=== PATIENT | female | born 1945 | race American Indian/Alaskan Native ===

== ENCOUNTER 2017-10-06 16:02 | Emergency (ER) | payer MEDICARE, SELFPAY ==
--- NOTE | 2017-10-06 16:25 | PC.NURSE ---
pt states she is on a prayer line (on cell phone) asked if i'd wait.
[2017-10-06 16:50] VITALS: BP 145/70; PULSE 74; RESP 18; TEMP 36.9; O2SAT 96
[2017-10-06 18:18] VITALS: BP 137/64; PULSE 74; RESP 18; O2SAT 99
--- NOTE | 2017-10-06 18:58 | PC.NURSE ---
Patient reports she has had increased bilateral lower leg swelling for the last three days. Restarted her normal dose of lasix in the alst 3 days which has helped. Some weeping to lower leg edema.
--- NOTE | 2017-10-06 19:46 | ED.EXTPRO ---
HPI - Extremity Problem General Chief complaint: Extremity Problem,Nontraumatic Stated complaint: states legs are leaking and swelling Time Seen by Provider: 10/06/17 19:24 Source: patient Mode of arrival: ambulatory Limitations: no limitations History of Present Illness HPI Narrative: Patient is a 72-year-old female presenting with all increased leg redness and pain. She is a known diabetic she also has bilateral lymphedema and swelling. She started taking her water pill 3 days ago which she says has helped a lot however redness seems to be getting worse. She denies fever chills or pain. She is not checking her taking her insulin as often as she should. She has no chest pain heart palpitations shortness of breath or other symptoms. MD Complaint: extremity swelling Related Data Home Medications Medication Instructions Recorded Confirmed furosemide [Lasix] 20 mg PO QDAY #0 04/30/12 09/14/17 insulin glargine [Lantus U-100 60 unit SQ HS #0 04/30/12 09/14/17 Insulin] insulin regular human [Humulin R 40 u SQ BID #0 04/30/12 09/14/17 Regular U-100 Insuln] lisinopril 2.5 DAILY #0 04/30/12 09/14/17 alprazolam 0.5 mg tablet 0.5 mg PO BID 09/14/17 09/14/17 carvedilol PO 09/14/17 09/14/17 hydrocodone 5 mg-acetaminophen 325 1 tab PO Q6H PRN 09/14/17 09/14/17 mg tablet sertraline PO 09/14/17 09/14/17 warfarin PO 09/14/17 09/14/17 Previous Rx's Medication Instructions Recorded doxycycline hyclate 100 mg tablet 200 mg PO DAILY #7 tab 09/14/17 clindamycin HCl 300 mg PO QID #28 cap 10/06/17 mupirocin 1 applictn TOP BID #15 gram 10/06/17 Allergies Allergy/AdvReac Type Severity Reaction Status Date / Time Iodinated Contrast- Oral and Allergy Mild Unverified 06/16/17 11:56 IV Dye [Iodinated Contrast Media - IV Dye] Sulfa (Sulfonamide Allergy Mild Unverified 06/16/17 11:56 Antibiotics) Review of Systems Review of Systems All systems reviewed & are unremarkable except as noted in HPI and below Constitutional Reports as per HPI, Denies fever(s) and Denies frequent falls Cardiovascular Denies chest pain, Denies irregular heart rhythm, Denies lightheadedness, Denies palpitations, Denies dyspnea, Denies dyspnea on exertion and Denies orthopnea Respiratory Denies cough, Denies dyspnea, Denies dyspnea on exertion and Denies wheezing Gastrointestinal Gastrointestinal: Denies abdominal pain, Denies change in bowel habits, Denies diarrhea, Denies nausea and Denies vomiting Musculoskeletal Reports as per HPI, Denies back pain, Denies muscle weakness, Denies numbness and Denies tingling Integumentary/Breasts Reports as per HPI Neurologic Denies frequent falls, Denies numbness and Denies tingling Endocrine Denies palpitations Allergic/Immunologic Denies wheezing [facility] Medical History Diabetes (Acute) Lymphedema (Acute) Non-ST elevated myocardial infarction (Acute) Social History Smoking Status: Current every day smoker alcohol intake: never Exam Initial Vital Signs Initial Vital Signs: Vital Signs Temperature 98.4 F 10/06/17 16:50 Pulse Rate 74 10/06/17 16:50 Respiratory Rate 18 10/06/17 16:50 Blood Pressure 145/70 H 10/06/17 16:50 Pulse Oximetry 96 10/06/17 16:50 GENERAL: Obese female sitting in wheelchair no acute distress eating HEENT: Head atraumatic,EOMI, pupils reactive CARDIOVASCULAR: Regular rate and rhythm without murmurs, rubs or gallops. RESPIRATORY: Breath sounds equal bilaterally, no wheezes rales or rhonchi. ABDOMEN: Soft, nontender. Normoactive bowel sounds all 4 quadrants. No guarding or rebound. EXTREMITIES: Normal range of motion, no clubbing or edema. Neurovascularly intact NEUROLOGICAL: Alert and oriented x4.Normal gait and speech. Cranial nerves II through XII grossly intact. SKIN: Bilateral lower extremities chronically lymphedema with erythema, does not extend be above the knee in either leg. left side does have < 0.25 cm open wound with clear drainage. Course Orders Ordered: ED Orders 10/06/17 20:00 Basic Metabolic Panel Stat Complete Blood Count AUTO DIFF Stat Partial Thromboplastin Time Stat Prothrombin Time INR Stat Discontinued Medications Clindamycin Phosphate (Cleocin) 600 mg in 50 mls @ 50 mls/hr IV NOW ONE Stop: 10/06/17 20:35 Last Infusion: 10/06/17 21:11 Dose: 0 mls/hr Admin: 10/06/17 19:55 Dose: 50 mls/hr Vital Signs - 8 hr 10/06/17 16:50 10/06/17 18:18 10/06/17 20:57 Temperature 98.4 F Pulse Rate 74 74 74 Respiratory Rate 18 18 14 Blood Pressure 145/70 H Blood Pressure [Left Arm] 137/64 H 130/64 H Pulse Oximetry 96 99 95 MDM - Extremity (Nontraumatic) Lab Data Result diagrams: 10/06/17 20:00 10/06/17 20:00 Lab Results 10/06/17 10/06/17 10/06/17 Range/Units 20:00 20:00 20:00 WBC 12.2 H (4.5-11.0) X10^3/uL RBC 5.23 H (4.0-5.2) X10^6/uL Hgb 12.9 (12.0-16.0) g/dL Hct 39.6 (36-46) % MCV 75.8 L (80-100) fL MCH 24.6 L (26-34) PG MCHC 32.5 (30-36) % RDW 17.1 H (11.6-14.8) % Plt Count 387 (150-400) X10^3/uL Neut % (Auto) 53.2 (50-75) % Lymph % (Auto) 34.6 (25-40) % [place] % (Auto) 8.4 (3-14) % Eos % (Auto) 2.1 (2-4) % Baso % (Auto) 1.7 (0-2) % Neut # (Auto) 6500 H (2692-7634) /uL PT 13.9 H (10.1-12.7) SECONDS INR 1.3 (0.9-1.3) APTT 27 (26.4-36.2) SECONDS Sodium 141 (137-145) mmol/L Potassium 4.4 (3.4-5.1) mmol/L Chloride 105 (98-107) mmol/L Carbon Dioxide 27 (22-32) mmol/L BUN 11 (7-17) mg/dL Creatinine 0.60 (0.52-1.04) mg/dL Estimated GFR > 60.0 (>60) mL/min BUN/Creatinine Ratio 18.3 (6-22) Glucose 145 H (80-110) mg/dL Calcium 9.0 (8.4-10.2) mg/dL MDM Narrative Medical decision making narrative: Patient does not appear septic she is afebrile not tachycardic. Glucose is slightly elevated 145. Mild leukocytosis at 12. At this time treated outpatient with antibiotics and closely monitor. Patient agrees with this plan. Discharge Plan Departure Patient Disposition: Home, Self-Care Clinical Impression: Cellulitis, Lymphedema Discharge Date/Time: 10/06/17 21:21 Interventions: ED Discharge Assessment Last Done: 10/06/17 21:21 Instructions: DI for Cellulitis -- Adult Activity Restrictions/Additional Instructions: *You have been diagnosed with cellulitis *What to do: *Continue to take medications as directed Clindamycin 4 times a day for 1 week start tomorrow -Mupirocin apply to affected area 3 times a day At your request you're medications have been faxed to [facility] in [place] *Follow up with your primary care provider in 2-3 days *Return to ER if you should have increasing redness, fever, increasing drainage or any new, worsening or concerning symptoms Prescriptions: New clindamycin HCl 300 mg capsule 300 mg PO QID Qty: 28 RF: 0 mupirocin 2 % ointment 1 applictn TOP BID Qty: 15 RF: 0 No Action warfarin PO RF: 0 hydrocodone-acetaminophen 5-325 mg tablet 1 tab PO Q6H PRNRF: 0 carvedilol PO RF: 0 alprazolam [Xanax] 0.5 mg tablet 0.5 mg PO BID RF: 0 sertraline PO RF: 0 doxycycline hyclate 100 mg tablet 200 mg PO DAILY Qty: 7 RF: 0 insulin glargine [Lantus U-100 Insulin] 100 UNIT/1 ML solution 60 unit SQ HS Qty: 0 RF: 0 insulin regular human [Humulin R Regular U-100 Insuln] 100 UNIT/1 ML solution 40 u SQ BID Qty: 0 RF: 0 furosemide [Lasix] 20 MG tablet 20 mg PO QDAY Qty: 0 RF: 0 lisinopril 2.5 MG tablet 2.5 DAILY Qty: 0 RF: 0 Referrals: George Sood MD [Primary Care Provider] -
[2017-10-06] MEDS: CLINDAMYCIN 600 MG/50 ML PIGGYBACK 50 MG IV (19:55)
[2017-10-06 20:21] LABS: Add Manual Diff / Slide Review NO; Basophils Percent Auto 1.7 % (0-2); Eosinophils Percent Auto 2.1 % (2-4); Hematocrit 39.6 % (36-46); Hemoglobin 12.9 g/dL (12.0-16.0); Lymphocytes Percent Auto 34.6 % (25-40); Mean Corpuscular HGB Conc 32.5 % (30-36); Mean Corpuscular Hemoglobin 24.6 PG (26-34); Mean Corpuscular Volume 75.8 fL (80-100); Monocytes Percent Auto 8.4 % (3-14); Neutrophils Absolute Auto 6500 /uL (3000-5900); Neutrophils Percent Auto 53.2 % (50-75); Platelet Count 387 X10^3/uL (150-400); Red Blood Cell Count 5.23 X10^6/uL (4.0-5.2); Red Cell Distribution Width 17.1 % (11.6-14.8); White Blood Cell Count 12.2 X10^3/uL (4.5-11.0)
[2017-10-06 20:26] LABS: INR 1.3 (0.9-1.3); Prothrombin Time 13.9 SECONDS (10.1-12.7)
[2017-10-06 20:28] LABS: PTT Partial Thromboplastin Tim 27 SECONDS (26.4-36.2)
[2017-10-06 20:30] LABS: BUN Creatinine Ratio 18.3 (6-22); Blood Urea Nitrogen 11 mg/dL (7-17); Carbon Dioxide 27 mmol/L (22-32); Chloride 105 mmol/L (98-107); Estimated Glomerular Filt Rate > 60.0 mL/min (>60); Glucose 145 mg/dL (80-110); Sodium 141 mmol/L (137-145)
[2017-10-06 20:34] LABS: HEMOLYSIS 105 (0-50)
[2017-10-06 20:35] LABS: Potassium 4.4 mmol/L (3.4-5.1)
[2017-10-06 20:57] VITALS: BP 130/64; PULSE 74; RESP 14; O2SAT 95
== END 2017-10-06 21:21 | disposition home or self-care (01) ==
PROVIDERS: Emergency Provider Emergency Medicine; PCP Family Medicine
DX: L03.90 Cellulitis, unspecified (principal); I89.0 Lymphedema, not elsewhere classified
CPT/HCPCS: 36591; 80048; 85025; 85610; 85730; 96365; 99283; 99284

== ENCOUNTER 2018-09-15 21:10 | Emergency (ER) | payer MEDICARE, MEDICAID, SELFPAY ==
[2018-09-15 21:14] VITALS: BP 158/67; PULSE 70; RESP 22; TEMP 36.2; O2SAT 94
[2018-09-15 22:00] VITALS: BP 156/54; PULSE 70; RESP 28; O2SAT 90
--- NOTE | 2018-09-15 22:11 | DI.RAD.S_ITS ---
PROCEDURE: XR CHEST 1V INDICATIONS: fall with chest pain TECHNIQUE: One view of the chest was acquired. COMPARISON: [facility], CHEST 2 VIEW, 11/14/2014, 16:01. [facility], , CHEST 2 VIEW, 08/12/2015, 19:56. FINDINGS: Surgical changes and devices: None. Lungs and pleura: There is diffuse interstitial prominence and ground glass opacities without focal consolidation. Streaky bibasilar opacities are again noted. There is mild loss of vascular distinctness. Hazy opacities of the bilateral costophrenic angles may represent small pleural effusions. No pneumothorax. Mediastinum: Cardiomediastinal contours remain stable Bones and chest wall: No suspicious bony lesions. Overlying soft tissues appear unremarkable. IMPRESSION: Diffuse interstitial prominence and ground glass opacities with mild loss of vascular distinctness may represent pulmonary edema. Concurrent chronic background interstitial disease may be present. Inflammatory/infectious process not excluded if clinically appropriate. No focal consolidation. Dictated by: Dinesh Corbett M.D. on 09/16/2018 at 7:58 Approved by: Dinesh Corbett M.D. on 09/16/2018 at 8:04
[2018-09-15 22:30] VITALS: BP 152/59; PULSE 71; O2SAT 89
[2018-09-15 22:36] LABS: Add Manual Diff / Slide Review NO; Basophils Absolute Auto 100 /uL (0-100); Basophils Percent Auto 0.7 % (0-2); Eosinophils Absolute Auto 200 /uL (0-450); Eosinophils Percent Auto 2.2 % (2-4); Lymphocytes Absolute Auto 3300 /uL (1100-4500); Lymphocytes Percent Auto 29.3 % (25-40); Mean Corpuscular HGB Conc 32.6 % (30-36); Mean Corpuscular Hemoglobin 26.2 PG (26-34); Mean Corpuscular Volume 80.5 fL (80-100); Monocytes Absolute Auto 900 /uL (0-900); Neutrophils Absolute Auto 6800 /uL (1500-7000); Neutrophils Percent Auto 59.8 % (50-75); Platelet Count 327 X10^3/uL (150-400); Red Blood Cell Count 4.96 X10^6/uL (4.0-5.2); Red Cell Distribution Width 16.2 % (11.6-14.8); White Blood Cell Count 11.4 X10^3/uL (4.5-11.0)
[2018-09-15 22:46] LABS: BUN Creatinine Ratio 18.3 (6-22); Blood Urea Nitrogen 11 mg/dL (7-17); Calcium 9.1 mg/dL (8.4-10.2); Carbon Dioxide 29 mmol/L (22-32); Chloride 110 mmol/L (98-107); Estimated Glomerular Filt Rate > 60.0 mL/min (>60); Glucose 122 mg/dL (80-110); HEMOLYSIS < 15 (0-50); Potassium 3.3 mmol/L (3.4-5.1); Sodium 145 mmol/L (137-145)
[2018-09-15 22:58] LABS: Troponin I < 0.012 ng/mL (0.01-0.034)
[2018-09-15 23:00] VITALS: BP 166/64; PULSE 69; O2SAT 93
--- NOTE | 2018-09-15 23:51 | DI.CT.S_ITS ---
PROCEDURE: CT HEAD/BRAIN WO CON INDICATIONS: headache, dizzy, weak, hx brain bleed TECHNIQUE: Noncontrast 4.5 mm thick angled axial sections acquired from the foramen magnum to the vertex, with coronal and sagittal reformats. For radiation dose reduction, the following was used: automated exposure control, adjustment of mA and/or kV according to patient size. COMPARISON: [facility], MR, MR BRAIN WITH/WITHOUT CONTRAST, 09/15/2017, 19:01. [facility], CT, CT HEAD WITHOUT CONTRAST, 08/25/2017, 21:18. FINDINGS: Image quality: Excellent. CSF spaces: Basal cisterns are patent. No extra-axial fluid collections. The ventricles are stable in size and shape. Brain: No intracranial bleeds or masses. There is cerebral volume loss for age, with resultant ventricular and sulcal prominence. There are periventricular and deep white matter chronic small vessel ischemic changes. Stable CT appearance of focal area of calcification involving the medial right middle pineal fossa adjacent to the upper portion of the clivus measuring approximately 10 x 6 mm on axial image 11, series 2. There is intracranial internal carotid artery atherosclerosis. Skull and face: Calvarium and visualized facial bones appear intact, without suspicious lesions. Sinuses: Visualized sinuses and mastoids are clear. IMPRESSION: 1. CT head without acute intracranial abnormalities. 2. Stable age-related senescent changes and sequela of chronic small vessel ischemic disease. 3. Stable appearance of medial right middle cranial fossa meningioma. Dictated by: Dinesh Corbtet M.D. on 09/16/2018 at 8:25 Approved by: Dinesh Corbett M.D. on 09/16/2018 at 8:32
[2018-09-16] MEDS: POTASSIUM CHLORIDE 20 MEQ/15 ML UDC 40 MEQ PO (00:23)
[2018-09-16 00:33] VITALS: BP 157/70; PULSE 73; RESP 95
[2018-09-16 02:00] VITALS: BP 150/53; PULSE 72; RESP 24; O2SAT 91
[2018-09-16 03:00] VITALS: BP 160/60; PULSE 74; RESP 24; O2SAT 94
[2018-09-16 03:33] LABS: Calcium Oxalate Crystals Urine Occasional; RBC Urine 0-1/HPF (0-5/HPF); Squamous Epithelial Cell Urine 1-5 /HPF (0-5/HPF); Uric Acid Crystals Urine Few
[2018-09-16 03:34] LABS: Bacteria Urine Few (2-10); Hyaline Casts Urine 0-1/LPF
[2018-09-16 03:39] LABS: Culture Indicated Urine Specimen Cultured; WBC Urine 10-30/HPF (0-5/HPF)
--- NOTE | 2018-09-16 04:53 | ED_ITS ---
HPI - Weakness General Chief complaint: Weakness Stated complaint: fall month ago, ribs hurt Time Seen by Provider: 09/15/18 21:17 Source: patient and family Mode of arrival: ambulatory Limitations: no limitations History of Present Illness HPI Narrative: 73-year-old female nonsmoker with history of diabetes presents with significant other and largely nonspecific complaints including generalized weakness and all-over body pain. She states she suffered a fall about 3 weeks ago and has some rib pain as well as coccyx pain as a result. She denies any shortness of breath or hemoptysis. She has not dizzy and denies blurred vision or trouble with speech. She has no focal neurologic findings. She denies any nausea, vomiting or diarrhea. She denies dysuria, frequency or urgency. She denies any ongoing or repeat falls MD Complaint: generalized weakness Onset (ago): week(s) Duration: intermittent Location: generalized Migration: none Severity: mild Relieving factors: none Exacerbating factors: none Associated symptoms: other Related Data Home Medications Medication Instructions Recorded Confirmed furosemide [Lasix] 20 mg PO QDAY #0 04/30/12 09/14/17 insulin glargine [Lantus U-100 60 unit SQ HS #0 04/30/12 09/14/17 Insulin] insulin regular human [Humulin R 40 u SQ BID #0 04/30/12 09/14/17 Regular U-100 Insuln] lisinopril 2.5 DAILY #0 04/30/12 09/14/17 alprazolam 0.5 mg tablet 0.5 mg PO BID 09/14/17 09/14/17 carvedilol PO 09/14/17 09/14/17 hydrocodone 5 mg-acetaminophen 325 1 tab PO Q6H PRN 09/14/17 09/14/17 mg tablet sertraline PO 09/14/17 09/14/17 warfarin PO 09/14/17 09/14/17 Previous Rx's Medication Instructions Recorded doxycycline hyclate 100 mg tablet 200 mg PO DAILY #7 tab 09/14/17 clindamycin HCl 300 mg PO QID #28 cap 10/06/17 mupirocin 1 applictn TOP BID #15 gram 10/06/17 ciprofloxacin HCl 500 mg PO BID 5 Days #10 tab 09/16/18 Allergies Allergy/AdvReac Type Severity Reaction Status Date / Time Iodinated Contrast- Oral and Allergy Mild Unverified 06/16/17 11:56 IV Dye [Iodinated Contrast Media - IV Dye] Sulfa (Sulfonamide Allergy Mild Unverified 06/16/17 11:56 Antibiotics) amoxicillin [From Augmentin] Allergy Verified 09/16/18 00:24 clavulanic acid Allergy Verified 09/16/18 00:24 [From Augmentin] Review of Systems Constitutional Denies chills, Denies fever(s), Denies lethargy and Reports weakness Comments: Generalized body pain Eyes Denies change in vision, Denies eye discharge, Denies irritation and Denies loss of vision ENT Ears, Nose, Mouth, and Throat: Denies change in voice, Denies neck pain and Denies sore throat Cardiovascular Denies chest pain, Denies irregular heart rhythm, Denies lightheadedness, Denies palpitations, Denies dyspnea, Denies dyspnea on exertion and Denies orthopnea Comments: Bilateral rib pain Respiratory Denies cough, Denies dyspnea, Denies dyspnea on exertion and Denies wheezing Gastrointestinal Gastrointestinal: Denies abdominal pain, Denies change in bowel habits, Denies diarrhea, Denies nausea and Denies vomiting Comments: Coccyx pain Genitourinary Denies hematuria, Denies flank pain, Denies urinary incontinence and Denies urinary urgency Musculoskeletal Denies neck pain Integumentary/Breasts Denies pruritus, Denies erythema, Denies rash and Denies wounds Neurologic Denies confusion, Denies loss of vision and Reports weakness Psychiatric Denies anxiety, Denies confusion, Denies depression, Denies homicidal ideation and Denies suicidal ideation Endocrine Denies palpitations Hematologic/Lymphatic Denies easy bruising Allergic/Immunologic Denies wheezing [facility] Medical History Brain tumor (Acute) Diabetes (Acute) Lymphedema (Acute) Non-ST elevated myocardial infarction (Acute) Social History Smoking Status: Current every day smoker alcohol intake: never Social History Smoking Status: Current every day smoker alcohol intake: never Exam Narrative Exam Narrative: GENERAL: 73-year-old female appears stated age, chronically i ll, obviously uncomfortable. Morbidly obese HEAD: Atraumatic. Normocephalic. No temporal or scalp tenderness. EYES: Pupils equal round and reactive. Extraocular motions intact. No scleral icterus. No injection or drainage. ENT: Nose without bleeding, purulent drainage or septal hematoma. Throat without erythema, tonsillar hypertrophy or exudate. Uvula midline. Airway patent. NECK: Trachea midline. No JVD or lymphadenopathy. Supple, nontender, no meningeal signs. CARDIOVASCULAR: Regular rate and rhythm without murmurs, gallops, or rubs. RESPIRATORY: Pain with palpation of bilateral ribs, no crepitance Clear to auscultation. Breath sounds equal bilaterally. No wheezes, rales, or rhonchi. GASTROINTESTINAL: Abdomen soft, non-tender, nondistended. No hepato- splenomegaly, or palpable masses. No guarding. EXTREMITIES: No clubbing, cyanosis, or edema. No joint tenderness, effusion, or edema noted. BACK: Nontender without deformity or crepitance. No flank tenderness. NEURO: AOx3. SKIN: No rash or erythema. Initial Vital Signs Initial Vital Signs: Vital Signs Temperature 97.1 F L 09/15/18 21:14 Pulse Rate 70 09/15/18 21:14 Respiratory Rate 22 09/15/18 21:14 Blood Pressure 158/67 H 09/15/18 21:14 Pulse Oximetry 94 09/15/18 21:14 Course Orders Ordered: ED Orders 09/15/18 22:11 XR chest 1V Stat EKG-12 Lead Stat 09/15/18 22:25 Basic Metabolic Panel Stat Complete Blood Count AUTO DIFF Stat Troponin I Stat 09/15/18 23:51 CT head/brain wo con Stat 09/16/18 03:14 Urine Culture Stat Urine Microscopic Stat Discontinued Medications Potassium Chloride (Potassium Chloride) 40 meq PO NOW ONE Stop: 09/15/18 23:52 Last Admin: 09/16/18 00:23 Dose: 40 meq Vital Signs - 8 hr 09/15/18 22:00 09/15/18 22:30 09/15/18 23:00 Pulse Rate 70 71 69 Respiratory Rate 28 H Blood Pressure Blood Pressure [Left Arm] 156/54 H 152/59 H 166/64 H Pulse Oximetry 90 L 89 L 93 09/16/18 00:33 09/16/18 02:00 09/16/18 03:00 Pulse Rate 73 72 74 Respiratory Rate 95 H 24 24 Blood Pressure 160/60 H Blood Pressure [Left Arm] 157/70 H 150/53 H Pulse Oximetry 91 94 MDM - Weakness Medical Records Attestation: I reviewed the patient's medical records. Lab Data Result diagrams: 09/15/18 22:25 09/15/18 22:25 Lab Results 09/15/18 09/15/18 09/16/18 Range/Units 22:25 22:25 03:14 WBC 11.4 H (4.5-11.0) X10^3/uL RBC 4.96 (4.0-5.2) X10^6/uL Hgb 13.0 (12.0-16.0) g/dL Hct 40.0 (36-46) % MCV 80.5 (80-100) fL MCH 26.2 (26-34) PG MCHC 32.6 (30-36) % RDW 16.2 H (11.6-14.8) % Plt Count 327 (150-400) X10^3/uL Neut % (Auto) 59.8 (50-75) % Lymph % (Auto) 29.3 (25-40) % [place] % (Auto) 8.0 (3-14) % Eos % (Auto) 2.2 (2-4) % Baso % (Auto) 0.7 (0-2) % Neut # (Auto) 6800 (5170-6964) /uL Lymph # (Auto) 3300 (7386-3571) /uL [place] # (Auto) 900 (0-900) /uL Eos # (Auto) 200 (0-450) /uL Baso # (Auto) 100 (0-100) /uL Sodium 145 (137-145) mmol/L Potassium 3.3 L (3.4-5.1) mmol/L Chloride 110 H (98-107) mmol/L Carbon Dioxide 29 (22-32) mmol/L BUN 11 (7-17) mg/dL Creatinine 0.60 (0.52-1.04) mg/dL Estimated GFR > 60.0 (>60) mL/min BUN/Creatinine Ratio 18.3 (6-22) Glucose 122 H (80-110) mg/dL Calcium 9.1 (8.4-10.2) mg/dL Troponin I < 0.012 (0.01-0.034) ng/mL Urine RBC 0-1/hpf (0-5/HPF) Urine WBC 10-30/hpf H (0-5/HPF) Ur Squamous Epith Cells 1-5 /hpf (0-5/HPF) Calcium Oxalate Crystal Occasional H Uric Acid Crystals Few Urine Bacteria Few (2-10) H (None) Hyaline Casts 0-1/lpf (None) Urine Yeast 1-5/hpf H (None) Ur Culture Indicated? Specimen cultured Urine Dip Bedside Urine Glucose Negative Bedside Urine Bilirubin - Negative Bedside Urine Ketone - Negative Urine Specific [place] 1.020 Bedside Urine Occult Blood - Negative Bedside Urine pH 6.5 Bedside Urine Protein + 30 Bedside Urine Urobilinogen +/- 1mg Bedside Urine Nitrite + Positive Bedside Urine Leukocytes ++ 125 Esterase Imaging Data Chest x-ray: My impression: No Fx. No PNA CT scan - head: Radiologist's impression: No significant abnormalities MDM Narrative Medical decision making narrative: 73-year-old female with prolonged, generalized and nonspecific weakness complains of bilateral rib pain and chest x-ray demonstrating no obvious fractures. She has coccyx pain but no signific ant reproducibility of his pain. Labs are largely unremarkable, mild hypokalemia. Urine notes UTI. Patient ambulates to bathroom. Patient has had all of her questions answered to her apparent satisfaction. Patient given return precautions. She understands and is in agreement with the plan. She was actually discharged prior to receiving prescription for urinary tract infection, call placed to the patient Discharge Plan Departure Patient Disposition: Home Clinical Impression: Weakness, Acute coccygeal pain, Acute hypokalemia, Acute UTI Discharge Date/Time: 09/16/18 03:00 Interventions: ED Discharge Assessment Last Done: 09/16/18 03:00 Instructions: DI for Coccyx Fracture Activity Restrictions/Additional Instructions: *You have been diagnosed with [chronic generalized weakness with coccyx pain] *What to do: *Take medications as directed: Your antibiotic has been electronically transmitted to your pharmacy in [place] *Follow up with your primary care provider in 2-3 days, call for an appointment. Let them know you were seen in the Emergency Department and that we ask that you be seen in follow up *Return to ER if you should have any new, worsening or concerning symptoms Prescriptions: New ciprofloxacin HCl 500 mg tablet 500 mg PO BID 5 Days Qty: 10 RF: 0 No Action warfarin PO RF: 0 hydrocodone-acetaminophen 5-325 mg tablet 1 tab PO Q6H PRNRF: 0 carvedilol PO RF: 0 alprazolam [Xanax] 0.5 mg tablet 0.5 mg PO BID RF: 0 sertraline PO RF: 0 doxycycline hyclate 100 mg tablet 200 mg PO DAILY Qty: 7 RF: 0 insulin glargine [Lantus U-100 Insulin] 100 UNIT/1 ML solution 60 unit SQ HS Qty: 0 RF: 0 insulin regular human [Humulin R Regular U-100 Insuln] 100 UNIT/1 ML solution 40 u SQ BID Qty: 0 RF: 0 furosemide [Lasix] 20 MG tablet 20 mg PO QDAY Qty: 0 RF: 0 lisinopril 2.5 MG tablet 2.5 DAILY Qty: 0 RF: 0 clindamycin HCl 300 mg capsule 300 mg PO QID Qty: 28 RF: 0 mupirocin 2 % ointment 1 applictn TOP BID Qty: 15 RF: 0 Referrals: George Sood MD [Primary Care Provider] -
== END 2018-09-16 03:00 | disposition home or self-care (01) ==
PROVIDERS: Emergency Provider Emergency Medicine; PCP Family Medicine
DX: R53.1 Weakness (principal); M53.3 Sacrococcygeal disorders, not elsewhere classified; E87.6 Hypokalemia; N39.0 Urinary tract infection, site not specified; I25.2 Old myocardial infarction; R03.0 Elevated blood-pressure reading, without diagnosis of hypertension; R06.02 Shortness of breath; W19.XXXA Unspecified fall, initial encounter; Z86.03 Personal history of neoplasm of uncertain behavior; Z79.01 Long term (current) use of anticoagulants
CPT/HCPCS: 36591; 70450; 71045; 80048; 81003; 81015; 84484; 85025; 87086; 93005; 99283; 99285

== ENCOUNTER 2018-10-09 05:16 | Emergency (ER) | payer MEDICARE, MEDICAID, SELFPAY ==
[2018-10-09 05:18] VITALS: BP 139/66; PULSE 74; RESP 20; TEMP 36.6; O2SAT 95; BMI 34.3
--- NOTE | 2018-10-09 05:24 | DI.RAD.S_ITS ---
PROCEDURE: XR CHEST 2V INDICATIONS: cough, congestion TECHNIQUE: 2 views of the chest were acquired. COMPARISON: [facility], , CHEST 2 VIEW, 11/14/2014, 16:01. [facility], , CHEST 2 VIEW, 08/12/2015, 19:56. [facility], , XR CHEST 1V, 09/15/2018, 22:22. FINDINGS: Surgical changes and devices: None. Lungs and pleura: No focal infiltrates are seen. Interstitial prominence is seen. No pleural effusions or pneumothorax. Mediastinum: The cardiac contours are within normal limits. The aorta demonstrates calcification and tortuosity. Bones and chest wall: No suspicious bony abnormalities. Accentuated thoracic kyphosis is seen. Age-appropriate bony degenerative changes are seen. Soft tissues appear unremarkable. IMPRESSION: Interstitial prominence is seen throughout. The interstitial prominence is nonspecific, yet may be related to pulmonary edema. Dictated by: Nicolás Conner M.D. on 10/09/2018 at 7:13 Approved by: Nicolás Conner M.D. on 10/09/2018 at 7:14
[2018-10-09 05:33] VITALS: BP 118/61; PULSE 74; RESP 20; O2SAT 94
--- NOTE | 2018-10-09 05:35 | ED.URI ---
HPI - URI/Sore Throat General Chief Complaint: Upper Respiratory Symptoms Stated Complaint: nose, head sinuses and chest problem Time Seen by Provider: 10/09/18 05:20 Source: patient and family Mode of arrival: ambulatory Limitations: no limitations History of Present Illness HPI Narrative: 73F smoker presents with runny nose, nasal congestion and cough with occasional sputum production for the past few days. She denies any fever chills. She has had no nausea, vomiting or diarrhea. She has some expiratory wheeze. She has some left sided chest pain which is sharp and stabbing and worse with palpation, inspiration, and cough. She denies recent travel. She has not been using breathing treatments. She states she frequently has atypical pneumonia and bronchitis which responds to a [facility] Related Data Home Medications Medication Instructions Recorded Confirmed furosemide [Lasix] 20 mg PO QDAY #0 04/30/12 09/14/17 insulin glargine [Lantus U-100 60 unit SQ HS #0 04/30/12 09/14/17 Insulin] insulin regular human [Humulin R 40 u SQ BID #0 04/30/12 09/14/17 Regular U-100 Insuln] lisinopril 2.5 DAILY #0 04/30/12 09/14/17 alprazolam 0.5 mg tablet 0.5 mg PO BID 09/14/17 09/14/17 carvedilol PO 09/14/17 09/14/17 hydrocodone 5 mg-acetaminophen 325 1 tab PO Q6H PRN 09/14/17 09/14/17 mg tablet sertraline PO 09/14/17 09/14/17 warfarin PO 09/14/17 09/14/17 Previous Rx's Medication Instructions Recorded doxycycline hyclate 100 mg tablet 200 mg PO DAILY #7 tab 09/14/17 clindamycin HCl 300 mg PO QID #28 cap 10/06/17 mupirocin 1 applictn TOP BID #15 gram 10/06/17 azithromycin See Rx Instructions .ROUTE 10/09/18 .COMPLEX #6 tab benzonatate [Tessalon Perles] 100 mg PO BID-TID PRN #10 cap 10/09/18 prednisone 20 mg PO DAILY #5 tab 10/09/18 Allergies Allergy/AdvReac Type Severity Reaction Status Date / Time Iodinated Contrast- Oral and Allergy Mild Unverified 06/16/17 11:56 IV Dye [Iodinated Contrast Media - IV Dye] Sulfa (Sulfonamide Allergy Mild Unverified 06/16/17 11:56 Antibiotics) amoxicillin [From Augmentin] Allergy Verified 09/16/18 00:24 clavulanic acid Allergy Verified 09/16/18 00:24 [From Augmentin] Review of Systems Constitutional Denies chills, Reports fatigue, Denies fever(s), Denies lethargy and Denies weakness Eyes Denies change in vision, Denies eye discharge, Denies irritation and Denies loss of vision ENT Ears, Nose, Mouth, and Throat: Denies change in voice, Reports nasal discharge, Denies neck pain and Denies sore throat Cardiovascular Denies chest pain, Denies irregular heart rhythm, Denies lightheadedness, Denies palpitations, Denies dyspnea, Denies dyspnea on exertion and Denies orthopnea Respiratory Reports cough, Denies dyspnea, Denies dyspnea on exertion and Reports wheezing Gastrointestinal Gastrointestinal: Denies abdominal pain, Denies change in bowel habits, Denies diarrhea, Denies nausea and Denies vomiting Genitourinary Denies hematuria, Denies flank pain, Denies urinary incontinence and Denies urinary urgency Musculoskeletal Denies neck pain Integumentary/Breasts Denies pruritus, Denies erythema, Denies rash and Denies wounds Neurologic Denies confusion, Denies loss of vision and Denies weakness Psychiatric Denies anxiety, Denies confusion, Denies depression, Denies homicidal ideation and Denies suicidal ideation Endocrine Reports fatigue and Denies palpitations Hematologic/Lymphatic Denies easy bruising Allergic/Immunologic Reports wheezing [facility] Medical History Brain tumor (Acute) Diabetes (Acute) Lymphedema (Acute) Non-ST elevated myocardial infarction (Acute) Social History Smoking Status: Current every day smoker alcohol intake: never Social History Smoking Status: Current every day smoker alcohol intake: never Exam Narrative Exam Narrative: GENERAL: 73-year-old female appears stated age, morbidly obese, chronically ill, no obvious or significant distress HEAD: Atraumatic. Normocephalic. No temporal or scalp tenderness. EYES: Pupils equal round and reactive. Extraocular motions intact. ENT: Poor dentition throughout, moist mucous membranes Nose without bleeding, purulent drainage or septal hematoma. Throat without erythema, tonsillar hypertrophy or exudate. Uvula midline. Airway patent. NECK: Trachea midline. No JVD or lymphadenopathy. Supple, nontender, no meningeal signs. CARDIOVASCULAR: Regular rate and rhythm without murmurs, gallops, or rubs. RESPIRATORY: Decreased breath sounds bilaterally with prolonged expiratory phase and mild expiratory wheeze. No crackles or rhonchi noted GASTROINTESTINAL: Abdomen soft, non-tender, nondistended. No hepato-splenomegaly, or palpable masses. No guarding. EXTREMITIES: No clubbing, cyanosis, or edema. No joint tenderness, effusion, or edema noted. BACK: Nontender without deformity or crepitance. No flank tenderness. NEURO: AOx3. SKIN: No rash or erythema. Initial Vital Signs Initial Vital Signs: Vital Signs Temperature 97.9 F 10/09/18 05:18 Pulse Rate 74 10/09/18 05:18 Respiratory Rate 20 10/09/18 05:18 Blood Pressure 139/66 10/09/18 05:18 Pulse Oximetry 95 10/09/18 05:18 Course Orders Ordered: Discontinued Medications Albuterol/Ipratropium (Duoneb) 3 ml INH NOW ONE Stop: 10/09/18 06:02 Last Admin: 10/09/18 06:03 Dose: 3 ml Vital Signs - 8 hr 10/09/18 05:18 10/09/18 05:33 Temperature 97.9 F Pulse Rate 74 74 Respiratory Rate 20 20 Blood Pressure 139/66 Blood Pressure [Right Arm] 118/61 Pulse Oximetry 95 94 MDM - URI/Sore Throat Imaging Data Chest x-ray: Attestation: I personally reviewed and interpreted this imaging study as follows: My impression: NAP. Radiologist's impression: Chart [facility] Diagn[facility] DATE TYPE STATUS AUTHOR Malcolm 10/09/18 05:24 Nicolás Conner 09/15/18 23:51 Dinesh Corbett 09/15/18 22:11 Dinesh Corbett Phyllis 73, F0 1945 DEP ER, ED.LOC - Main ED 162.56cm 90.718kg BMI: 34.3kg/m? Upper Respiratory Symptoms Search Chart No Data to Display ONSET 10/09/18 06:24 Chetna Arellano 73 F [address] [address] XRay Report Signed Patient: Bill Arellano#: [id number] : 5Acct:[id number] Age/Sex: 73 / FDate of Service: 10/09/18 Loc: ED Accession Number: [id number] Procedure: XR chest 2V Ordering Provider: Valdez Pena D.O. PROCEDURE: XR CHEST 2V INDICATIONS: cough, congestion TECHNIQUE: 2 views of the chest were acquired. COMPARISON: [facility], CR, CHEST 2 VIEW, 11/14/2014, 16:01. [facility], CR, CHEST 2 VIEW, 08/12/2015, 19:56. [facility], CR, XR CHEST 1V, 09/15/2018, 22:22. FINDINGS: Surgical changes and devices: None. Lungs and pleura: No focal infiltrates are seen. Interstitial prominence is seen. No pleural effusions or pneumothorax. Mediastinum: The cardiac contours are within normal limits. The aorta demonstrates calcification and tortuosity. Bones and chest wall: No suspicious bony abnormalities. Accentuated thoracic kyphosis is seen. Age-appropriate bony degenerative changes are seen. Soft tissues appear unremarkable. IMPRESSION: Interstitial prominence is seen throughout. The interstitial prominence is nonspecific, yet may be related to pulmonary edema. Dictated by: Nicolás Conner M.D. on 10/09/2018 at 7:13 Approved by: Nicolás Conner M.D. on 10/09/2018 at 7:14 Discharge Plan Departure Patient Disposition: Home Clinical Impression: Atypical pneumonia COPD (chronic obstructive pulmonary disease) Qualifiers: COPD type: COPD with acute exacerbation Qualified Code(s): J44.1 - Chronic obstructive pulmonary disease with (acute) exacerbation Discharge Date/Time: 10/09/18 06:50 Interventions: ED Discharge Assessment Last Done: 10/09/18 06:50 Instructions: DI for Atypical Pneumonia Activity Restrictions/Additional Instructions: *You have been diagnosed with [atypical pneumonia and COPD exacerbation] *What to do: *Take medications as directed: your prescriptions have been sent to [facility] in [place] at your request *Follow up with your primary care provider in 2-3 days, call for an appointment. Let them know you were seen in the Emergency Department and that we ask that you be seen in follow up *Return to ER if you should have any new, worsening or concerning symptoms, such as [fever over 101 F, shaking chills, vomiting, or other worsening or bothersome symptoms] Prescriptions: New prednisone 20 mg tablet 20 mg PO DAILY Qty: 5 RF: 0 azithromycin 250 mg tablet See Rx Instructions .ROUTE .COMPLEX Qty: 6 RF: 0 benzonatate [Tessalon Perles] 100 mg capsule 100 mg PO BID-TID PRN (Reason: cough) Qty: 10 RF: 0 No Action warfarin PO RF: 0 hydrocodone-acetaminophen 5-325 mg tablet 1 tab PO Q6H PRNRF: 0 carvedilol PO RF: 0 alprazolam [Xanax] 0.5 mg tablet 0.5 mg PO BID RF: 0 sertraline PO RF: 0 doxycycline hyclate 100 mg tablet 200 mg PO DAILY Qty: 7 RF: 0 insulin glargine [Lantus U-100 Insulin] 100 UNIT/1 ML solution 60 unit SQ HS Qty: 0 RF: 0 insulin regular human [Humulin R Regular U-100 Insuln] 100 UNIT/1 ML solution 40 u SQ BID Qty: 0 RF: 0 furosemide [Lasix] 20 MG tablet 20 mg PO QDAY Qty: 0 RF: 0 lisinopril 2.5 MG tablet 2.5 DAILY Qty: 0 RF: 0 clindamycin HCl 300 mg capsule 300 mg PO QID Qty: 28 RF: 0 mupirocin 2 % ointment 1 applictn TOP BID Qty: 15 RF: 0 Referrals: George Sood MD [Primary Care Provider] -
--- NOTE | 2018-10-09 05:49 | ED_ITS ---
HPI - URI/Sore Throat General Chief Complaint: Upper Respiratory Symptoms Stated Complaint: nose, head sinuses and chest problem Time Seen by Provider: 10/09/18 05:20 Source: patient and family Mode of arrival: ambulatory Limitations: no limitations History of Present Illness HPI Narrative: 73F smoker presents with runny nose, nasal congestion and cough with occasional sputum production for the past few days. She denies any fever chills. She has had no nausea, vomiting or diarrhea. She has some expiratory wheeze. She has some left sided chest pain which is sharp and stabbing and worse with palpation, inspiration, and cough. She denies recent travel. She has not been using breathing treatments. She states she frequently has atypical pneumonia and bronchitis which responds to a [facility] Related Data Home Medications Medication Instructions Recorded Confirmed furosemide [Lasix] 20 mg PO QDAY #0 04/30/12 09/14/17 insulin glargine [Lantus U-100 60 unit SQ HS #0 04/30/12 09/14/17 Insulin] insulin regular human [Humulin R 40 u SQ BID #0 04/30/12 09/14/17 Regular U-100 Insuln] lisinopril 2.5 DAILY #0 04/30/12 09/14/17 alprazolam 0.5 mg tablet 0.5 mg PO BID 09/14/17 09/14/17 carvedilol PO 09/14/17 09/14/17 hydrocodone 5 mg-acetaminophen 325 1 tab PO Q6H PRN 09/14/17 09/14/17 mg tablet sertraline PO 09/14/17 09/14/17 warfarin PO 09/14/17 09/14/17 Previous Rx's Medication Instructions Recorded doxycycline hyclate 100 mg tablet 200 mg PO DAILY #7 tab 09/14/17 clindamycin HCl 300 mg PO QID #28 cap 10/06/17 mupirocin 1 applictn TOP BID #15 gram 10/06/17 azithromycin See Rx Instructions .ROUTE 10/09/18 .COMPLEX #6 tab benzonatate [Tessalon Perles] 100 mg PO BID-TID PRN #10 cap 10/09/18 prednisone 20 mg PO DAILY #5 tab 10/09/18 Allergies Allergy/AdvReac Type Severity Reaction Status Date / Time Iodinated Contrast- Oral and Allergy Mild Unverified 06/16/17 11:56 IV Dye [Iodinated Contrast Media - IV Dye] Sulfa (Sulfonamide Allergy Mild Unverified 06/16/17 11:56 Antibiotics) amoxicillin [From Augmentin] Allergy Verified 09/16/18 00:24 clavulanic acid Allergy Verified 09/16/18 00:24 [From Augmentin] Review of Systems Constitutional Denies chills, Reports fatigue, Denies fever(s), Denies lethargy and Denies weakness Eyes Denies change in vision, Denies eye discharge, Denies irritation and Denies loss of vision ENT Ears, Nose, Mouth, and Throat: Denies change in voice, Reports nasal discharge, Denies neck pain and Denies sore throat Cardiovascular Denies chest pain, Denies irregular heart rhythm, Denies lightheadedness, Denies palpitations, Denies dyspnea, Denies dyspnea on exertion and Denies orthopnea Respiratory Reports cough, Denies dyspnea, Denies dyspnea on exertion and Reports wheezing Gastrointestinal Gastrointestinal: Denies abdominal pain, Denies change in bowel habits, Denies diarrhea, Denies nausea and Denies vomiting Genitourinary Denies hematuria, Denies flank pain, Denies urinary incontinence and Denies urinary urgency Musculoskeletal Denies neck pain Integumentary/Breasts Denies pruritus, Denies erythema, Denies rash and Denies wounds Neurologic Denies confusion, Denies loss of vision and Denies weakness Psychiatric Denies anxiety, Denies confusion, Denies depression, Denies homicidal ideation and Denies suicidal ideation Endocrine Reports fatigue and Denies palpitations Hematologic/Lymphatic Denies easy bruising Allergic/Immunologic Reports wheezing [facility] Medical History Brain tumor (Acute) Diabetes (Acute) Lymphedema (Acute) Non-ST elevated myocardial infarction (Acute) Social History Smoking Status: Current every day smoker alcohol intake: never Social History Smoking Status: Current every day smoker alcohol intake: never Exam Narrative Exam Narrative: GENERAL: 73-year-old female appears stated age, morbidly obese, chronically ill, no obvious or significant distress HEAD: Atraumatic. Normocephalic. No temporal or scalp tenderness. EYES: Pupils equal round and reactive. Extraocular motions intact. ENT: Poor dentition throughout, moist mucous membranes Nose without bleeding, purulent drainage or septal hematoma. Throat without erythema, tonsillar hypertrophy or exudate. Uvula midline. Airway patent. NECK: Trachea midline. No JVD or lymphadenopathy. Supple, nontender, no meningeal signs. CARDIOVASCULAR: Regular rate and rhythm without murmurs, gallops, or rubs. RESPIRATORY: Decreased breath sounds bilaterally with prolonged expiratory phase and mild expiratory wheeze. No crackles or rhonchi noted GASTROINTESTINAL: Abdomen soft, non-tender, nondistended. No hepato- splenomegaly, or palpable masses. No guarding. EXTREMITIES: No clubbing, cyanosis, or edema. No joint tenderness, effusion, or edema noted. BACK: Nontender without deformity or crepitance. No flank tenderness. NEURO: AOx3. SKIN: No rash or erythema. Initial Vital Signs Initial Vital Signs: Vital Signs Temperature 97.9 F 10/09/18 05:18 Pulse Rate 74 10/09/18 05:18 Respiratory Rate 20 10/09/18 05:18 Blood Pressure 139/66 10/09/18 05:18 Pulse Oximetry 95 10/09/18 05:18 Course Orders Ordered: Discontinued Medications Albuterol/Ipratropium (Duoneb) 3 ml INH NOW ONE Stop: 10/09/18 06:02 Last Admin: 10/09/18 06:03 Dose: 3 ml Vital Signs - 8 hr 10/09/18 05:18 10/09/18 05:33 Temperature 97.9 F Pulse Rate 74 74 Respiratory Rate 20 20 Blood Pressure 139/66 Blood Pressure [Right Arm] 118/61 Pulse Oximetry 95 94 MDM - URI/Sore Throat Imaging Data Chest x-ray: Attestation: I personally reviewed and interpreted this imaging study as follows: My impression: NAP. Radiologist's impression: Chart Viewer Diagnostics DATE TYPE STATUS AUTHOR Malcolm 10/09/18 05:24 Nicolás Conner 09/15/18 23:51 Dinehs Corbett 09/15/18 22:11 Dinesh Corbett Phyllis 73, F0 1945 DEP ER, ED.LOC - Main ED 162.56cm 90.718kg BMI: 34.3kg/m? Upper Respiratory Symptoms Search Chart No Data to Display ONSET 10/09/18 06:24 Chetna Arellano 73 F [address] [address] XRay Report Signed Patient: Bill Arellano#: [id number] : 5Acct:[id number] Age/Sex: 73 / FDate of Service: 10/09/18 Loc: ED Accession Number: [id number] Procedure: XR chest 2V Ordering Provider: Valdez Pena D.O. PROCEDURE: XR CHEST 2V INDICATIONS: cough, congestion TECHNIQUE: 2 views of the chest were acquired. COMPARISON: [facility], CR, CHEST 2 VIEW, 11/14/2014, 16:01. [facility], CR, CHEST 2 VIEW, 08/12/2015, 19:56. [facility], CR, XR CHEST 1V, 09/15/2018, 22:22. FINDINGS: Surgical changes and devices: None. Lungs and pleura: No focal infiltrates are seen. Interstitial prominence is seen. No pleural effusions or pneumothorax. Mediastinum: The cardiac contours are within normal limits. The aorta demonstrates calcification and tortuosity. Bones and chest wall: No suspicious bony abnormalities. Accentuated thoracic kyphosis is seen. Age-appropriate bony degenerative changes are seen. Soft tissues appear unremarkable. IMPRESSION: Interstitial prominence is seen throughout. The interstitial prominence is nonspecific, yet may be related to pulmonary edema. Dictated by: Nicolás Conner M.D. on 10/09/2018 at 7:13 Approved by: Nicolás Conner M.D. on 10/09/2018 at 7:14 Discharge Plan Departure Patient Disposition: Home Clinical Impression: Atypical pneumonia COPD (chronic obstructive pulmonary disease) Qualifiers: COPD type: COPD with acute exacerbation Qualified Code(s): J44.1 - Chronic obstructive pulmonary disease with (acute) exacerbation Discharge Date/Time: 10/09/18 06:50 Interventions: ED Discharge Assessment Last Done: 10/09/18 06:50 Instructions: DI for Atypical Pneumonia Activity Restrictions/Additional Instructions: *You have been diagnosed with [atypical pneumonia and COPD exacerbation] *What to do: *Take medications as directed: your prescriptions have been sent to [facility] in [place] at your request *Follow up with your primary care provider in 2-3 days, call for an appointment. Let them know you were seen in the Emergency Department and that we ask that you be seen in follow up *Return to ER if you should have any new, worsening or concerning symptoms, such as [fever over 101 F, shaking chills, vomiting, or other worsening or bothersome symptoms] Prescriptions: New prednisone 20 mg tablet 20 mg PO DAILY Qty: 5 RF: 0 azithromycin 250 mg tablet See Rx Instructions .ROUTE .COMPLEX Qty: 6 RF: 0 benzonatate [Tessalon Perles] 100 mg capsule 100 mg PO BID-TID PRN (Reason: cough) Qty: 10 RF: 0 No Action warfarin PO RF: 0 hydrocodone-acetaminophen 5-325 mg tablet 1 tab PO Q6H PRNRF: 0 carvedilol PO RF: 0 alprazolam [Xanax] 0.5 mg tablet 0.5 mg PO BID RF: 0 sertraline PO RF: 0 doxycycline hyclate 100 mg tablet 200 mg PO DAILY Qty: 7 RF: 0 insulin glargine [Lantus U-100 Insulin] 100 UNIT/1 ML solution 60 unit SQ HS Qty: 0 RF: 0 insulin regular human [Humulin R Regular U-100 Insuln] 100 UNIT/1 ML solution 40 u SQ BID Qty: 0 RF: 0 furosemide [Lasix] 20 MG tablet 20 mg PO QDAY Qty: 0 RF: 0 lisinopril 2.5 MG tablet 2.5 DAILY Qty: 0 RF: 0 clindamycin HCl 300 mg capsule 300 mg PO QID Qty: 28 RF: 0 mupirocin 2 % ointment 1 applictn TOP BID Qty: 15 RF: 0 Referrals: Goerge Sood MD [Primary Care Provider] -
[2018-10-09 06:01] VITALS: PULSE 69; O2SAT 96
[2018-10-09] MEDS: ALBUTEROL/IPRATROPIUM 3 ML AMPUL INH (06:03)
[2018-10-09] MEDS: ALBUTEROL HFA 60 PUFF/8 GM INH INH (06:20)
[2018-10-09 06:24] VITALS: BP 122/50; PULSE 71; RESP 20; O2SAT 92
== END 2018-10-09 06:50 | disposition home or self-care (01) ==
PROVIDERS: Emergency Provider Emergency Medicine; PCP Family Medicine
DX: J18.9 Pneumonia, unspecified organism (principal); J44.1 Chronic obstructive pulmonary disease with (acute) exacerbation
CPT/HCPCS: 71046; 94640; 99282; 99283

== ENCOUNTER → 2018-11-01 15:03 | Outpatient (CLI) | payer MEDICARE, MEDICAID, SELFPAY ==
--- NOTE | 2018-11-01 15:07 | DI.RAD.S_ITS ---
PROCEDURE: XR CHEST 2V INDICATIONS: cough TECHNIQUE: 2 views of the chest were acquired. COMPARISON: [facility], CR, XR CHEST 2V, 10/09/2018, 5:27. FINDINGS: Surgical changes and devices: None. Lungs and pleura: Lungs are clear. No pleural effusions or pneumothorax. Mediastinum: Mediastinal contours are normal. Heart size is enlarged. There is aortic atherosclerosis. Bones and chest wall: No suspicious bony abnormalities. Soft tissues appear unremarkable. IMPRESSION: Cardiomegaly without overt heart failure. Dictated by: Ronnie Rizvi M.D. on 11/01/2018 at 14:28 Approved by: Ronnie Rizvi M.D. on 11/01/2018 at 14:31
== END ==
PROVIDERS: PCP Family Medicine; Visit Provider Physician Assistant
DX: I51.7 Cardiomegaly (principal)
CPT/HCPCS: 71046

== ENCOUNTER 2020-09-18 23:19 | Inpatient (IN) | payer MEDICARE, MEDICAID, SELFPAY ==
[2020-09-19] VITALS (25 sets, daily range): BP systolic 128–178; BP diastolic 62–77; PULSE 80–100; RESP 16–17; TEMP 36.9; O2SAT 90–95; BMI 35.9
--- NOTE | 2020-09-19 01:00 | PC.NURSE ---
Pt came to [facility] after being seen at [facility] ED. Reports was diagnosed with a DVT in the left leg and cellulitis of bilateral lower extremities. Lower extremities are swollen and red in areas.
[2020-09-19] MEDS: cefTRIAXone 2,000 MG in SODIUM CHLORIDE 0.9% 100 ML 200 ML IV (02:12)
[2020-09-19 02:29] LABS: Add Manual Diff / Slide Review NO; Basophils Absolute Auto 100 /uL (0-100); Basophils Percent Auto 1.2 % (0-2); Eosinophils Absolute Auto 200 /uL (0-450); Eosinophils Percent Auto 2.3 % (2-4); Hemoglobin 12.9 g/dL (12.0-16.0); Lymphocytes Absolute Auto 2900 /uL (1100-4500); Lymphocytes Percent Auto 26.6 % (25-40); Mean Corpuscular HGB Conc 32.3 % (30-36); Mean Corpuscular Hemoglobin 27.2 PG (26-34); Mean Corpuscular Volume 84.2 fL (80-100); Monocytes Absolute Auto 800 /uL (0-900); Monocytes Percent Auto 7.3 % (3-14); Neutrophils Absolute Auto 6900 /uL (1500-7000); Neutrophils Percent Auto 62.6 % (50-75); Platelet Count 292 X10^3/uL (150-400); Red Blood Cell Count 4.75 X10^6/uL (4.0-5.2); Red Cell Distribution Width 15.5 % (11.6-14.8)
[2020-09-19 02:33] LABS: BUN Creatinine Ratio 19.2 (6-22); Blood Urea Nitrogen 10 mg/dL (7-17); Calcium 9.1 mg/dL (8.4-10.2); Carbon Dioxide 29 mmol/L (22-32); Chloride 107 mmol/L (98-107); Estimated Glomerular Filt Rate > 60.0 mL/min (>60); Glucose 223 mg/dL (80-110); HEMOLYSIS 26 (0-50); Sodium 140 mmol/L (137-145)
--- NOTE | 2020-09-19 02:38 | ED_ITS ---
HPI - Extremity Problem General Chief complaint: Extremity Problem,Nontraumatic Stated complaint: possible blood clot left leg Time Seen by Provider: 09/18/20 23:37 Source: patient and family Mode of arrival: Wheelchair Limitations: no limitations History of Present Illness HPI Narrative: 75-year-old female with complex medical history including idiopathic cardiomyopathy, diabetes, hypertension, anxiety depression, diastolic heart failure, PTSD, COPD presents with family in the chief complaint of pain, swelling and redness of her left lower extremity over at least the past few days. She states that she had been seen by her primary care provider and was started on Keflex and had taken maybe a dose or 2 but also had an ultrasound that demonstrated a clot in her left leg. She had been on Coumadin up until a few months ago for prior clots. 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 There was discussion between her digital media director and medical team and it was decided to stop her Coumadin secondary to the risk of aneurysmal bleed. She denies any dizziness, weakness or lightheadedness. She denies chest pain or shortness of breath. She admits to left lower extremity swelling, redness and pain Related Data Home Medications Medication Instructions Recorded Confirmed insulin glargine 100 unit/mL 60 unit SQ HS #0 04/30/12 09/19/20 subcutaneous solution (Lantus U-100 Insulin) insulin regular human 100 unit/mL 40 u SQ BID #0 04/30/12 09/19/20 injection solution (Humulin R Regular U-100 Insulin) alprazolam 0.5 mg tablet (Xanax) 0.5 mg PO BID 09/14/17 09/19/20 atorvastatin 80 mg tablet 80 mg PO DAILY 09/19/20 09/19/20 cephalexin 500 mg capsule 500 mg PO TID 09/19/20 09/19/20 escitalopram oxalate 20 mg tablet 20 mg PO DAILY 09/19/20 09/19/20 furosemide 40 mg tablet 40 mg PO DAILY 09/19/20 09/19/20 hydrocodone 10 mg-acetaminophen 1 tab PO TID PRN 09/19/20 09/19/20 325 mg tablet lisinopril 10 mg tablet 10 mg PO DAILY 09/19/20 09/19/20 Previous Rx's Medication Instructions Recorded enoxaparin 100 mg/mL subcutaneous 90 mg SUBCUT Q12H 30 Days #60 ml 09/19/20 syringe warfarin 5 mg tablet 5 mg PO DAILY 30 Days #30 tab 09/19/20 Allergies Allergy/AdvReac Type Severity Reaction Status Date / Time Iodinated Contrast Media Allergy Mild Verified 09/19/20 00:22 [Iodinated Contrast Media - IV Dye] Sulfa (Sulfonamide Allergy Mild Verified 09/19/20 00:22 Antibiotics) amoxicillin [From Augmentin] Allergy Verified 09/19/20 00:22 clavulanic acid Allergy Verified 09/19/20 00:22 [From Augmentin] Review of Systems Review of Systems Narrative: GENERAL: Denies chills, fatigue, malaise, fever, sweats. HEENT: Denies sinus pain, ear pain, sore throat, difficulty swallowing, dizziness. RESPIRATORY: Denies dyspnea, cough, wheezing, hemoptysis, sputum. CARDIOVASCULAR: Denies chest pain, palpitations, orthopnea, edema, GASTROINTESTINAL: Denies nausea, vomiting, abdominal pain, diarrhea, constipation, melena. : Denies dysuria, frequency, incontinence, hematuria, urinary retention. MUSCULOSKELETAL: denies weakness, joint pain, or bony pain SKIN: See HPI NEUROLOGIC: Denies weakness, headache, numbness, change in speech, confusion, seizures, incoordination. PSYCHIATRIC: No concerning psychosocial issues. 12 point review of systems is negative except for those stated above Patient History Medical History (Updated 09/19/20 @ 08:22 by Joel Ivy DO) Brain tumor COPD (chronic obstructive pulmonary disease) Diabetes Diastolic heart failure Lymphedema Non-ST elevated myocardial infarction Surgical History (Updated 09/19/20 @ 08:23 by Joel Ivy DO) No pertinent past surgical history Social History Smoking Status: Current every day smoker alcohol intake: never Smoking Status: Current every day smoker alcohol intake frequency: holidays/special occasions only Substance Use Type: does not use Exam Narrative Exam Narrative: GENERAL: [75] year old patient appears stated age. Well- developed patient, in mild distress. HEAD: Atraumatic. Normocephalic. EYES: Pupils equal round and reactive. Extraocular motions intact. No scleral icterus. No injection or drainage. ENT: Nose without bleeding, purulent drainage. Throat without erythema, tonsillar hypertrophy or exudate. Airway patent. NECK: Trachea midline. Non tender CARDIOVASCULAR: Regular rate and rhythm without murmurs, gallops, or rubs. RESPIRATORY: Clear to auscultation. Breath sounds equal bilaterally. No wheezes, rales, or rhonchi. GASTROINTESTINAL: Abdomen soft, non-tender, nondistended. EXTREMITIES: Left lower extremity with noted edema, evidence of chronic venous stasis but also the appearance of a fairly well demarcated and circumferential erythema, warmth and tenderness. Additionally, she has pain and tenderness on palpation of her medial thigh with swelling. BACK: Nontender without deformity or crepitance. No flank tenderness. NEURO: AOx3. SKIN: No rash or erythema of visible areas Initial Vital Signs Initial Vital Signs: Vital Signs Pulse Rate 80 09/19/20 00:09 Pulse Oximetry 94 09/19/20 00:09 Course Course Course Narrative: We spent an extensive amount of time attempting to track down records. The patient had been at [facility] for upwards of 9 hours and for various reasons had become frustrated and elected to sign out Against Medical Advice and presented to our department. They are in the process of getting her admitted to the hospital for the treatment of cellulitis of her lower extremity as well as the initiation of anticoagulation for this newly di scovered left common femoral vein DVT. Is unclear at this point time where the patient had a head CT that noted an aneurysm. She did have a CT scan here few years ago that makes no mention of this. 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 Recommends heparin and transition to coumadin. He took her info to relay to his team for help with outpatient follow up Orders Ordered: ED Orders 09/21/20 05:45 Partial Thromboplastin Time DAILY 09/21/20 06:14 Prothrombin Time INR DAILY 09/22/20 05:45 Partial Thromboplastin Time DAILY 09/23/20 05:45 Partial Thromboplastin Time DAILY 09/24/20 05:45 Partial Thromboplastin Time DAILY 09/25/20 05:45 Partial Thromboplastin Time DAILY Acetaminophen (Acetaminophen 325 Mg Tablet) 650 mg PO Q6HR PRN PRN Reason: Fever/Mild Pain (1-3) Al Hydrox/Mg Hydrox/Simethicone (Mag Hydrox/Alum/Simeth 30 Ml Udc) 30 ml PO Q6HR PRN PRN Reason: Dyspepsia Enoxaparin Sodium (Enoxaparin 100 Mg/Ml Syringe) 95 mg SUBCUT BID [facility] Last Admin: 09/19/20 08:30 Dose: Not Given Documented by: JYOTHI Naloxone HCl (Naloxone 0.4 Mg/Ml Vial) 0.2 mg IV Q2MIN PRN PRN Reason: Opiate Reversal Ondansetron HCl (Ondansetron 4 Mg/2 Ml Inj) 4 mg IV Q8HR PRN PRN Reason: Nausea And Vomiting Oxycodone HCl (Oxycodone Ir 5 Mg Tablet) 5 mg PO Q6HR PRN PRN Reason: Pain, Moderate (4-6) Sennosides (Sennosides 8.6 Mg Tablet) 17.2 mg PO BEDTIME [facility] Discontinued Medications Apixaban (Apixaban 5 Mg Tablet) 5 mg PO NOW ONE Stop: 09/19/20 07:44 Last Admin: 09/19/20 10:34 Dose: Not Given Documented by: JYOTHI Diphenhydramine HCl (Diphenhydramine 50 Mg/Ml Vial) 25 mg IV NOW ONE Stop: 09/19/20 04:05 Last Admin: 09/19/20 04:15 Dose: 25 mg Documented by: ANNABEL Enoxaparin Sodium (Enoxaparin 40 Mg/0.4 Ml Syringe) 95 mg 1 mg/kg (95 mg) SUBC UT NOW ONE Stop: 09/19/20 09:18 Last Admin: 09/19/20 09:31 Dose: 95 mg Documented by: JYOTHI Heparin Sodium (Porcine) (Heparin 5,000 Unit/Ml Vial) 7,500 unit IV NOW ONE Stop: 09/19/20 05:34 Last Admin: 09/19/20 05:51 Dose: 7,500 unit Documented by: ANNABEL Ceftriaxone Sodium 2,000 mg/ (Sodium Chloride) 100 mls @ 200 mls/hr IV NOW ONE Stop: 09/19/20 01:57 Last Infusion: 09/19/20 02:59 Dose: 0 mls/hr Documented by: Admin: 09/19/20 02:12 Dose: 200 mls/hr Documented by: ANNABEL Heparin Sodium/Dextrose (Heparin Drip) 25,000 unit in 500 mls @ 34.128 mls/hr IV CONT MAAME; Protocol Last Titration: 09/19/20 08:31 Dose: 0 units/kg/hr, 0 mls/hr Documented by: Admin: 09/19/20 05:52 Dose: 18 units/kg/hr, 34.128 mls/hr Documented by: ANNABEL Methylprednisolone (Methylprednisolone 125 Mg/2 Ml Vial) 125 mg IV NOW ONE Stop: 09/19/20 04:05 Last Admin: 09/19/20 04:15 Dose: 125 mg Documented by: ANNABEL Warfarin Sodium (Warfarin 5 Mg Tablet) 5 mg PO NOW ONE Stop: 09/19/20 09:18 Last Admin: 09/19/20 10:05 Dose: 5 mg Documented by: JYOTHI Vital Signs Vital signs: Vital Signs - 8 hr 09/19/20 00:09 09/19/20 00:22 09/19/20 00:30 Temperature 98.5 F Pulse Rate 80 82 81 Respiratory Rate 16 Blood Pressure 176/73 H Pulse Oximetry 94 94 92 09/19/20 00:31 09/19/20 01:00 09/19/20 01:01 Temperature Pulse Rate 81 85 85 Respiratory Rate Blood Pressure 161/65 H 154/69 H Pulse Oximetry 92 91 90 L 09/19/20 01:30 09/19/20 01:31 Temperature Pulse Rate 87 88 Respiratory Rate Blood Pressure 131/62 Pulse Oximetry 90 L 90 L MDM - Extremity (Nontraumatic) Lab Data Result diagrams: 09/19/20 05:50 09/19/20 02:09 Labs: Lab Results 09/19/20 09/19/20 09/19/20 Range/Units 02:09 02:09 02:09 WBC 11.0 (4.5-11.0) X10^3/uL RBC 4.75 (4.0-5.2) X10^6/uL Hgb 12.9 (12.0-16.0) g/dL Hct 40.0 (36-46) % MCV 84.2 (80-100) fL MCH 27.2 (26-34) PG MCHC 32.3 (30-36) % RDW 15.5 H (11.6-14.8) % Plt Count 292 (150-400) X10^3/uL Neut % (Auto) 62.6 (50-75) % Lymph % (Auto) 26.6 (25-40) % Kemper % (Auto) 7.3 (3-14) % Eos % (Auto) 2.3 (2-4) % Baso % (Auto) 1.2 (0-2) % Neut # (Auto) 6900 (0927-3047) /uL Lymph # (Auto) 2900 (1287-3942) /uL Kemper # (Auto) 800 (0-900) /uL Eos # (Auto) 200 (0-450) /uL Baso # (Auto) 100 (0-100) /uL PT (10.1-12.7) SECONDS INR (0.9-1.3) APTT (26.4-36.2) SECONDS Sodium 140 (137-145) mmol/L Potassium 4.0 (3.4-5.1) mmol/L Chloride 107 (98-107) mmol/L Carbon Dioxide 29 (22-32) mmol/L BUN 10 (7-17) mg/dL Creatinine 0.52 (0.52-1.04) mg/dL Estimated GFR > 60.0 (>60) mL/min BUN/Creatinine Ratio 19.2 (6-22) Glucose 223 H (80-110) mg/dL Calcium 9.1 (8.4-10.2) mg/dL Magnesium 1.8 (1.6-2.3) mg/dL NT-Pro-B Natriuret Pep (<450) pg/mL 09/19/20 09/19/20 09/19/20 Range/Units 02:09 05:50 05:50 WBC (4.5-11.0) X10^3/uL RBC (4.0-5.2) X10^6/uL Hgb 12.8 (12.0-16.0) g/dL Hct 39.4 (36-46) % MCV (80-100) fL MCH (26-34) PG MCHC (30-36) % RDW (11.6-14.8) % Plt Count (150-400) X10^3/uL Neut % (Auto) (50-75) % Lymph % (Auto) (25-40) % Kemper % (Auto) (3-14) % Eos % (Auto) (2-4) % Baso % (Auto) (0-2) % Neut # (Auto) (2093-8935) /uL Lymph # (Auto) (6716-7249) /uL Kemper # (Auto) (0-900) /uL Eos # (Auto) (0-450) /uL Baso # (Auto) (0-100) /uL PT (10.1-12.7) SECONDS INR (0.9-1.3) APTT 32 D (26.4-36.2) SECONDS Sodium (137-145) mmol/L Potassium (3.4-5.1) mmol/L Chloride (98-107) mmol/L Carbon Dioxide (22-32) mmol/L BUN (7-17) mg/dL Creatinine (0.52-1.04) mg/dL Estimated GFR (>60) mL/min BUN/Creatinine Ratio (6-22) Glucose (80-110) mg/dL Calcium (8.4-10.2) mg/dL Magnesium (1.6-2.3) mg/dL NT-Pro-B Natriuret Pep 139 (<450) pg/mL 09/19/20 Range/Units 05:50 WBC (4.5-11.0) X10^3/uL RBC (4.0-5.2) X10^6/uL Hgb (12.0-16.0) g/dL Hct (36-46) % MCV (80-100) fL MCH (26-34) PG MCHC (30-36) % RDW (11.6-14.8) % Plt Count (150-400) X10^3/uL Neut % (Auto) (50-75) % Lymph % (Auto) (25-40) % Kemper % (Auto) (3-14) % Eos % (Auto) (2-4) % Baso % (Auto) (0-2) % Neut # (Auto) (3135-6000) /uL Lymph # (Auto) (0558-9197) /uL Kemper # (Auto) (0-900) /uL Eos # (Auto) (0-450) /uL Baso # (Auto) (0-100) /uL PT 12.3 (10.1-12.7) SECONDS INR 1.1 (0.9-1.3) APTT (26.4-36.2) SECONDS Sodium (137-145) mmol/L Potassium (3.4-5.1) mmol/L Chloride (98-107) mmol/L Carbon Dioxide (22-32) mmol/L BUN (7-17) mg/dL Creatinine (0.52-1.04) mg/dL Estimated GFR (>60) mL/min BUN/Creatinine Ratio (6-22) Glucose (80-110) mg/dL Calcium (8.4-10.2) mg/dL Magnesium (1.6-2.3) mg/dL NT-Pro-B Natriuret Pep (<450) pg/mL Discharge Plan Departure Patient Disposition: Admitted As Inpatient Clinical Impression: Cellulitis of left leg DVT (deep venous thrombosis) Qualifiers: DVT location: lower extremity Affected thrombotic vein of extremity: femoral Chronicity: acute Laterality: left Qualified Code(s): I82.412 - Acute embolism and thrombosis of left femoral vein Admit Date/Time: 09/19/20 07:52 Admit Provider: Joel Ivy
[2020-09-19] MEDS: methylPREDNISolone 125 MG/2 ML VIAL IV (04:15)
[2020-09-19] MEDS: diphenhydrAMINE 50 MG/ML VIAL 25 MG IV (04:15)
[2020-09-19] MEDS: HEPARIN 5,000 UNIT/ML VIAL 7500 UNIT IV (05:51)
[2020-09-19] MEDS: HEPARIN DRIP 25,000 UNIT/500 ML IV.SOLN 34.128 UNIT IV (05:52)
[2020-09-19 05:58] LABS: Hematocrit 39.4 % (36-46); Hemoglobin 12.8 g/dL (12.0-16.0)
[2020-09-19 06:05] LABS: PTT Partial Thromboplastin Tim 32 SECONDS (26.4-36.2)
[2020-09-19 06:46] LABS: INR 1.1 (0.9-1.3); Prothrombin Time 12.3 SECONDS (10.1-12.7)
[2020-09-19 06:51] LABS: Magnesium 1.8 mg/dL (1.6-2.3)
[2020-09-19 07:01] LABS: NT-proBNP (BNP-Adult 18+) 139 pg/mL (<450)
--- NOTE | 2020-09-19 08:06 | PM.HP.1 ---
History of Present Illness History of Present Illness Date Patient Seen: 09/19/20 Time Patient Seen: 08:07 Chief complaint: possible blood clot left leg Narrative: Chetna Arellano is a 75-year-old female with a past medical history of diastolic heart failure, diabetes on insulin, hypertension, anxiety depression, PTSD, and COPD who presented initially to the [facility] via her PCP recommendation for swelling and redness over her left lower extremity. This is been going on over approximately 4 weeks according to the patient, and she was started on Keflex by her PCP recently. 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 She denies any shortness of breath, chest pain, nausea, vomiting, diarrhea, fever, chills. She states that she has been walking on her legs currently, and that the pain has improved since arrival in the emergency room. Was able to review her left lower extremity ultrasound from [facility] which showed a nonocclusive clot in her left femoral vein. There are conflicting stories that the patient left Against Medical Advice from [facility], however the patient says that she was transferred here. In the emergency room, the patient was mildly hypertensive but the remainder of her vital signs were unremarkable. Laboratory evaluation showed a glucose of 223 but was also otherwise unremarkable. Given her recent stable aneurysm, emergency room provider called [facility] neuro surgery who did not see any evidence to withhold anticoagulation in this patient. They specifically recommended a heparin drip, and the patient was subsequently admitted to Medicine as well as for a possible low left lower extremity cellulitis. Given the patient's improvement in her swelling and ability to walk, she can be on Lovenox injections for her lower extremity DVT which is more likely leading to her lower extremity symptoms rather than an overt cellulitis given her current appearance. She is safe at this time to discharge home and follow-up with her primary care provider for possible NOAC or initiation of Coumadin. Patient History Medical History (Updated 09/19/20 @ 08:22 by Joel Ivy DO) Brain tumor COPD (chronic obstructive pulmonary disease) Diabetes Diastolic heart failure Lymphedema Non-ST elevated myocardial infarction Surgical History (Updated 09/19/20 @ 08:23 by Joel Ivy DO) No pertinent past surgical history Family & Social History Family history unavailable: Yes (patient states she is unaware of her past family history) Safety & Behavioral: Feels Safe in Current Yes Environment Been Physically Hurt or No Threatened By a Person Tobacco & Substance use: Smoking Status Current every day smoker alcohol intake never alcohol intake frequency holiday/special occasion Substance Use Type does not use Meds Home Medications and Allergies Home Medications Medication Instructions Recorded Confirmed Type insulin glargine 100 unit/mL 60 unit SQ HS #0 04/30/12 09/19/20 History subcutaneous solution (Lantus U-100 Insulin) insulin regular human 100 unit/mL 40 u SQ BID #0 04/30/12 09/19/20 History injection solution (Humulin R Regular U-100 Insulin) alprazolam 0.5 mg tablet (Xanax) 0.5 mg PO BID 09/14/17 09/19/20 History atorvastatin 80 mg tablet 80 mg PO DAILY 09/19/20 09/19/20 History cephalexin 500 mg capsule 500 mg PO TID 09/19/20 09/19/20 History enoxaparin 100 mg/mL subcutaneous 90 mg SUBCUT Q12H 30 Days #60 ml 09/19/20 Rx syringe escitalopram oxalate 20 mg tablet 20 mg PO DAILY 09/19/20 09/19/20 History furosemide 40 mg tablet 40 mg PO DAILY 09/19/20 09/19/20 History hydrocodone 10 mg-acetaminophen 1 tab PO TID PRN 09/19/20 09/19/20 History 325 mg tablet lisinopril 10 mg tablet 10 mg PO DAILY 09/19/20 09/19/20 History warfarin 5 mg tablet 5 mg PO DAILY 30 Days #30 tab 09/19/20 Rx Allergies Allergy/AdvReac Type Severity Reaction Status Date / Time Iodinated Contrast Media Allergy Mild Verified 09/19/20 00:22 [Iodinated Contrast Media - IV Dye] Sulfa (Sulfonamide Allergy Mild Verified 09/19/20 00:22 Antibiotics) amoxicillin [From Augmentin] Allergy Verified 09/19/20 00:22 clavulanic acid Allergy Verified 09/19/20 00:22 [From Augmentin] Review of Systems Review of Systems Narrative: All other systems reviewed with the patient and are negative unless otherwise stated. Exam Vital Signs (past 8 hours): - 09/19/20 00:09 09/19/20 00:22 09/19/20 00:30 Temperature 98.5 F Pulse Rate 80 82 81 Respiratory Rate 16 Blood Pressure 176/73 H Pulse Oximetry 94 94 92 09/19/20 00:31 09/19/20 01:00 09/19/20 01:01 Temperature Pulse Rate 81 85 85 Respiratory Rate Blood Pressure 161/65 H 154/69 H Pulse Oximetry 92 91 90 L 09/19/20 01:30 09/19/20 01:31 09/19/20 02:00 Temperature Pulse Rate 87 88 87 Respiratory Rate Blood Pressure 131/62 146/65 H Pulse Oximetry 90 L 90 L 94 09/19/20 02:30 09/19/20 02:42 09/19/20 03:00 Temperature Pulse Rate 82 88 Respiratory Rate Blood Pressure 151/67 H 143/65 H Pulse Oximetry 93 95 09/19/20 03:30 09/19/20 04:00 09/19/20 04:30 Temperature Pulse Rate Respiratory Rate Blood Pressure 141/65 H 150/65 H 133/63 Pulse Oximetry 94 94 09/19/20 05:00 09/19/20 05:30 09/19/20 05:49 Temperature Pulse Rate 86 Respiratory Rate Blood Pressure 137/63 148/67 H Pulse Oximetry 93 09/19/20 06:00 09/19/20 06:30 09/19/20 07:00 Temperature Pulse Rate 89 91 H 95 H Respiratory Rate Blood Pressure 151/70 H 147/66 H 133/68 Pulse Oximetry 94 94 92 09/19/20 07:17 09/19/20 07:30 09/19/20 07:31 Temperature Pulse Rate 100 H 94 H 95 H Respiratory Rate Blood Pressure 128/65 178/77 H Pulse Oximetry 93 94 Oxygen Delivery Method Room Air Narrative Exam Narrative: GENERAL APPEARANCE: Chronically ill-appearing elderly female, appears older than stated age, no acute distress. SKIN: Inspection of the skin reveals no ulcerations or petechiae. Please note below her lower extremities. NECK: Supple and symmetric. There was no thyroid enlargement, and no tenderness, or masses were felt. CHEST: Normal AP diameter and normal contour without any kyphoscoliosis. LUNGS: Auscultation of the lungs revealed no wheezes, rhonchi, or rales. CARDIOVASCULAR: There was a regular rate and rhythm without any murmurs, gallops, rubs. Peripheral pulses were 2+ and symmetric. ABDOMEN: Soft and nontender with normal bowel sounds. No ascites was noted. MUSCULOSKELETAL: There was no tenderness or effusions noted. Muscle strength and tone were normal. EXTREMITIES: No cyanosis, clubbing. There is chronic lower extremity edema, left slightly bigger than right. There are chronic venous stasis changes bilaterally, there is skin darkening bilaterally and possibly minimal erythema on the left compared to the right, but she is hypersensitive bilaterally and notes tenderness to bilateral lower extremities. NEUROLOGIC: Alert and oriented x 3. Probable cognitive impairment. Strength is +5/5 in the Upper Extremities and Lower Extremities Bilaterally. Sensation to touch was normal. Objective Labs Result Diagrams: 09/19/20 05:50 09/19/20 02:09 Labs: Laboratory Results - last 24 hr 09/19/20 09/19/20 09/19/20 02:09 02:09 02:09 WBC 11.0 RBC 4.75 Hgb 12.9 Hct 40.0 MCV 84.2 MCH 27.2 MCHC 32.3 RDW 15.5 H Plt Count 292 Neut % (Auto) 62.6 Lymph % (Auto) 26.6 Logan % (Auto) 7.3 Eos % (Auto) 2.3 Baso % (Auto) 1.2 Neut # (Auto) 6900 Lymph # (Auto) 2900 Logan # (Auto) 800 Eos # (Auto) 200 Baso # (Auto) 100 PT INR APTT Sodium 140 Potassium 4.0 Chloride 107 Carbon Dioxide 29 BUN 10 Creatinine 0.52 Estimated GFR > 60.0 BUN/Creatinine Ratio 19.2 Glucose 223 H Calcium 9.1 Magnesium 1.8 NT-Pro-B Natriuret Pep 09/19/20 09/19/20 09/19/20 02:09 05:50 05:50 WBC RBC Hgb 12.8 Hct 39.4 MCV MCH MCHC RDW Plt Count Neut % (Auto) Lymph % (Auto) Logan % (Auto) Eos % (Auto) Baso % (Auto) Neut # (Auto) Lymph # (Auto) Logan # (Auto) Eos # (Auto) Baso # (Auto) PT INR APTT 32 D Sodium Potassium Chloride Carbon Dioxide BUN Creatinine Estimated GFR BUN/Creatinine Ratio Glucose Calcium Magnesium NT-Pro-B Natriuret Pep 139 09/19/20 05:50 WBC RBC Hgb Hct MCV MCH MCHC RDW Plt Count Neut % (Auto) Lymph % (Auto) Logan % (Auto) Eos % (Auto) Baso % (Auto) Neut # (Auto) Lymph # (Auto) Logan # (Auto) Eos # (Auto) Baso # (Auto) PT 12.3 INR 1.1 APTT Sodium Potassium Chloride Carbon Dioxide BUN Creatinine Estimated GFR BUN/Creatinine Ratio Glucose Calcium Magnesium NT-Pro-B Natriuret Pep Assessment & Plan Assessment & Plan narrative: Chetna Arellano is a 75-year-old female with a past medical history of diastolic heart failure, diabetes on insulin, hypertension, anxiety depression, PTSD, and COPD who presented initially to the [facility] via her PCP recommendation for swelling and redness over her left lower extremity. Given the patient's improvement in her swelling and ability to walk, she can be on Lovenox injections for her lower extremity DVT which is more likely leading to her lower extremity symptoms rather than an overt cellulitis given her current appearance. She is safe at this time to discharge home and follow-up with her primary care provider for possible NOAC or initiation of Coumadin. 1. L Common femoral vein dvt - start lovenox bridge and coumadin. Follow up with PMD for re-initiation of coumadin and further titration. She was initially started on heparin infusion but safe for transition to lovenox and coumadin currently. 2. L leg swelling, possible mild cellulitis - likely related to femoral DVT, erythema is currently minimal and she is able to ambulate and pain is currently controlled. Recommend continuing outpatient cephalexin for possible cellulitis prescribed already as an outpatient. She was given a dose of ceftriaxone by the ER provider. 3. diastolic heart failure, chronic - no need for repeat TTE at this time. 4. HTN 5. PTSD, chronic 6. COPD, chronic - no medication changes are recommended at this time to her chronic medications. Continue prescibred antibiotics, add lovenox and coumadin as noted above. Dispo: stable for discharge home. surrogate decision maker is the patient's son. patient states she is full code. Please note this H&P will serve as her discharge summary as well. Time Spent With Patient Time with patient: Greater than 35 minutes Quality MIPS - Admit I confirm the patient?s Advance Care Plan is present, Code status is documented, Surrogate decision maker is in patient?s record [If Yes, STOP here]: Yes MIPS - DC The patient has current or prior documentation of left ventricular ejection fraction (LVEF) less than 40%, or moderate or severely depressed left ventricular systolic function.: No
--- NOTE | 2020-09-19 08:31 | PC.NURSE ---
went in to room at 0740 am and patient was disconnected from heparin gtt, pt states the doctor unplugged me explained to patient I spoke with MD and he was just in room reccently while medication was running and he had not disconnected it. Pt refused to have heparin reconnected Leave me alone I just need to go the bathroom 0825 Explained need for lovenox shot and that she will be DC this am to home with follow up instructions and med instructions. Pt refuses to have lovenox shot. Notified Dr Ivy who will come speak with patient again as he is completing her discharge. Updated patient that Dr Ivy will return and speak with her as soon as he can. Updated patients son via phone and he is sending patient a ride home, significant other of patient will be taking patient home. heparin gtt not infusing. lovenox not given. PIV in place until ready for discharge. Pt not connected to monitor and will not allow being reconnected.
[2020-09-19] MEDS: ENOXAPARIN 40 MG/0.4 ML SYRINGE 95 MG SUBCUT (09:31)
--- NOTE | 2020-09-19 09:43 | PC.NURSE ---
0960 Dr patiño by and spent extensive time with patient. pt educated and updated on dc plan. pt agreeable to dc home. pt will recieve first dose of lovenox sq and coumadin po prior to leaving with rx sent to [facility]. pt up to eat meal and piv removed, son and ride here. dc instructions printed and sent by house sup from acute care.
[2020-09-19] MEDS: WARFARIN 5 MG TABLET PO (10:05)
--- NOTE | 2020-09-19 10:15 | PC.NURSE ---
1000 spoke at length again with patient. pt remains agreeable to dc home and understanding of need to take prescribed po antibiotics, daily coumadin first dose given here, and daily lovenox shots. pt understands need to follow up for dvt care and medication and lab monitoring. pt reports she is safe to go home pt agreeableness verified by 2 nurses.
== END 2020-09-19 07:55 | disposition home or self-care (01) | DRG 300 ==
LOC: ED 09-19 05:49 → AC 09-19 07:52
PROVIDERS: Nurse Practitioner Family; Admitting Provider Internal Medicine; Emergency Provider Emergency Medicine; PCP Family Medicine; Referring Provider Emergency Medicine; Visit Provider Internal Medicine
DX: I82.412 Acute embolism and thrombosis of left femoral vein (principal); I50.32 Chronic diastolic (congestive) heart failure; F17.210 Nicotine dependence, cigarettes, uncomplicated; I11.0 Hypertensive heart disease with heart failure; E11.9 Type 2 diabetes mellitus without complications; Z79.4 Long term (current) use of insulin
CPT/HCPCS: 36415; 80048; 83735; 83880; 85014; 85018; 85025; 85610; 85730; 87040; 96365; 96367; 96372; 96375; 99283; 99284; J0696; J1200; J1644; J1650; J2930

== ENCOUNTER → 2023-05-28 09:44 | Outpatient (CLI) | payer MEDICARE, MEDICAID, SELFPAY | PROVIDERS: PCP Family Medicine; Referring Provider Physician Assistant; Visit Provider Surgery | DX: L97.822 Non-pressure chronic ulcer of other part of left lower leg with fat layer exposed (principal); L97.812 Non-pressure chronic ulcer of other part of right lower leg with fat layer exposed; I89.0 Lymphedema, not elsewhere classified; L53.9 Erythematous condition, unspecified; L08.89 Other specified local infections of the skin and subcutaneous tissue; I10 Essential (primary) hypertension; F17.210 Nicotine dependence, cigarettes, uncomplicated | CPT/HCPCS: 11042; 11045; 87070; 87075; 87077; 87147; 87186; 87205; 99204; 99214 ==

== ENCOUNTER 2024-05-17 11:17 | Inpatient (IN) | payer MEDICARE, MEDICAID, SELFPAY ==
[2024-05-17] VITALS (46 sets, daily range): BP systolic 93–133; BP diastolic 45–64; PULSE 74–89; RESP 16–33; TEMP 36.4–37.1; O2SAT 83–99; BMI 31.2
--- NOTE | 2024-05-17 11:32 | DI.RAD.S_ITS ---
PROCEDURE: XR CHEST 1V INDICATIONS: suspected sepsis TECHNIQUE: One view of the chest was acquired. COMPARISON: [facility], CR, XR CHEST 2V, 11/01/2018, 15:05. FINDINGS: Surgical changes and devices: None. Lungs and pleura: Lungs are clear. No pleural effusions or pneumothorax. Mediastinum: Mildly tortuous thoracic aorta. Heart size is enlarged. Bones and chest wall: No suspicious bony lesions. Overlying soft tissues appear unremarkable. IMPRESSION: No acute cardiopulmonary pathology. Dictated by: Shashi Mtz M.D. on 05/17/2024 at 12:11 Approved by: Shashi Mtz M.D. on 05/17/2024 at 12:12
[2024-05-17 11:39] LABS: INR 1.3 (0.9-1.3); Prothrombin Time 14.7 SECONDS (9.4-12.5)
[2024-05-17 11:42] LABS: PTT Partial Thromboplastin Tim 39 SECONDS (25.1-36.5)
[2024-05-17 11:44] LABS: Base Excess VBG 1.3 mmol/L (0-4); HCO3 VBG 25 mmol/L (24-28); Oxygen Saturation VBG 47 % (70-75); PO2 VBG 24 mmHg (35-45); Total CO2 VBG 24 mmol/L (24-29); pH VBG 7.45 (7.33-7.43)
[2024-05-17] MEDS: SODIUM CHLORIDE 0.9% 1,000 ML 1000 ML IV ×2 (11:46→15:11)
[2024-05-17 11:48] LABS: Add Manual Diff / Slide Review NO; Basophils Absolute Auto 100 /uL (0-100); Basophils Percent Auto 1.1 % (0-2); Eosinophils Absolute Auto 200 /uL (0-450); Eosinophils Percent Auto 1.7 % (2-4); Hematocrit 25.6 % (36-46); Lymphocytes Absolute Auto 1900 /uL (1100-4500); Lymphocytes Percent Auto 14.6 % (25-40); Mean Corpuscular HGB Conc 31.4 % (30-36); Mean Corpuscular Hemoglobin 24.9 PG (26-34); Mean Corpuscular Volume 79.4 fL (80-100); Monocytes Absolute Auto 1000 /uL (0-900); Monocytes Percent Auto 7.8 % (3-14); Neutrophils Absolute Auto 9800 /uL (1500-7000); Neutrophils Percent Auto 74.8 % (50-75); Platelet Count 513 X10^3/uL (150-400); Red Blood Cell Count 3.23 X10^6/uL (4.0-5.2); Red Cell Distribution Width 15.4 % (11.6-14.8)
[2024-05-17 11:51] LABS: Alanine Aminotransferase 16 IU/L (<35); Albumin Globulin Ratio 0.9 (1.0-2.8); Alkaline Phosphatase 56 U/L (38-126); Aspartate Aminotransferase 37 IU/L (14-36); BUN Creatinine Ratio 43.7 (6-22); Bilirubin Total 0.4 mg/dL (0.2-1.3); Blood Urea Nitrogen 38 mg/dL (7-17); Calcium 9.3 mg/dL (8.4-10.2); Carbon Dioxide 24 mmol/L (22-32); Chloride 104 mmol/L (98-107); Estimated Glomerular Filt Rate > 60 mL/min (>60); Globulin 4.5 g/dL (1.7-4.1); Glucose 111 mg/dL (80-110); Lactate (Lactic Acid) 1.6 mmol/L (0.7-2.1); Lipase 86 U/L (23-300); Sodium 137 mmol/L (137-145); Total Protein 8.5 g/dL (6.3-8.2)
[2024-05-17 11:52] LABS: HEMOLYSIS 55 (0-50); Potassium 5.6 mmol/L (3.4-5.1)
--- NOTE | 2024-05-17 12:03 | EKG_ITS ---
[address] [address] Test Date: 2024-05-17 Pat Name: Chetna Arellano Department: [facility] Room: Gender: Female [employer]: WIN : 1945 Requested By: Order Number: [id number] Reading MD: Joel Ivy Measurements Intervals [place] Rate: 78 P: 27 NE: 174 QRS: -11 QRSD: 80 T: 18 QT: 442 QTc: 503 Interpretive Statements Sinus rhythm with occasional premature ventricular complexes Cannot rule out Anterior infarct , age undetermined Electronically Signed On 05-20-2024 18:28:19 PDT by Joel Ivy
[2024-05-17 12:08] LABS: Procalcitonin 0.068 ng/mL (<0.5)
--- NOTE | 2024-05-17 12:21 | ED.GENADULT ---
HPI - General Adult General Chief complaint: Altered Mental Status Stated complaint: AMS Time Seen by Provider: 05/17/24 11:20 Source: EMS Mode of arrival: EMS History of Present Illness HPI narrative: 78-year-old woman with a history of heart failure with preserved ejection fraction, currently on Xarelto for venous thromboembolism, type 2 diabetes, COPD, hypertension, hyperlipidemia who is brought from [place] rehab facility with concerns for altered mental status. Patient was admitted at [facility] from February 13 to April 28. Initially admitted for acute metabolic encephalopathy initially felt to be secondary UTI and pneumonia. Initial blood culture showed Klebsiella, urine culture then grew Pseudomonas and patient was treated with ceftriaxone and ceftazidime. Then diagnosed with C diff started on oral vancomycin later switched to fidaxomicin. On February 14 she tested positive for influenza a and was given Tamiflu. Patient was evicted from her living facility on March 12 with social work involvement and eventually discharge to [place]. Related Data Home Medications Medication Instructions Recorded Confirmed insulin glargine 100 unit/mL 60 unit SQ HS ##0 04/30/12 09/19/20 subcutaneous solution (Lantus U-100 Insulin) insulin regular human 100 unit/mL 40 u SQ BID ##0 04/30/12 09/19/20 injection solution (Humulin R Regular U-100 Insulin) alprazolam 0.5 mg tablet (Xanax) 0.5 mg PO BID 09/14/17 09/19/20 atorvastatin 80 mg tablet 80 mg PO DAILY 09/19/20 09/19/20 cephalexin 500 mg capsule 500 mg PO TID 09/19/20 09/19/20 escitalopram oxalate 20 mg tablet 20 mg PO DAILY 09/19/20 09/19/20 furosemide 40 mg tablet 40 mg PO DAILY 09/19/20 09/19/20 hydrocodone 10 mg-acetaminophen 1 tab PO TID PRN Pain (Scale Score 09/19/20 09/19/20 325 mg tablet 1-3) lisinopril 10 mg tablet 10 mg PO DAILY 09/19/20 09/19/20 Allergies Allergy/AdvReac Type Severity Reaction Status Date / Time Iodinated Contrast Media Allergy Mild Verified 09/19/20 00:22 [Iodinated Contrast Media - IV Dye] Sulfa (Sulfonamide Allergy Mild Verified 09/19/20 00:22 Antibiotics) amoxicillin [From Augmentin] Allergy Verified 09/19/20 00:22 clavulanic acid Allergy Verified 09/19/20 00:22 [From Augmentin] Review of Systems Review of Systems ROS Unobtainable: Unobtainable due to medical condition Patient History Medical History (Updated 05/17/24 @ 16:31 by Delma Anglin MD) COPD (chronic obstructive pulmonary disease) Diastolic heart failure Brain tumor Diabetes Non-ST elevated myocardial infarction Lymphedema Surgical History (Updated 09/19/20 @ 08:23 by Joel Ivy DO) No pertinent past surgical history Social History Smoking Status: Current every day smoker alcohol intake: never Smoking Status: Current every day smoker alcohol intake frequency: holidays/special occasions only Exam Initial Vital Signs Initial Vital Signs: Vital Signs Temperature 98.7 F 05/17/24 11:18 Pulse Rate 74 05/17/24 11:18 Respiratory Rate 21 05/17/24 11:18 Blood Pressure 106/51 L 05/17/24 11:18 Pulse Oximetry 96 05/17/24 11:18 Oxygen Delivery Method Nasal Cannula 05/17/24 11:18 Oxygen Flow Rate 2 05/17/24 11:18 General: Chronically ill-appearing, acute delirium, moving all extremities HEENT: Moist mucous membranes, normal sclera with reactive pupils, Neck: No JVD, Respiratory: Lungs are clear to auscultation, no wheezing no rales no rhonchi. Full and symmetrical air movement Cardiac: Regular rate and rhythm no murmurs no bruits Abdomen: Soft, she has a midline abdominal hernia and seems to have pain behaviors with palpation to the belly in general. Skin: Warm and dry, Neurologic: Patient is moving all extremities, she has not oriented to person time and place, moans with Haley catheter placement, when speaking comments are not relevant to immediate situation Extremities: Bilateral lower extremity edema with chronic venous stasis changes Psych: Acute delirium Course Orders Ordered: ED Orders 05/17/24 11:09 Complete Blood Count AUTO DIFF Stat Comprehensive Metabolic Panel Stat Lactate (Lactic Acid) Stat Lipase Stat PTT Partial Thromboplastin Wolf Stat Procalcitonin Stat Prothrombin Time INR Stat Troponin & CK Cardiac Panel Stat 05/17/24 11:32 XR chest 1V Stat EKG-12 Lead Stat RT Consult Eval and Treat NOW 05/17/24 11:40 Venous Blood Gas Routine 05/17/24 12:42 CT abdomen pelvis wo con Stat CT head/brain wo con Stat BNP [NT-proBNP (BNP-Adult 18+)] Stat Blood Culture Stat 05/17/24 14:59 XR chest 1V Stat 05/17/24 16:02 Lactate (Lactic Acid) Stat 05/17/24 16:45 Covid-19 + FLU A/B + RSV - PCR Stat NOREPINEPHRINE BITARTRATE/D5W (Levophed) 4 mg in 250 mls @ 30.022 mls/hr IV TITRATE MAAME; Protocol Last Admin: 05/17/24 15:12 Dose: Not Given Documented By: HORTENCIA Fentanyl 1,000 mcg/ Dextrose 250 mls @ 14.01 mls/hr IV TITRATE MAAME; Protocol Last Admin: 05/17/24 15:56 Dose: Not Given Documented By: HORTENCIA Midazolam HCl 50 mg/ Dextrose 50 mls @ 1.601 mls/hr IV TITRATE PRN; Protocol PRN Reason: Sedation Ondansetron HCl (Ondansetron 4 Mg Odt) 4 mg SL NOW PRN PRN Reason: Nausea And Vomiting Discontinued Medications Albuterol/Ipratropium (Albuterol/Ipratropium 3 Ml Ampul) 3 ml INH NOW ONE Stop: 05/17/24 14:24 Last Admin: 05/17/24 14:25 Dose: 3 ml Documented By: SEBLE Albuterol/Ipratropium (Albuterol/Ipratropium 3 Ml Ampul) 3 ml INH NOW ONE Stop: 05/17/24 15:32 Last Admin: 05/17/24 15:33 Dose: 3 ml Documented By: SEBLE Albuterol/Ipratropium (Albuterol/Ipratropium 3 Ml Ampul) 3 ml INH NOW ONE Stop: 05/17/24 15:49 Last Admin: 05/17/24 15:55 Dose: 3 ml Documented By: HORTENCIA Sodium Chloride (Normal Saline 0.9%) 1,000 mls @ 1,000 mls/hr IV BOLUS ONE Stop: 05/17/24 12:31 Last Infusion: 05/17/24 12:39 Dose: Infused Documented By: Admin: 05/17/24 11:46 Dose: 1,000 mls/hr Documented By: SHINE Ceftazidime 2 gm/ Sodium (Chloride) 100 mls @ 200 mls/hr IV NOW ONE Stop: 05/17/24 12:43 Last Infusion: 05/17/24 13:36 Dose: Infused Documented By: Admin: 05/17/24 12:58 Dose: 200 mls/hr Documented By: SHINE Vancomycin HCl (Vancomycin) 1,250 mg in 250 mls @ 250 mls/hr IV NOW ONE Stop: 05/17/24 13:59 Last Infusion: 05/17/24 14:45 Dose: Infused Documented By: Admin: 05/17/24 13:40 Dose: 250 mls/hr Documented By: HORTENCIA Sodium Chloride (Normal Saline 0.9%) 1,000 mls @ 1,000 mls/hr IV BOLUS ONE Stop: 05/17/24 15:58 Last Infusion: 05/17/24 17:18 Dose: Infused Documented By: Admin: 05/17/24 15:11 Dose: 1,000 mls/hr Documented By: HORTENCIA Ondansetron HCl (Ondansetron 4 Mg/2 Ml Inj) 4 mg IV NOW PRN PRN Reason: Nausea And Vomiting Last Admin: 05/17/24 13:49 Dose: 4 mg Documented By: HORTENCIA Vancomycin HCl (Vancomycin Per Pharmacy) 1 request MISC NOW ONE Stop: 05/17/24 12:44 Last Admin: 05/17/24 13:37 Dose: Not Given Documented By: HORTENCIA Vancomycin HCl (Vancomycin 125 Mg Capsule) 125 mg PO NOW ONE Stop: 05/17/24 12:43 Last Admin: 05/17/24 13:03 Dose: Not Given Documented By: SHINE Vital Signs Vital signs: Vital Signs - 8 hr 05/17/24 11:18 05/17/24 13:00 05/17/24 13:01 Temperature 98.7 F Pulse Rate 74 77 Respiratory Rate 21 Blood Pressure 106/51 L 133/57 L Pulse Oximetry 96 91 Oxygen Delivery Method Nasal Cannula Oxygen Flow Rate 2 05/17/24 13:01 05/17/24 13:30 05/17/24 13:31 Temperature Pulse Rate 80 78 Respiratory Rate 20 23 Blood Pressure 107/50 L Pulse Oximetry 90 L 92 Oxygen Delivery Method Oxygen Flow Rate 05/17/24 13:31 05/17/24 13:36 05/17/24 13:36 Temperature Pulse Rate 77 78 Respiratory Rate 19 Blood Pressure 106/54 L Pulse Oximetry 95 95 Oxygen Delivery Method Nasal Cannula Oxygen Flow Rate 1 05/17/24 14:00 05/17/24 14:00 05/17/24 14:25 Temperature Pulse Rate 82 88 Respiratory Rate 23 18 Blood Pressure 115/52 L Pulse Oximetry 94 92 Oxygen Delivery Method Oximask Oxygen Flow Rate 9 05/17/24 14:30 05/17/24 14:43 05/17/24 14:43 Temperature Pulse Rate 86 89 Respiratory Rate 21 24 Blood Pressure 99/64 Pulse Oximetry 89 L 91 Oxygen Delivery Method Oximask Oxygen Flow Rate 9 05/17/24 14:51 05/17/24 14:51 05/17/24 14:52 Temperature Pulse Rate 85 85 Respiratory Rate 30 H 22 Blood Pressure 97/53 L Pulse Oximetry 89 L 88 L Oxygen Delivery Method Oxygen Flow Rate 05/17/24 14:52 05/17/24 14:59 05/17/24 14:59 Temperature Pulse Rate 83 Respiratory Rate 22 Blood Pressure 97/53 L 97/53 L Pulse Oximetry 95 Oxygen Delivery Method Oxygen Flow Rate 05/17/24 14:59 05/17/24 15:00 05/17/24 15:04 Temperature Pulse Rate 83 Respiratory Rate 22 Blood Pressure 97/53 L 104/53 L Pulse Oximetry 95 Oxygen Delivery Method Oxygen Flow Rate 05/17/24 15:04 05/17/24 15:06 05/17/24 15:06 Temperature Pulse Rate 81 83 Respiratory Rate 18 22 Blood Pressure 94/50 L Pulse Oximetry 95 96 Oxygen Delivery Method Oxygen Flow Rate 05/17/24 15:10 05/17/24 15:10 05/17/24 15:15 Temperature Pulse Rate 83 Respiratory Rate 23 Blood Pressure 102/52 L 112/51 L Pulse Oximetry 99 Oxygen Delivery Method Oxygen Flow Rate 05/17/24 15:15 05/17/24 15:20 05/17/24 15:20 Temperature Pulse Rate 80 80 Respiratory Rate 24 23 Blood Pressure 99/49 L Pulse Oximetry 98 99 Oxygen Delivery Method Non -Rebreather Oxygen Flow Rate 15 05/17/24 15:25 05/17/24 15:25 05/17/24 15:30 Temperature Pulse Rate 80 Respiratory Rate 20 Blood Pressure 109/53 L 108/51 L Pulse Oximetry 99 Oxygen Delivery Method Oxygen Flow Rate 05/17/24 15:30 05/17/24 15:33 05/17/24 15:41 Temperature Pulse Rate 80 87 Respiratory Rate 25 H 16 Blood Pressure 111/52 L Pulse Oximetry 93 91 Oxygen Delivery Method Oximask Oximask Oxygen Flow Rate 9 5 05/17/24 15:41 05/17/24 15:45 05/17/24 15:45 Temperature Pulse Rate 81 82 Respiratory Rate 27 H 25 H Blood Pressure 121/56 L Pulse Oximetry 94 93 Oxygen Delivery Method Simple Mask Oxygen Flow Rate 6 05/17/24 15:51 05/17/24 15:51 05/17/24 15:56 Temperature Pulse Rate 80 Respiratory Rate 28 H Blood Pressure 108/55 L 105/52 L Pulse Oximetry 94 Oxygen Delivery Method Oxygen Flow Rate 05/17/24 15:56 05/17/24 16:00 05/17/24 16:00 Temperature Pulse Rate 81 81 Respiratory Rate 21 22 Blood Pressure 121/51 L Pulse Oximetry 96 95 Oxygen Delivery Method Oxygen Flow Rate 05/17/24 16:05 05/17/24 16:05 05/17/24 16:10 Temperature Pulse Rate 81 82 Respiratory Rate 33 H 20 Blood Pressure 101/52 L Pulse Oximetry 93 83 L Oxygen Delivery Method Oxygen Flow Rate 05/17/24 16:10 05/17/24 16:15 05/17/24 16:15 Temperature Pulse Rate 81 Respiratory Rate 23 Blood Pressure 102/59 L 110/53 L Pulse Oximetry 96 Oxygen Delivery Method Simple Mask Oxygen Flow Rate 05/17/24 16:30 05/17/24 16:30 05/17/24 16:45 Temperature Pulse Rate 82 Respiratory Rate 21 Blood Pressure 114/56 L 110/53 L Pulse Oximetry 96 Oxygen Delivery Method Oxygen Flow Rate 05/17/24 16:45 05/17/24 17:00 05/17/24 17:00 Temperature Pulse Rate 84 81 Respiratory Rate 21 16 21 Blood Pressure 102/49 L Pulse Oximetry 97 91 Oxygen Delivery Method Room Air Oxygen Flow Rate 05/17/24 17:15 05/17/24 17:15 05/17/24 17:30 Temperature Pulse Rate 80 84 Respiratory Rate 22 22 Blood Pressure 93/45 L Pulse Oximetry 94 96 Oxygen Delivery Method Simple Mask Oxygen Flow Rate 5 05/17/24 17:31 05/17/24 17:31 Temperature Pulse Rate 84 Respiratory Rate 24 Blood Pressure 110/58 L Pulse Oximetry 96 Oxygen Delivery Method Oxygen Flow Rate Medical Decision Making Lab Data 05/17/24 11:09 05/17/24 11:09 Labs: Lab Results 05/17/24 05/17/24 05/17/24 Range/Units 11:09 11:40 12:42 WBC 13.0 H (4.5-11.0) X10^3/uL RBC 3.23 L (4.0-5.2) X10^6/uL Hgb 8.0 L (12.0-16.0) g/dL Hct 25.6 L (36-46) % MCV 79.4 L (80-100) fL MCH 24.9 L (26-34) PG MCHC 31.4 (30-36) % RDW 15.4 H (11.6-14.8) % Plt Count 513 H (150-400) X10^3/uL Neut % (Auto) 74.8 (50-75) % Lymph % (Auto) 14.6 L (25-40) % [place] % (Auto) 7.8 (3-14) % Eos % (Auto) 1.7 L (2-4) % Baso % (Auto) 1.1 (0-2) % Neut # (Auto) 9800 H (7308-4422) /uL Lymph # (Auto) 1900 (4833-2005) /uL [place] # (Auto) 1000 H (0-900) /uL Eos # (Auto) 200 (0-450) /uL Baso # (Auto) 100 (0-100) /uL PT 14.7 H (9.4-12.5) SECONDS INR 1.3 (0.9-1.3) APTT 39 H (25.1-36.5) SECONDS ABG Sample Site ABG pH (7.35-7.45) ABG pCO2 (35-45) mmHg ABG pO2 (80-100) mmHg ABG HCO3 (23-27) mmol/L ABG Total CO2 (23-27) mmol/L ABG O2 Saturation (95-100) % ABG Base Excess (-2-3) mmol/L Raif Test VBG pH 7.45 H (7.33-7.43) VBG pCO2 36.0 L (45-50) mmHg VBG pO2 24 L (35-45) mmHg VBG HCO3 25 (24-28) mmol/L VBG Total CO2 24 (24-29) mmol/L VBG O2 Saturation 47 L (70-75) % VBG Base Excess 1.3 (0-4) mmol/L O2 Delivery Device Sodium 137 (137-145) mmol/L Potassium 5.6 H (3.4-5.1) mmol/L Chloride 104 (98-107) mmol/L Carbon Dioxide 24 (22-32) mmol/L BUN 38 H (7-17) mg/dL Creatinine 0.87 (0.52-1.04) mg/dL Estimated GFR > 60 (>60) mL/min BUN/Creatinine Ratio 43.7 H (6-22) Glucose 111 H (80-110) mg/dL Lactate 1.6 (0.7-2.1) mmol/L Calcium 9.3 (8.4-10.2) mg/dL Total Bilirubin 0.4 (0.2-1.3) mg/dL AST 37 H (14-36) IU/L ALT 16 (<35) IU/L Alkaline Phosphatase 56 (38-126) U/L Total Creatine Kinase 44 (30-135) U/L Troponin I < 0.012 (0.01-0.034) ng/mL NT-Pro-B Natriuret Pep 622 H (<450) pg/mL Total Protein 8.5 H (6.3-8.2) g/dL Albumin 4.0 (3.5-5.0) g/dL Globulin 4.5 H (1.7-4.1) g/dL Albumin/Globulin Ratio 0.9 L (1.0-2.8) Lipase 86 (23-300) U/L Procalcitonin 0.068 (<0.5) ng/mL SARS-CoV-2 (PCR) (Negative) Influenza A (RT-PCR) (NEGATIVE) Influenza B (RT-PCR) (NEGATIVE) RSV (PCR) (Negative) 05/17/24 05/17/24 05/17/24 Range/Units 15:36 16:02 16:45 WBC (4.5-11.0) X10^3/uL RBC (4.0-5.2) X10^6/uL Hgb (12.0-16.0) g/dL Hct (36-46) % MCV (80-100) fL MCH (26-34) PG MCHC (30-36) % RDW (11.6-14.8) % Plt Count (150-400) X10^3/uL Neut % (Auto) (50-75) % Lymph % (Auto) (25-40) % [place] % (Auto) (3-14) % Eos % (Auto) (2-4) % Baso % (Auto) (0-2) % Neut # (Auto) (4593-0982) /uL Lymph # (Auto) (4582-4573) /uL [place] # (Auto) (0-900) /uL Eos # (Auto) (0-450) /uL Baso # (Auto) (0-100) /uL PT (9.4-12.5) SECONDS INR (0.9-1.3) APTT (25.1-36.5) SECONDS ABG Sample Site Left radial ABG pH 7.37 (7.35-7.45) ABG pCO2 43.8 (35-45) mmHg ABG pO2 83 (80-100) mmHg ABG HCO3 26 (23-27) mmol/L ABG Total CO2 25 (23-27) mmol/L ABG O2 Saturation 96 (95-100) % ABG Base Excess 0.2 (-2-3) mmol/L Rafi Test Positive VBG pH (7.33-7.43) VBG pCO2 (45-50) mmHg VBG pO2 (35-45) mmHg VBG HCO3 (24-28) mmol/L VBG Total CO2 (24-29) mmol/L VBG O2 Saturation (70-75) % VBG Base Excess (0-4) mmol/L O2 Delivery Device oximask Sodium (137-145) mmol/L Potassium (3.4-5.1) mmol/L Chloride (98-107) mmol/L Carbon Dioxide (22-32) mmol/L BUN (7-17) mg/dL Creatinine (0.52-1.04) mg/dL Estimated GFR (>60) mL/min BUN/Creatinine Ratio (6-22) Glucose (80-110) mg/dL Lactate 0.6 L (0.7-2.1) mmol/L Calcium (8.4-10.2) mg/dL Total Bilirubin (0.2-1.3) mg/dL AST (14-36) IU/L ALT (<35) IU/L Alkaline Phosphatase (38-126) U/L Total Creatine Kinase (30-135) U/L Troponin I (0.01-0.034) ng/mL NT-Pro-B Natriuret Pep (<450) pg/mL Total Protein (6.3-8.2) g/dL Albumin (3.5-5.0) g/dL Globulin (1.7-4.1) g/dL Albumin/Globulin Ratio (1.0-2.8) Lipase (23-300) U/L Procalcitonin (<0.5) ng/mL SARS-CoV-2 (PCR) Negative (Negative) Influenza A (RT-PCR) Flu a negative (NEGATIVE) Influenza B (RT-PCR) Flu b negative (NEGATIVE) RSV (PCR) Negative (Negative) Point of Care Testing Glucose POC 125 Urine Dip Bedside Urine Glucose Negative Bedside Urine Bilirubin - Negative Bedside Urine Ketone - Negative Urine Specific Alba 1.010 Bedside Urine Occult Blood - Negative Bedside Urine pH 7.0 Bedside Urine Protein - Negative Bedside Urine Urobilinogen - Negative Bedside Urine Nitrite - Negative Bedside Urine Leukocytes + 70 Esterase Point of care testing: Point of Care Testing Glucose POC 125 Urine Dip Bedside Urine Glucose Negative Bedside Urine Bilirubin - Negative Bedside Urine Ketone - Negative Urine Specific Alba 1.010 Bedside Urine Occult Blood - Negative Bedside Urine pH 7.0 Bedside Urine Protein - Negative Bedside Urine Urobilinogen - Negative Bedside Urine Nitrite - Negative Bedside Urine Leukocytes + 70 Esterase MDM Narrative Medical decision making narrative: CC: Altered mental status Complicating co-morbidities: Recent extended hospital stay with recurrent UTI, pneumonia, influence C diff and difficulty with housing Data collected from: patient Social determinants of health that may influence the patients condition: Currently at [facility] Medical records reviewed: Please see HPI for summary of recent hospitalization at [facility] GI panel done on April 26 shows resolution of Clostridium difficile Microbiology with recent hospital stay showed UTI with Klebsiella, eventual aspiration pneumonia with Pseudomonas, completed IV course with ceftazidime and Flagyl. Differential considered: Sepsis, pneumonia, urinary tract infection, stroke, metabolic encephalopathy Exam documented above, pertinent findings include: Patient will respond to painful stimuli with remarks that are not immediately relevant, she is able to speak in full sentences. She is warm to the touch, lungs are clear, Haley catheter is placed with urine foul-smelling. Belly is somewhat distended unclear if there is tenderness or not Lab Test results independently reviewed as above. Pertinent findings: CBC shows a leukocytosis at 13, microcytic anemia at 8 and 25.6 which is similar to recent hospitalized numbers. Thrombocytosis with platelets at 513 PT and PTT are minimally elevated Venous blood gas has a pH of 7.45 CO2 of 36 Chemistries show a potassium of 5.6. Creatinine is appropriate at 0.87. AST minimally elevated at 37. Procalcitonin is not elevated Urine dip shows white cells occasional calcium oxalate crystals, bacteria occasional yeast and will be cultured. This was a catheterized sample. Lactic acid is not elevated Independently reviewed EKG: Sinus rhythm with PVCs. No acute ischemic change Imaging studies independently reviewed: Chest x-ray does not suggest acute congestive heart failure or obvious infiltrative pneumonia CT scan of the abdomen and pelvis does not show significant new pathology or indication of infection CT scan of the head is unremarkable Consultations: DNR discussion with son on arrival, patient is not cognitively aware enough to make decisions. Son does not remember talking about this with her extend it is K at [facility]. I can not find DNR indications from [facility]. Her nursing facility to does not have a POLST form. 3:14pm patient is clearly getting worse, needs to be intubated. Again discussed with her son who very clearly wanted intubation full code all measures necessary. Treatments: Haley catheter placement Initial IV fluid given with blood pressure responding nicely Re-evaluations: Called to bedside to re-evaluate the patient. Abrupt drop in saturations 3 L nasal cannula started and then increased to non-rebreather. The nurse bedside mentions that she was lying flat seemed to almost aspirate on her own secretions. She is sitting up straight currently being deep suctioned by respiratory therapist. On re-evaluation her lungs do not sound any different and I appreciate no wheezing or rhonchi. There was no accessory muscle use or obvious respiratory distress 330pm again called to evaluate. Saturations decreasing, blood pressure decreasing, additional fluid given. Patient moved to consider intubation. Again phone call with her son who clearly indicates full code and all measures. With a nebulizer and additional deep suctioning she is doing significantly better and intubation is not going to be required at this point. She is doing well with 4 L nasal cannula. Discussion: 78-year-old woman with recent extended hospitalization for UTI, pneumonia, influenza, C diff, secondary pneumonia, housing difficulties with altered mental status for the past 24 hours. Slight leukocytosis, no diarrhea(negative test for C diff on May 07), Haley catheter is placed, CT scan of the head does not suggest alternate explanation for her altered mental status. Minimally elevated potassium at 5.6, no acute renal failure. She has been given fluids, ceftazidime, vancomycin, discussed adding oral vancomycin with the pharmacist given her recent C diff and decided against at this time. Patient will need hospital admission, no sign of sepsis at this time we will continue to treat urinary tract infection and presumed metabolic encephalopathy secondary to UTI. Critical Care Time Critical Care Time Critical Care Time: Yes Total Critical Care Time: 37 Attestation: Critical care time is separate from other billable procedures. There is a high probability of a significant, sudden or life-threatening deterioration that requires my full and direct attention, intervention and personal management. This critical care time includes consultation with family and other consulting doctors, review of records, and interpretation of data from labs, EKGs and imaging as well as managements of acute respiratory distress and acutely altered mental status Discharge Plan Departure Patient Disposition: Admitted As Inpatient Clinical Impression: Acute UTI, Acute metabolic encephalopathy, Acute respiratory distress Admit Date/Time: 05/17/24 17:47
--- NOTE | 2024-05-17 12:42 | DI.CT.S_ITS ---
PROCEDURE: CT HEAD/BRAIN WO CON INDICATIONS: altered mental status TECHNIQUE: Noncontrast 4.5 mm thick angled axial sections acquired from the foramen magnum to the vertex, with coronal and sagittal reformats. For radiation dose reduction, the following was used: automated exposure control, adjustment of mA and/or kV according to patient size. COMPARISON: [facility], CT, CT HEAD/BRAIN WO CON, 09/15/2018, 23:53. FINDINGS: Image quality: Diagnostic. CSF spaces: Basal cisterns are patent. No extra-axial fluid collections. The ventricles are symmetric in size and shape. Brain: No intracranial bleeds or masses. There is prominent cerebral volume loss for age, with resultant ventricular and sulcal prominence. There are moderate to severe periventricular and deep white matter chronic small vessel ischemic changes. There is intracranial internal carotid artery atherosclerosis. Skull and face: Calvarium and visualized facial bones appear intact, without suspicious lesions. Sinuses: Visualized sinuses and mastoids are clear. IMPRESSION: Prominent diffuse volume loss and moderate to severe small vessel ischemic change. No acute intracranial process identified. Acute Dictated by: Vazquez Castelan M.D. on 05/17/2024 at 13:44 Approved by: Vazquez Castelan M.D. on 05/17/2024 at 13:45
--- NOTE | 2024-05-17 12:42 | DI.CT.S_ITS ---
PROCEDURE: CT ABDOMEN PELVIS WO CON INDICATIONS: abdominal pain TECHNIQUE: Axial sections were acquired from the lung bases to the pubic symphysis. Coronal and sagittal reformats were performed. For radiation dose reduction, the following was used: automated exposure control, adjustment of mA and/or kV according to patient size. COMPARISON: [facility], CT, CT CHEST ABDOMEN PELVIS WITHOUT CONTRAST, 01/03/2024, 21:15. FINDINGS: Image quality: Diagnostic. Lower Chest: Stable nodular density, right middle lobe, current image 7 of series 2. Cardiomegaly. Severe coronary artery calcifications. Lung bases are clear. URINARY: Right Kidney: No renal stone present. Interval removal of double-J ureteral stent. Right Ureter: No hydroureter. Left Kidney: Punctate 3 mm nonobstructing left lower pole renal stone. No hydronephrosis. Left Ureter: No hydroureter. Bladder: A Haley catheter decompresses the bladder. No stones. ABDOMEN: Liver: No contour-deforming solid mass. Gallbladder: Numerous calcified gallstones. No gallbladder wall thickening or inflammatory change adjacent to the gallbladder. Biliary ducts: No biliary dilation. Pancreas: No ductal dilation. Spleen: Size is within normal limits. Adrenal Glands: No adrenal nodules. Stomach and Bowel: Normal colonic caliber, without significant wall thickening. A in Peritoneum: No abnormal intraperitoneal fluid. No free air. Ventral Wall: Fat containing periumbilical hernia. Abdominal Nodes: No enlarged retroperitoneal or mesenteric lymph nodes. Vessels: Aorta and inferior vena cava are normal in size. PELVIS: Pelvic Organs: Unremarkable. Pelvic Nodes: Unremarkable. Miscellaneous: No inguinal hernias are seen. Bones: Unremarkable. IMPRESSION: 1. 3 mm nonobstructing left renal stone. 2. No hydronephrosis or hydroureter. 3. Cholelithiasis. 4. Severe coronary artery calcifications, cardiomegaly. 5. No acute abdominal process identified. Dictated by: Vazquez Castelan M.D. on 05/17/2024 at 13:36 Approved by: Vazquez Castelan M.D. on 05/17/2024 at 13:42
[2024-05-17] MEDS: VANCOMYCIN 1,250 MG/250 ML PIGGYBACK 250 MG IV (13:40)
[2024-05-17] MEDS: ONDANSETRON 4 MG/2 ML INJ IV (13:49)
--- NOTE | 2024-05-17 13:58 | PC.NURSE ---
Pt was laying flat and sounded as though she needed to cough or vomit. Gurgling sounds coming from patient. Sat patient upright. Gave emesis bag. Suction on standby. Pt begins to make gurgling sounds and attempt to cough/vomit. Patient oxygen drops to 79% on 1L NC. Increased to 3L NC. Suctioned with some clear secretions. Pt remains at 79-80%. Placed on 15L via non rebreather and oxgen climbs to 90%. RT called. Provider Linnette made aware. Both Linnette and RT Demarcus at bedside. Deep suction performed twice by RT Demarcus with secretions removed each time. Pt remains alert. Anterior LS clear. Pt is placed on 8L via oxymask by RT and is at 92%. Pt remains sitting upright. Call light within reach and encouraged to use for needs.
[2024-05-17] MEDS: ALBUTEROL/IPRATROPIUM 3 ML AMPUL INH ×5 (14:25→22:52)
--- NOTE | 2024-05-17 15:45 | PC.NURSE ---
1455: Pt is obtuned, snoring, and is on 13L via oximask and saturations in low 80s. Pt blood pressure in the high 90s systolic. Provider Linnette made aware of patient presentation. Checks on patient. Pt placed on 15L via non-rebreather. Told to prepare for RSI and to start her on a norepi drip verbal order. Pt moved to room 2. 1520: Pt becomes more alert. She is alert to person, and situation. Follows commands. Talking to this RN. Pt is 100% on 15L via non-rebreather. EVER Gee and EVER Morel present at bedside to assist with RSI. Upon arrival and seeing patient plan for intubation is discussed with provider Linnette and decided to wait at this time. Duoneb given. Pt LS rhonchi on RIGHT throughout anterior. Clear on left anteriorly. ABG taken by RT. Pt remains alert. This RN remains at bedside 1:1 at this time.
[2024-05-17 15:46] LABS: Allen Test for ABG Passed? Positive; Base Excess ABG 0.2 mmol/L (-2-3); Blood Gas Collection Site Left Radial; Delivery System oximask; HCO3 ABG 26 mmol/L (23-27); Oxygen Saturation ABG 96 % (95-100); PCO2 ABG 43.8 mmHg (35-45); PO2 ABG 83 mmHg (80-100); TCO2 ABG 25 mmol/L (23-27); pH ABG 7.37 (7.35-7.45)
[2024-05-17 15:53] LABS: NT-proBNP (BNP-Adult 18+) 622 pg/mL (<450)
--- NOTE | 2024-05-17 16:12 | PC.NURSE ---
Pt son at bedside. Reports some hallucinating and dementia at baseline sometimes in the morning. Pt currently sitting upright and talking to son at this time.
[2024-05-17 16:31] LABS: Lactate (Lactic Acid) 0.6 mmol/L (0.7-2.1)
--- NOTE | 2024-05-17 16:51 | PC.NURSE ---
Son, Taran, in room with pt. Son wants pt to sign POA paperwork.
[2024-05-17 16:52] LABS: Creatine Kinase 44 U/L (30-135)
[2024-05-17 17:05] LABS: Troponin I < 0.012 ng/mL (0.01-0.034)
[2024-05-17 17:31] LABS: Influenza A - CEPHEID Flu A NEGATIVE (NEGATIVE); Influenza B - CEPHEID Flu B NEGATIVE (NEGATIVE); Respiratory Syncytial Virus Negative (Negative)
[2024-05-17 17:35] LABS: COVID-19 CEPHEID 4-PLEX PCR Negative (Negative)
[2024-05-17 17:54] LABS: Urine Volume 10mL (spun)
[2024-05-17 17:56] LABS: Bacteria Urine Moderate (10-30); Culture Indicated Urine Specimen Cultured; RBC Urine 0-1/HPF (0-5/HPF); Squamous Epithelial Cell Urine None Seen (0-5/HPF); WBC Urine 10-30/HPF (0-5/HPF)
--- NOTE | 2024-05-17 18:03 | P.HP_ITS ---
History of Present Illness History of Present Illness Date Patient Seen: 05/17/24 Chief complaint: AMS Narrative: This is a 78-year-old female with a past medical history of HFpEF, VTE on Xarelto, DM2, obesity, COPD, HTN, HLD, tobacco use, PTSD who was admitted in February of 2024 to [facility] with altered mentation and treated for a UTI, pneumonia, influenza, and C diff infection. Patient was discharged from the hospital to [facility] where she has resided since. The patient presented to the emergency room today with lethargy per the emergency room provider. The patient is to encephalopathic at the moment to provide a reliable history but she is more alert now. She denies recent fever, chest pain, cough, dyspnea on exertion, abdominal pain. She felt nauseous earlier today she states but no other symptoms. [facility] Medical History (Updated 05/17/24 @ 16:31 by Delma Anglin MD) COPD (chronic obstructive pulmonary disease) Diastolic heart failure Brain tumor Diabetes Non-ST elevated myocardial infarction Lymphedema Surgical History (Updated 09/19/20 @ 08:23 by Joel Ivy DO) No pertinent past surgical history Social History Smoking Status: Current every day smoker alcohol intake: never Meds Home Medications and Allergies Home Medications Medication Instructions Recorded Confirmed Type insulin glargine 100 unit/mL 60 unit SQ HS ##0 04/30/12 09/19/20 History subcutaneous solution (Lantus U-100 Insulin) insulin regular human 100 unit/mL 40 u SQ BID ##0 04/30/12 09/19/20 History injection solution (Humulin R Regular U-100 Insulin) alprazolam 0.5 mg tablet (Xanax) 0.5 mg PO BID 09/14/17 09/19/20 History atorvastatin 80 mg tablet 40 mg PO DAILY 09/19/20 05/17/24 History cephalexin 500 mg capsule 500 mg PO TID 09/19/20 09/19/20 History furosemide 40 mg tablet 40 mg PO DAILY 09/19/20 05/17/24 History hydrocodone 10 mg-acetaminophen 1 tab PO TID PRN Pain (Scale Score 09/19/20 05/17/24 History 325 mg tablet 1-3) albuterol sulfate 90 mcg/actuation 90 mcg inhalation Q4H PRN Wheezing 05/17/24 05/17/24 History aerosol inhaler buspirone 5 mg tablet 5 mg PO BID 05/17/24 05/17/24 History carvedilol 12.5 mg tablet 12.5 mg PO BID 05/17/24 05/17/24 History escitalopram oxalate 20 mg tablet 20 mg PO DAILY 05/17/24 05/17/24 History fluticasone propion-salmeterol inhalation BID 05/17/24 History losartan 25 mg tablet 25 mg PO DAILY 05/17/24 05/17/24 History metformin 500 mg tablet 500 mg PO DAILY 05/17/24 05/17/24 History potassium chloride 20 mEq 20 meq PO DAILY 05/17/24 05/17/24 History tablet,extended release(part/cryst) rivaroxaban 10 mg tablet (Xarelto) 10 mg PO DAILY 05/17/24 05/17/24 History spironolactone 25 mg tablet 12.5 mg PO DAILY 05/17/24 05/17/24 History Allergies Allergy/AdvReac Type Severity Reaction Status Date / Time Iodinated Contrast Media Allergy Mild Verified 09/19/20 00:22 [Iodinated Contrast Media - IV Dye] Sulfa (Sulfonamide Allergy Mild Verified 09/19/20 00:22 Antibiotics) amoxicillin [From Augmentin] Allergy Verified 09/19/20 00:22 clavulanic acid Allergy Verified 09/19/20 00:22 [From Augmentin] Review of Systems Review of Systems Narrative: All other systems reviewed with the patient and are negative unless otherwise stated. Exam Vital Signs (past 8 hours): - 05/17/24 11:18 05/17/24 13:00 05/17/24 13:01 Temperature 98.7 F Pulse Rate 74 77 Respiratory Rate 21 Blood Pressure 106/51 L 133/57 L Pulse Oximetry 96 91 Oxygen Delivery Method Nasal Cannula Oxygen Flow Rate 2 05/17/24 13:01 05/17/24 13:30 05/17/24 13:31 Temperature Pulse Rate 80 78 Respiratory Rate 20 23 Blood Pressure 107/50 L Pulse Oximetry 90 L 92 Oxygen Delivery Method Oxygen Flow Rate 05/17/24 13:31 05/17/24 13:36 05/17/24 13:36 Temperature Pulse Rate 77 78 Respiratory Rate 19 Blood Pressure 106/54 L Pulse Oximetry 95 95 Oxygen Delivery Method Nasal Cannula Oxygen Flow Rate 1 05/17/24 14:00 05/17/24 14:00 05/17/24 14:25 Temperature Pulse Rate 82 88 Respiratory Rate 23 18 Blood Pressure 115/52 L Pulse Oximetry 94 92 Oxygen Delivery Method Oximask Oxygen Flow Rate 9 05/17/24 14:30 05/17/24 14:43 05/17/24 14:43 Temperature Pulse Rate 86 89 Respiratory Rate 21 24 Blood Pressure 99/64 Pulse Oximetry 89 L 91 Oxygen Delivery Method Oximask Oxygen Flow Rate 9 05/17/24 14:51 05/17/24 14:51 05/17/24 14:52 Temperature Pulse Rate 85 85 Respiratory Rate 30 H 22 Blood Pressure 97/53 L Pulse Oximetry 89 L 88 L Oxygen Delivery Method Oxygen Flow Rate 05/17/24 14:52 05/17/24 14:59 05/17/24 14:59 Temperature Pulse Rate 83 Respiratory Rate 22 Blood Pressure 97/53 L 97/53 L Pulse Oximetry 95 Oxygen Delivery Method Oxygen Flow Rate 05/17/24 14:59 05/17/24 15:00 05/17/24 15:04 Temperature Pulse Rate 83 Respiratory Rate 22 Blood Pressure 97/53 L 104/53 L Pulse Oximetry 95 Oxygen Delivery Method Oxygen Flow Rate 05/17/24 15:04 05/17/24 15:06 05/17/24 15:06 Temperature Pulse Rate 81 83 Respiratory Rate 18 22 Blood Pressure 94/50 L Pulse Oximetry 95 96 Oxygen Delivery Method Oxygen Flow Rate 05/17/24 15:10 05/17/24 15:10 05/17/24 15:15 Temperature Pulse Rate 83 Respiratory Rate 23 Blood Pressure 102/52 L 112/51 L Pulse Oximetry 99 Oxygen Delivery Method Oxygen Flow Rate 05/17/24 15:15 05/17/24 15:20 05/17/24 15:20 Temperature Pulse Rate 80 80 Respiratory Rate 24 23 Blood Pressure 99/49 L Pulse Oximetry 98 99 Oxygen Delivery Method Non -Rebreather Oxygen Flow Rate 15 05/17/24 15:25 05/17/24 15:25 05/17/24 15:30 Temperature Pulse Rate 80 Respiratory Rate 20 Blood Pressure 109/53 L 108/51 L Pulse Oximetry 99 Oxygen Delivery Method Oxygen Flow Rate 05/17/24 15:30 05/17/24 15:33 05/17/24 15:41 Temperature Pulse Rate 80 87 Respiratory Rate 25 H 16 Blood Pressure 111/52 L Pulse Oximetry 93 91 Oxygen Delivery Method Oximask Oximask Oxygen Flow Rate 9 5 05/17/24 15:41 05/17/24 15:45 05/17/24 15:45 Temperature Pulse Rate 81 82 Respiratory Rate 27 H 25 H Blood Pressure 121/56 L Pulse Oximetry 94 93 Oxygen Delivery Method Simple Mask Oxygen Flow Rate 6 05/17/24 15:51 05/17/24 15:51 05/17/24 15:56 Temperature Pulse Rate 80 Respiratory Rate 28 H Blood Pressure 108/55 L 105/52 L Pulse Oximetry 94 Oxygen Delivery Method Oxygen Flow Rate 05/17/24 15:56 05/17/24 16:00 05/17/24 16:00 Temperature Pulse Rate 81 81 Respiratory Rate 21 22 Blood Pressure 121/51 L Pulse Oximetry 96 95 Oxygen Delivery Method Oxygen Flow Rate 05/17/24 16:05 05/17/24 16:05 05/17/24 16:10 Temperature Pulse Rate 81 82 Respiratory Rate 33 H 20 Blood Pressure 101/52 L Pulse Oximetry 93 83 L Oxygen Delivery Method Oxygen Flow Rate 05/17/24 16:10 05/17/24 16:15 05/17/24 16:15 Temperature Pulse Rate 81 Respiratory Rate 23 Blood Pressure 102/59 L 110/53 L Pulse Oximetry 96 Oxygen Delivery Method Simple Mask Oxygen Flow Rate 05/17/24 16:30 05/17/24 16:30 05/17/24 16:45 Temperature Pulse Rate 82 Respiratory Rate 21 Blood Pressure 114/56 L 110/53 L Pulse Oximetry 96 Oxygen Delivery Method Oxygen Flow Rate 05/17/24 16:45 05/17/24 17:00 05/17/24 17:00 Temperature Pulse Rate 84 81 Respiratory Rate 21 16 21 Blood Pressure 102/49 L Pulse Oximetry 97 91 Oxygen Delivery Method Room Air Oxygen Flow Rate 05/17/24 17:15 05/17/24 17:15 05/17/24 17:30 Temperature Pulse Rate 80 84 Respiratory Rate 22 22 Blood Pressure 93/45 L Pulse Oximetry 94 96 Oxygen Delivery Method Simple Mask Oxygen Flow Rate 5 05/17/24 17:31 05/17/24 17:31 Temperature Pulse Rate 84 Respiratory Rate 24 Blood Pressure 110/58 L Pulse Oximetry 96 Oxygen Delivery Method Oxygen Flow Rate Oxygen Delivery Method Simple Mask Oxygen Flow Rate 5 Narrative Exam Narrative: General:? Patient is well developed and well nourished, in no distress at this time. Lethargic and confused. HEENT:? Normocephalic, atraumatic, extraocular muscles intact, oral pharynx is clear and mucous membranes are moist. Neck: supple and symmetric, trachea is midline, no cervical adenopathy. Chest:? Normal AP diameter and contour without kyphoscoliosis, no tachypnea, equal chest rise bilaterally. Lungs:? CTA b/l no wheezing rhonchi or rales. Cardio:?RRR no m/r/g. Abdomen: S NT ND. Musculoskeletal:? Muscle strength and tone are equal within normal limits, no deformity. Extremities: bilateral LE edema with skin thickening b/l LE Skin:? Pale,? Warm to touch,dry and intact without rashes, ulcerations or petechiae.? Neuro:? Alert and orientated to person, location. Not time. Objective ECG Impression: Normal sinus rhythm with occasional PVC, no evidence for acute ischemia Labs 05/17/24 11:09 05/17/24 11:09 Labs: Laboratory Results - last 24 hr 05/17/24 05/17/24 05/17/24 11:09 11:40 12:36 WBC 13.0 H RBC 3.23 L Hgb 8.0 L Hct 25.6 L MCV 79.4 L MCH 24.9 L MCHC 31.4 RDW 15.4 H Plt Count 513 H Neut % (Auto) 74.8 Lymph % (Auto) 14.6 L [place] % (Auto) 7.8 Eos % (Auto) 1.7 L Baso % (Auto) 1.1 Neut # (Auto) 9800 H Lymph # (Auto) 1900 [place] # (Auto) 1000 H Eos # (Auto) 200 Baso # (Auto) 100 PT 14.7 H INR 1.3 APTT 39 H ABG Sample Site ABG pH ABG pCO2 ABG pO2 ABG HCO3 ABG Total CO2 ABG O2 Saturation ABG Base Excess Rafi Test VBG pH 7.45 H VBG pCO2 36.0 L VBG pO2 24 L VBG HCO3 25 VBG Total CO2 24 VBG O2 Saturation 47 L VBG Base Excess 1.3 O2 Delivery Device Sodium 137 Potassium 5.6 H Chloride 104 Carbon Dioxide 24 BUN 38 H Creatinine 0.87 Estimated GFR > 60 BUN/Creatinine Ratio 43.7 H Glucose 111 H Lactate 1.6 Calcium 9.3 Total Bilirubin 0.4 AST 37 H ALT 16 Alkaline Phosphatase 56 Total Creatine Kinase 44 Troponin I < 0.012 NT-Pro-B Natriuret Pep Total Protein 8.5 H Albumin 4.0 Globulin 4.5 H Albumin/Globulin Ratio 0.9 L Lipase 86 Procalcitonin 0.068 Urine RBC 0-1/hpf Urine WBC 10-30/hpf H Ur Squamous Epith Cells None seen Urine Bacteria Moderate (10-30) H Ur Culture Indicated? Specimen cultured Vol Urine Centrifuged 10ml (spun) SARS-CoV-2 (PCR) Influenza A (RT-PCR) Influenza B (RT-PCR) RSV (PCR) 05/17/24 05/17/24 05/17/24 12:42 15:36 16:02 WBC RBC Hgb Hct MCV MCH MCHC RDW Plt Count Neut % (Auto) Lymph % (Auto) [place] % (Auto) Eos % (Auto) Baso % (Auto) Neut # (Auto) Lymph # (Auto) [place] # (Auto) Eos # (Auto) Baso # (Auto) PT INR APTT ABG Sample Site Left radial ABG pH 7.37 ABG pCO2 43.8 ABG pO2 83 ABG HCO3 26 ABG Total CO2 25 ABG O2 Saturation 96 ABG Base Excess 0.2 Rafi Test Positive VBG pH VBG pCO2 VBG pO2 VBG HCO3 VBG Total CO2 VBG O2 Saturation VBG Base Excess O2 Delivery Device oximask Sodium Potassium Chloride Carbon Dioxide BUN Creatinine Estimated GFR BUN/Creatinine Ratio Glucose Lactate 0.6 L Calcium Total Bilirubin AST ALT Alkaline Phosphatase Total Creatine Kinase Troponin I NT-Pro-B Natriuret Pep 622 H Total Protein Albumin Globulin Albumin/Globulin Ratio Lipase Procalcitonin Urine RBC Urine WBC Ur Squamous Epith Cells Urine Bacteria Ur Culture Indicated? Vol Urine Centrifuged SARS-CoV-2 (PCR) Influenza A (RT-PCR) Influenza B (RT-PCR) RSV (PCR) 05/17/24 16:45 WBC RBC Hgb Hct MCV MCH MCHC RDW Plt Count Neut % (Auto) Lymph % (Auto) [place] % (Auto) Eos % (Auto) Baso % (Auto) Neut # (Auto) Lymph # (Auto) [place] # (Auto) Eos # (Auto) Baso # (Auto) PT INR APTT ABG Sample Site ABG pH ABG pCO2 ABG pO2 ABG HCO3 ABG Total CO2 ABG O2 Saturation ABG Base Excess Rafi Test VBG pH VBG pCO2 VBG pO2 VBG HCO3 VBG Total CO2 VBG O2 Saturation VBG Base Excess O2 Delivery Device Sodium Potassium Chloride Carbon Dioxide BUN Creatinine Estimated GFR BUN/Creatinine Ratio Glucose Lactate Calcium Total Bilirubin AST ALT Alkaline Phosphatase Total Creatine Kinase Troponin I NT-Pro-B Natriuret Pep Total Protein Albumin Globulin Albumin/Globulin Ratio Lipase Procalcitonin Urine RBC Urine WBC Ur Squamous Epith Cells Urine Bacteria Ur Culture Indicated? Vol Urine Centrifuged SARS-CoV-2 (PCR) Negative Influenza A (RT-PCR) Flu a negative Influenza B (RT-PCR) Flu b negative RSV (PCR) Negative Assessment & Plan Assessment & Plan narrative: 1. Sepsis secondary to acute cystitis with acute respiratory failure with hypoxia, acute metabolic encephalopathy. - hx of pseudomonas at [facility] in the urine - grossly positive UA in the ER. Follow up blood and urine cultures. - s/p 2L IVF in the ER, hold on additional fluids given hx of CHFpEF - given ceftazedime in the ER, will continue cefepime 2g q12 for now. Pending urine cultures and blood cultures. 2. diastolic heart failure, chronic - TTE at [facility] 12/2023 with EF 60-65%, no indication for repeat now. - hold IV fluids for now, hold diuretics. Consider restarting diuresis tomorrow depending on hypoxia at that time. - can restart if hypotension develops overnight 3. Anemia, chronic - unclear etiology for Hg of 8.0. Per discharge summary from [facility] Hg was 9.3 then. 4. HTN - hold home medications in setting of sepsis. 5. PTSD, chronic - resume home medications 6. COPD, chronic - replace home inhalers with formulary nebulizer therapies, discussed with RT and will start duonebs and pulmicort for now. 7. Chronic cognitive impairment - SLUMS at [facility] evaluation was 01/04. - will start seroquel as patient already confused, was a bit agitated when coming upstairs and with me during my encounter. 8. 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 Nicotine dependence - has cut down, still intermittent smoking - consider nicotine patch. 10. Obesity - The patient is at much higher risk for medical and surgical complications because of their obesity. This increases the difficulty and complexity of medical and surgical interventions and increases the chances of poor outcomes such as morbidity and mortality. Dispo: Admit inpatient, anticipated stay is beyond two midnights. Depending on improvement, may need SNF or possible return to [facility]. surrogate decision maker is the patient's son. patient stated previously she is full code. DVT: On rivaroxaban I have utilized all available immediate resources to obtain, update, or review the patient's current medications. Additional history obtained via discussions with the ER provider. These discussions contributed to the creation of the above assessment and plan. I have reviewed patient's presenting documentation, labs, and imaging personally. Time-Based Coding :: [TOTAL MINUTES] spent with patient and on the chart (including review of chart, obtaining history, exam, reviewing outside data, placing orders, documenting exam and treatment plan, and counseling patient) on [DATE].
[2024-05-17] MEDS: BUDESONIDE 0.5 MG/2 ML NEB INH (19:20)
[2024-05-17] MEDS: CEFEPIME 2 GM in SODIUM CHLORIDE 0.9% 100 ML IV (20:33)
[2024-05-17] MEDS: BUSPIRONE 5 MG TABLET PO (20:33)
[2024-05-17] MEDS: QUETIAPINE 25 MG TABLET PO (20:33)
[2024-05-18] VITALS (55 sets, daily range): BP systolic 100–143; BP diastolic 49–72; PULSE 71–93; RESP 6–33; TEMP 36.4–37.1; O2SAT 90–100
[2024-05-18 01:27] LABS: MRSA (Nasal) PCR NOT DETECTED (Not Detect)
[2024-05-18 05:50] LABS: Add Manual Diff / Slide Review NO; Basophils Absolute Auto 100 /uL (0-100); Eosinophils Absolute Auto 200 /uL (0-450); Eosinophils Percent Auto 2.7 % (2-4); Hematocrit 21.1 % (36-46); Lymphocytes Absolute Auto 1700 /uL (1100-4500); Mean Corpuscular HGB Conc 31.7 % (30-36); Mean Corpuscular Hemoglobin 25.3 PG (26-34); Mean Corpuscular Volume 79.9 fL (80-100); Monocytes Absolute Auto 1000 /uL (0-900); Neutrophils Absolute Auto 5900 /uL (1500-7000); Neutrophils Percent Auto 66.3 % (50-75); Platelet Count 381 X10^3/uL (150-400); Red Blood Cell Count 2.64 X10^6/uL (4.0-5.2); Red Cell Distribution Width 15.3 % (11.6-14.8); White Blood Cell Count 8.9 X10^3/uL (4.5-11.0)
[2024-05-18 05:54] LABS: Hemoglobin 6.7 g/dL (12.0-16.0)
[2024-05-18 06:35] LABS: Hemoglobin A1C% w Est Avg Glu 4.8 % (4.0-6.0)
[2024-05-18 06:37] LABS: Alanine Aminotransferase 11 IU/L (<35); Alkaline Phosphatase 61 U/L (38-126); Aspartate Aminotransferase 20 IU/L (14-36); BUN Creatinine Ratio 32.4 (6-22); Bilirubin Total 0.2 mg/dL (0.2-1.3); Blood Urea Nitrogen 24 mg/dL (7-17); Carbon Dioxide 25 mmol/L (22-32); Estimated Glomerular Filt Rate > 60 mL/min (>60); HEMOLYSIS < 15 (0-50)
[2024-05-18 06:53] LABS: Albumin Globulin Ratio 0.8 (1.0-2.8); Calcium 8.5 mg/dL (8.4-10.2); Chloride 111 mmol/L (98-107); Globulin 3.6 g/dL (1.7-4.1); Glucose 84 mg/dL (80-110); Magnesium 2.3 mg/dL (1.6-2.3); Potassium 4.2 mmol/L (3.4-5.1); Sodium 140 mmol/L (137-145); Total Protein 6.6 g/dL (6.3-8.2)
[2024-05-18] MEDS: ATORVASTATIN 20 MG TABLET 40 MG PO (08:58)
[2024-05-18] MEDS: BUSPIRONE 5 MG TABLET PO ×2 (08:59→21:04)
[2024-05-18] MEDS: ESCITALOPRAM 10 MG TABLET 20 MG PO (08:59)
[2024-05-18] MEDS: PANTOPRAZOLE 40 MG VIAL IV ×2 (08:59→21:04)
[2024-05-18] MEDS: ACETAMINOPHEN 325 MG TABLET 650 MG PO ×2 (09:21→21:06)
[2024-05-18] MEDS: BUDESONIDE 0.5 MG/2 ML NEB INH ×2 (11:11→19:34)
[2024-05-18] MEDS: ALBUTEROL/IPRATROPIUM 3 ML AMPUL INH ×4 (11:11→23:36)
[2024-05-18] MEDS: INSULIN LISPRO 100 UNIT/ML 3ML VIAL SUBCUT ×2 (12:22→16:38)
--- NOTE | 2024-05-18 13:31 | PT-IP ANOTE ---
Physical Therapy evaluation order received. Chart reviewed. Pt's Hgb 6.7 today. Will hold Physical Therapy today.
--- NOTE | 2024-05-18 13:35 | OT.IPNOTE ---
Pt has low HH and to be receiving blood, hold OT eval.
--- NOTE | 2024-05-18 13:50 | CM.DANOTE ---
Initial DCP Assessment Note Pt is a 78 yo female, current resident of [facility] in [place], admitted [place] for medical management of Sepsis secondary to acute cystitis with acute respiratory failure with hypoxia and acute metabolic encephalopathy. PCP: [facility] Payer: MCR/ELLIE Reviewed chart, met w/patient and her son (newly assigned DPOA) Taran. According to our conversation; Patient had been living with her SO in [facility], [place] patient was hospitalized. Patient had been evicted from this rental and was eventually readmitted to [facility] where she stayed until they secured a bed at [facility]. According to son, [facility] did not have the staffing to provide enough care to patient. Patient is currently requiring assist with transfers and most ADLs, does not ambulate. Son Taran explains that if patient can get into a rehab for strengthening he would like to take her home to provide the care. Patient has other children although they are not as involved or available as son Taran. Discussed patient's ELLIE and neither patient or son knew how her financial obligation to [facility] vs [facility] worked- patient was still receiving a check from [facility] and was supposed to pay her rent (or participation fee possibly?) directly to [facility]. Patient/son state they did not know this. Patient/son request referral to [facility]. Son is hopeful to take patient home after her stay, patient is hopeful for same. Referral sent to [facility] per patient/son request. Hospital exempt PASRR still needed: [facility]. Sero[place] at [place] (?) CM team will plan to follow clinical course closely. HAYDE Little Discharge Planning/Care Management CM Discharge Assessment Start: 05/18/24 13:46 Freq: Status: Active Protocol: Document 05/18/24 13:46 NICHOLAS (Rec: 05/18/24 13:49 NICHOLAS [id number]) Discharge Planning Assessment Assigned Master Automotive Technician HAYDE Camp DPREAL/Assigned Designee Name jose juan Espinal Contact Information [phone] Advance Directives? No History Provided By Patient,Family Member,Medical Record Prior Living Arrangements Assisted Living Household Members other Type of transportation used prior to Relies on Others admit Facility Name Admitted From: [facility] Willing to Return to Facility? No Independent with ADL's No Is patient alert and oriented? No: Mild Dementia Needs Assistance With Bathing,Grooming,Meal Prep, Toileting,Managing Medications ,Home Chores / Shopping Patient/Family Preference Detention Facility Barriers to Discharge Yes Comment Patient and son will not consider a return to [facility] Discharge Plan Detention Facility Transportation Arrangement Wheelchair vs BLS Referrals Initiated Detention Additional Comment 1.) [facility] If patient plan is SNF: Has PASSR been No completed? SNF/HH Preference [facility], jose juan Chirinos lives in [facility] and visits often. Has Agency SNF been contacted Yes
[2024-05-18] MEDS: LIDOCAINE 1% 30 ML 5 ML INJ (14:13)
[2024-05-18] MEDS: CEFEPIME 2 GM in SODIUM CHLORIDE 0.9% 100 ML IV (14:49)
--- NOTE | 2024-05-18 15:48 | P.PN_ITS ---
Subjective Subjective Interval history: 78 F admitted with sepsis likely due to urinary source. She is improving today, still lethargic and confused to baseline. Hg was also <7 this AM. Started on PPI IV BID and given 2 U PRBC. No signs or symptoms of bleeding today, unclear cause. Exam Vital Signs (past 8 hours): - 05/18/24 07:57 05/18/24 10:43 05/18/24 10:57 Temperature 98.0 F Pulse Rate 84 84 Respiratory Rate 21 21 Blood Pressure 101/51 L Pulse Oximetry 96 92 Oxygen Delivery Method Oximask Oxygen Flow Rate 1.5 Fraction of Inspired Oxygen 26 05/18/24 10:58 05/18/24 11:00 05/18/24 11:00 Temperature 98.0 F Pulse Rate 82 84 Respiratory Rate 23 24 Blood Pressure 103/52 L 103/52 L Pulse Oximetry 91 Oxygen Delivery Method Oxygen Flow Rate Fraction of Inspired Oxygen 05/18/24 11:11 05/18/24 11:15 05/18/24 11:15 Temperature Pulse Rate 79 80 Respiratory Rate 20 20 Blood Pressure 101/52 L Pulse Oximetry 96 98 Oxygen Delivery Method Oximask Oxygen Flow Rate 2 Fraction of Inspired Oxygen 05/18/24 11:30 05/18/24 11:30 05/18/24 11:45 Temperature Pulse Rate 79 Respiratory Rate 21 Blood Pressure 107/54 L 110/55 L Pulse Oximetry 94 Oxygen Delivery Method Oxygen Flow Rate Fraction of Inspired Oxygen 05/18/24 11:45 05/18/24 12:00 05/18/24 12:00 Temperature Pulse Rate 82 78 Respiratory Rate 20 21 Blood Pressure 100/49 L Pulse Oximetry 93 92 Oxygen Delivery Method Oxygen Flow Rate Fraction of Inspired Oxygen 05/18/24 12:15 05/18/24 12:15 05/18/24 12:30 Temperature Pulse Rate 74 79 Respiratory Rate 21 25 H Blood Pressure 108/56 L Pulse Oximetry 93 90 L Oxygen Delivery Method Oxygen Flow Rate Fraction of Inspired Oxygen 05/18/24 13:00 05/18/24 13:28 05/18/24 13:30 Temperature 98.1 F Pulse Rate 75 76 76 Respiratory Rate 22 19 30 H Blood Pressure 108/56 L Pulse Oximetry 94 97 Oxygen Delivery Method Oxygen Flow Rate Fraction of Inspired Oxygen 05/18/24 14:00 05/18/24 14:30 05/18/24 14:36 Temperature Pulse Rate 80 78 79 Respiratory Rate 25 H 22 19 Blood Pressure Pulse Oximetry 98 96 96 Oxygen Delivery Method Oxygen Flow Rate Fraction of Inspired Oxygen 05/18/24 14:36 05/18/24 14:37 05/18/24 14:45 Temperature 98.1 F Pulse Rate 80 Respiratory Rate 19 Blood Pressure 120/59 L 120/59 L 111/57 L Pulse Oximetry Oxygen Delivery Method Oxygen Flow Rate Fraction of Inspired Oxygen 05/18/24 14:45 05/18/24 14:52 05/18/24 15:00 Temperature 98.0 F Pulse Rate 79 77 Respiratory Rate 24 19 Blood Pressure 111/57 L 109/54 L Pulse Oximetry 96 Oxygen Delivery Method Oxygen Flow Rate Fraction of Inspired Oxygen 05/18/24 15:00 05/18/24 15:00 05/18/24 15:06 Temperature 97.5 F L Pulse Rate 77 81 Respiratory Rate 21 20 Blood Pressure Pulse Oximetry 96 100 Oxygen Delivery Method Nasal Cannula Oxygen Flow Rate 3 Fraction of Inspired Oxygen 05/18/24 15:15 05/18/24 15:15 Temperature Pulse Rate 77 Respiratory Rate 22 Blood Pressure 127/56 L Pulse Oximetry 98 Oxygen Delivery Method Oxygen Flow Rate Fraction of Inspired Oxygen Fraction of Inspired Oxygen 26 SaO2/FiO2 Ratio 369 Oxygen Delivery Method Nasal Cannula Oxygen Flow Rate 3 Narrative Exam Narrative: General:? Patient is well developed and well nourished, in no distress at this time. Improved lethargy and confusion. HEENT:? Normocephalic, atraumatic, extraocular muscles intact, oral pharynx is clear and mucous membranes are moist. Neck: supple and symmetric, trachea is midline, no cervical adenopathy. Chest:? Normal AP diameter and contour without kyphoscoliosis, no tachypnea, equal chest rise bilaterally. Lungs:? CTA b/l no wheezing rhonchi or rales. Cardio:?RRR no m/r/g. Abdomen: S NT ND. Musculoskeletal:? Muscle strength and tone are equal within normal limits, no deformity. Extremities: bilateral LE edema with skin thickening b/l LE Neuro:? Alert and orientated to person, location. Not time. Objective Labs 05/18/24 04:15 05/18/24 04:15 Labs: Laboratory Results - last 24 hr 05/17/24 05/17/24 05/17/24 11:09 12:36 12:42 WBC RBC Hgb Hct MCV MCH MCHC RDW Plt Count Neut % (Auto) Lymph % (Auto) [place] % (Auto) Eos % (Auto) Baso % (Auto) Neut # (Auto) Lymph # (Auto) [place] # (Auto) Eos # (Auto) Baso # (Auto) Sodium Potassium Chloride Carbon Dioxide BUN Creatinine Estimated GFR BUN/Creatinine Ratio Glucose Hemoglobin A1c Lactate Calcium Magnesium Total Bilirubin AST ALT Alkaline Phosphatase Total Creatine Kinase 44 Troponin I < 0.012 NT-Pro-B Natriuret Pep 622 H Total Protein Albumin Globulin Albumin/Globulin Ratio Urine RBC 0-1/hpf Urine WBC 10-30/hpf H Ur Squamous Epith Cells None seen Urine Bacteria Moderate (10-30) H Ur Culture Indicated? Specimen cultured Vol Urine Centrifuged 10ml (spun) Nasal Screen MRSA (PCR) SARS-CoV-2 (PCR) Influenza A (RT-PCR) Influenza B (RT-PCR) RSV (PCR) Blood Type Antibody Screen Crossmatch 05/17/24 05/17/24 05/17/24 16:02 16:45 23:45 WBC RBC Hgb Hct MCV MCH MCHC RDW Plt Count Neut % (Auto) Lymph % (Auto) [place] % (Auto) Eos % (Auto) Baso % (Auto) Neut # (Auto) Lymph # (Auto) [place] # (Auto) Eos # (Auto) Baso # (Auto) Sodium Potassium Chloride Carbon Dioxide BUN Creatinine Estimated GFR BUN/Creatinine Ratio Glucose Hemoglobin A1c Lactate 0.6 L Calcium Magnesium Total Bilirubin AST ALT Alkaline Phosphatase Total Creatine Kinase Troponin I NT-Pro-B Natriuret Pep Total Protein Albumin Globulin Albumin/Globulin Ratio Urine RBC Urine WBC Ur Squamous Epith Cells Urine Bacteria Ur Culture Indicated? Vol Urine Centrifuged Nasal Screen MRSA (PCR) Not detected SARS-CoV-2 (PCR) Negative Influenza A (RT-PCR) Flu a negative Influenza B (RT-PCR) Flu b negative RSV (PCR) Negative Blood Type Antibody Screen Crossmatch 05/18/24 05/18/24 04:15 07:52 WBC 8.9 RBC 2.64 L Hgb 6.7 L* Hct 21.1 L MCV 79.9 L MCH 25.3 L MCHC 31.7 RDW 15.3 H Plt Count 381 Neut % (Auto) 66.3 Lymph % (Auto) 19.0 L [place] % (Auto) 11.0 Eos % (Auto) 2.7 Baso % (Auto) 1.0 Neut # (Auto) 5900 Lymph # (Auto) 1700 [place] # (Auto) 1000 H Eos # (Auto) 200 Baso # (Auto) 100 Sodium 140 Potassium 4.2 D Chloride 111 H Carbon Dioxide 25 BUN 24 H Creatinine 0.74 Estimated GFR > 60 BUN/Creatinine Ratio 32.4 H Glucose 84 Hemoglobin A1c 4.8 Lactate Calcium 8.5 Magnesium 2.3 Total Bilirubin 0.2 AST 20 ALT 11 Alkaline Phosphatase 61 Total Creatine Kinase Troponin I NT-Pro-B Natriuret Pep Total Protein 6.6 Albumin 3.0 L Globulin 3.6 Albumin/Globulin Ratio 0.8 L Urine RBC Urine WBC Ur Squamous Epith Cells Urine Bacteria Ur Culture Indicated? Vol Urine Centrifuged Nasal Screen MRSA (PCR) SARS-CoV-2 (PCR) Influenza A (RT-PCR) Influenza B (RT-PCR) RSV (PCR) Blood Type B Positive Antibody Screen Negative Crossmatch See Detail [facility] Medical History (Updated 05/17/24 @ 16:31 by Delma Anglin MD) COPD (chronic obstructive pulmonary disease) Diastolic heart failure Brain tumor Diabetes Non-ST elevated myocardial infarction Lymphedema Surgical History (Updated 09/19/20 @ 08:23 by Joel Ivy DO) No pertinent past surgical history Social History household members: other Smoking Status: Former smoker alcohol intake: never Assessment & Plan Assessment & Plan narrative: 1. Sepsis secondary to acute cystitis with acute respiratory failure with hypoxia, acute metabolic encephalopathy. - hx of pseudomonas at [facility] in the urine - grossly positive UA in the ER. Follow up blood and urine cultures. - s/p 2L IVF in the ER, hold on additional fluids given hx of CHFpEF - given ceftazedime in the ER, will continue cefepime 2g q12 for now. Pending urine cultures and blood cultures. - continue to wean from O2 as tolerated. With transfusion today consider diuresis if worsened O2 requirements. 2. diastolic heart failure, chronic - TTE at [facility] 12/2023 with EF 60-65%, no indication for repeat now. - hold IV fluids for now, hold diuretics. If worsened hypoxia after 2U PRBC trial lasix but limited by low BP today. 3. Acute on chronic anemia, chronic - unclear etiology for Hg of 6.7. Per discharge summary from [facility] Hg was 9.3 then. Transfuse 2U PRBC today. Monitor h/h. Goal Hg >7. 4. HTN - hold home medications in setting of sepsis. 5. PTSD, chronic - resume home medications 6. COPD, chronic - replace home inhalers with formulary nebulizer therapies, discussed with RT and will start duonebs and pulmicort for now. 7. Chronic cognitive impairment - SLUMS at [facility] evaluation was 01/04. - will start seroquel as patient already confused on admission and was a bit agitated when coming upstairs. Will continue to monitor on current dose, may need to cut in half as she was groggy this AM but she was improved this afternoon. 8. 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 Nicotine dependence - has cut down, still intermittent smoking - consider nicotine patch. 10. Obesity - The patient is at much higher risk for medical and surgical complications because of their obesity. This increases the difficulty and complexity of medical and surgical interventions and increases the chances of poor outcomes such as morbidity and mortality. Dispo: Admit inpatient, anticipated stay is beyond two midnights. Depending on improvement, may need SNF or possible return to [facility]. surrogate decision maker is the patient's son. patient stated previously she is full code. DVT: On rivaroxaban, but will hold given h/h drop. SCDs. I have utilized all available immediate resources to obtain, update, or review the patient's current medications. Additional history obtained via discussions with the bedside nurse, case therapist, pharmacist today. These discussions contributed to the creation of the above assessment and plan. I have reviewed patient's presenting documentation, labs, and imaging personally. Time-Based Coding :: [TOTAL MINUTES] spent with patient and on the chart (including review of chart, obtaining history, exam, reviewing outside data, placing orders, documenting exam and treatment plan, and counseling patient) on [DATE].
[2024-05-18] MEDS: QUETIAPINE 25 MG TABLET PO (21:04)
[2024-05-18] MEDS: HYDROCODONE/ACET 10/325 TABLET 1 TAB PO (21:05)
[2024-05-19] VITALS (21 sets, daily range): BP systolic 107–160; BP diastolic 53–68; PULSE 68–91; RESP 11–39; TEMP 36.2–36.8; O2SAT 87–98
[2024-05-19] MEDS: CEFEPIME 2 GM in SODIUM CHLORIDE 0.9% 100 ML IV (03:13)
[2024-05-19 05:17] LABS: Add Manual Diff / Slide Review NO; Basophils Absolute Auto 100 /uL (0-100); Basophils Percent Auto 0.9 % (0-2); Eosinophils Absolute Auto 300 /uL (0-450); Eosinophils Percent Auto 3.3 % (2-4); Hematocrit 28.9 % (36-46); Hemoglobin 9.4 g/dL (12.0-16.0); Lymphocytes Absolute Auto 1300 /uL (1100-4500); Lymphocytes Percent Auto 13.4 % (25-40); Mean Corpuscular HGB Conc 32.7 % (30-36); Mean Corpuscular Hemoglobin 26.8 PG (26-34); Mean Corpuscular Volume 81.9 fL (80-100); Monocytes Absolute Auto 1100 /uL (0-900); Monocytes Percent Auto 11.1 % (3-14); Neutrophils Absolute Auto 7100 /uL (1500-7000); Neutrophils Percent Auto 71.3 % (50-75); Platelet Count 316 X10^3/uL (150-400); Red Blood Cell Count 3.53 X10^6/uL (4.0-5.2); Red Cell Distribution Width 15.5 % (11.6-14.8); White Blood Cell Count 9.9 X10^3/uL (4.5-11.0)
[2024-05-19 05:27] LABS: Alanine Aminotransferase 11 IU/L (<35); Albumin Globulin Ratio 0.8 (1.0-2.8); Alkaline Phosphatase 57 U/L (38-126); Aspartate Aminotransferase 20 IU/L (14-36); BUN Creatinine Ratio 27.5 (6-22); Bilirubin Total 0.4 mg/dL (0.2-1.3); Blood Urea Nitrogen 19 mg/dL (7-17); Calcium 8.4 mg/dL (8.4-10.2); Carbon Dioxide 27 mmol/L (22-32); Chloride 111 mmol/L (98-107); Estimated Glomerular Filt Rate > 60 mL/min (>60); Globulin 3.7 g/dL (1.7-4.1); Glucose 79 mg/dL (80-110); HEMOLYSIS < 15 (0-50); Magnesium 2.1 mg/dL (1.6-2.3); Potassium 4.3 mmol/L (3.4-5.1); Sodium 141 mmol/L (137-145); Total Protein 6.7 g/dL (6.3-8.2)
[2024-05-19] MEDS: BUDESONIDE 0.5 MG/2 ML NEB INH ×2 (07:56→19:41)
[2024-05-19] MEDS: ALBUTEROL/IPRATROPIUM 3 ML AMPUL INH ×3 (07:56→19:41)
[2024-05-19] MEDS: ATORVASTATIN 20 MG TABLET 40 MG PO (08:14)
[2024-05-19] MEDS: BUSPIRONE 5 MG TABLET PO ×2 (08:15→20:59)
[2024-05-19] MEDS: ESCITALOPRAM 10 MG TABLET 20 MG PO (08:15)
[2024-05-19] MEDS: PANTOPRAZOLE 40 MG VIAL IV (08:15)
[2024-05-19] MEDS: SODIUM CHLORIDE 0.9% FLUSH 10 ML IV ×2 (08:16→21:00)
[2024-05-19] MEDS: HYDROCODONE/ACET 10/325 TABLET 1 TAB PO (10:39)
--- NOTE | 2024-05-19 11:05 | OT.IP.EVAL ---
Current Diagnoses Sepsis, unspecified organism (05/17/24) Past Medical History (Last Updated 09/19/20 @ 08:22 by Joel Ivy DO) Brain tumor COPD (chronic obstructive pulmonary disease) Diabetes Diastolic heart failure Lymphedema Non-ST elevated myocardial infarction Surgical History (Last Updated 09/19/20 @ 08:23 by Joel Ivy DO) No pertinent past surgical history Occupational Therapy Inpatient Evaluation/Re-Eval M1 PT/OT-IP Prior Functional Status Start: 05/19/24 13:02 Freq: NEEDED Status: Active Protocol: Document 05/19/24 13:03 [facility] (Rec: 05/19/24 13:19 [facility] [id number]) Medical Review Prior Functional Status Communication Pt has word finding difficulties. Mobility and Gait Pt states lately using a wc but has been able to use a FWW but not lately since being at [facility]. Activities of Daily Living and IADL's Pt states gets assist for dressing, toileting, showering and IADL needs. Social History Household Members other Living Arrangements Assisted Living M2 OT-IP Current Condition Start: 05/19/24 13:02 Freq: Status: Active Protocol: Document 05/19/24 13:03 [facility] (Rec: 05/19/24 13:19 [facility] [id number]) Occupational Therapy Current Condition Current Condition Evaluation Date 05/19/24 Treatment Diagnosis Sepsis, generalized weakness Diagnosis Onset Date 05/17/24 M3 OT- IP Subjective and Pain Start: 05/19/24 13:02 Freq: Status: Active Protocol: Document 05/19/24 13:03 [facility] (Rec: 05/19/24 13:19 [facility] [id number]) OT- Subjective Occupational Therapy Visit Type Type Initial Evaluation Visit Start Time 10:05 Visit Stop Time 11:05 Occupational Therapy Visit Comments Patient Comments Pt agreed to get up to the recliner. Patient/Caregiver Goals TO get better. OT Pain Assessment Pain When Pain Assessed At Rest Pain Present Pain Present Pain Reported Location Neck Intensity 5 Scale Used Numeric (0 - 10) M4 OT- IP ADL's Start: 05/19/24 13:02 Freq: Status: Active Protocol: Document 05/19/24 13:03 [facility] (Rec: 05/19/24 13:19 [facility] [id number]) OT [id number] Comments OT Self-Feeding Comments Not at meal time. OT ADL-Grooming General Evaluation Grooming Ability Standby Assistance Areas Needing Assistance Retrieving/Set-up of Grooming Items Comments OT Grooming Comments Pt able to wash her face after set-up. OT ADL-Oral Care General Eval Oral Care Ability Standby Assistance Areas of Assistance Retrieving/Set-Up of Items Comments Oral Care Comments Able to do while seated. OT ADL-Dressing General Eval Lower Body Dressing Ability Total Assistance Areas Needing Assistance Socks OT ADL-Toileting General Evaluation Toileting Ability Total Assistance Areas Needing Assistance Empty Catheter or Colostomy Comments OT Toileting Comments Haley in place. OT ADL-Bathing Comments OT Bathing Comments Not performed. M5 OT- IP IADL's Start: 05/19/24 13:02 Freq: Status: Active Protocol: Document 05/19/24 13:03 [facility] (Rec: 05/19/24 13:19 [facility] [id number]) OT-Instrumental Activities of Daily Living Home Safety Awareness Home Safety Comments Pt a bit fuzzy on details of prior medical history and when she was able to mobilize herself. Medication Management Medication Management Caregiver Administers Money Management Money Management Caregiver Provides Assistance Meal Preparation Meal Preparation Caregiver Provides Assist Pattern Storage Clerk Pattern Storage Clerk Caregiver Provides Assist M6 OT- IP Functional Cognition Start: 05/19/24 13:02 Freq: Status: Active Protocol: Document 05/19/24 13:03 [facility] (Rec: 05/19/24 13:19 [facility] [id number]) Cognitive Factors Limiting Selfcare Function Cognitive Ability Level of Alertness Alert,Confusional State Patient Orientation Name,Month,Year,Place, Situation Attention Span Ability Capable of Focused Attention, Capable of Sustained Attention Ability to Follow Commands Able to Follow One Step Commands with Increased Time, Able to Follow One Step Commands with Repetition Memory Description Short Term Impaired,Working Impaired Problem Solving Ability Unable to Identify Errors, Needs Assist to Identify Solutions Executive Function Ability Unable to Filter Distractions, Unable to Remember Details Cognitive Tests SLUMS Pt scored 13/30 which implies dementia. Pt thought it was Wednesday, not able to calculate 100-23, able to recall 7 animals in one minute, able to recall 1/5 object after time passed, not able to draw the hour hands correctly on the clock after time given, and able to answer 2/4 questions right after paragraph read. Pt is a bit groggy and best to reassess when more alert and medically stable. Cognitive Comments Cognitive Assessment Comments Pt needing increased time to process, and has difficulty to get her words out. Pt needing word options as not able to come up with the word wrist or elbow when touched for light touch. OT- Vision and Hearing OT- Hearing Assessment OT- Hearing Assessment WFL OT- Vision Assessment Visual Acuity WFL Visual Attentiveness WFL Occular Pursuits WFL M7 OT- IP Mobility and Balance Start: 05/19/24 13:02 Freq: Status: Active Protocol: Document 05/19/24 13:03 [facility] (Rec: 05/19/24 13:19 [facility] [id number]) OT- Bed Mobility Assessment Supine to Sit Supine to Sit Assist Moderate Assistance,1 Person Assistance,Bedrails OT-Transfer Assessment Sit to and From Stand Sit to and from Stand Moderate Assistance,1 Person Assistance Transfers Transfer Ability Moderate Assistance,1 Person Assistance,2 Person Assistance Technique Transfer Destination Bed,Chair Transfer Technique Stand Step Pivot Devices Transfer Assistive Devices Gait Belt,Front Wheeled Walker Comments Mobility Comments MODA and needing to pull on therapist hand to assist to get upright and to the edge of the bed. MODA X 1-2 to stand and transfer to the recliner with the FWW. OT- Balance Assessment Sitting Balance and Reactions Static Sitting Balance Ability Good Dynamic Sitting Balance Ability Fair Standing Balance and Reactions Static Standing Balance Ability Fair Dynamic Standing Balance Ability Poor M8 OT- IP Objective Assessments Start: 05/19/24 13:02 Freq: Status: Active Protocol: Document 05/19/24 13:03 [facility] (Rec: 05/19/24 13:19 [facility] [id number]) OT Gross Range of Motion Upper Extremity Range of Motion ROM Impairments Grossly WFL OT Strength Comments Strength Comments BUE 4-/5 to 4/5 from proximal to distal. OT- Coordination Assessment Upper Extremity Finger to Nose Test Within Functional Limits OT Sensation Assessment Edema Edema Comments RUE swollen and read from itching, nursing and hospitalist aware. M9 OT- IP Assessment and Plan Start: 05/19/24 13:02 Freq: Status: Active Protocol: Document 05/19/24 13:03 [facility] (Rec: 05/19/24 13:19 [facility] [id number]) OT Summary Assessment and Plan Potential Rehabilitation Potential Good Analytic Complexity at Evaluation Moderate Summary OT Impairments Pain,Strength,Balance, Functional Cognition, Functional Mobility,Self- Feeding,Grooming,Dressing, Toileting,Bathing,Toilet Transfers,Shower Transfers, Activity Tolerance Progress Towards Goals Slow Progress due to Pain,Slow Progress due to Medical Issues,Slow Progress due to Activity Tolerance,Slow Progress due to Cognition Assessment Summary Pt MOD complexity and main barriers are pain , and per pt has not been mobilizing much at [facility] per pt. Pt will benefit from skilled rehab to maximize her level of independence for ADL and mobility needs. Pt is very motivated to get better and be able to care for herself and does not want to return to [facility]. Pt hopeful to have her son care for her. Goals Self-Feeding Goal Independent Grooming Goal Independent Dressing Goal Minimal Assistance Toileting Goal Minimal Assistance Bathing Goal Moderate Assistance Toilet Transfer Goal Standby Assistance Shower Transfer Goal Contact Guard Assistance Days to Meet Goals 25 Frequency of Treatment Other frequency 5x/week Treatment Plan OT Treatment Plan ADL Training,Functional Cognition Training,Functional Mobility,Patient/Family Education,Discharge Planning Discharge Recommendations OT Discharge Recommendations SNF Rehab Transportation Needs at Discharge Wheelchair/Cabulance
--- NOTE | 2024-05-19 13:19 | CM.DPNOTE ---
DCP Cont [facility] accepts for admission when patient is medically stable. Hospital exempt PASRR completed and signed by Dr Ivy. Seroquel was not included on this PASRR- needs updating if patient discharges with new Rx Seroquel. Placed call to [facility], Lisa answered. Explained that son would like to pick patient's items up. Lisa plans to call son and discuss. Plan: Discharge to [facility] anticipated. Transport TBD. Hospital exempt PASRR done; pls fax copy to On[facility]ul [phone] upon discharge. CM team following for coordination. Need to update patient and son with above. NICHOLAS
--- NOTE | 2024-05-19 14:24 | PT-IP ANOTE ---
checked on pt this morning but was on the phone and requested for PT to come back. will f/u.
--- NOTE | 2024-05-19 14:30 | PT.IIE ---
Current Diagnoses Sepsis, unspecified organism (05/17/24) Surgical History (Last Updated 09/19/20 @ 08:23 by Joel Ivy DO) No pertinent past surgical history Medical History (Last Updated 09/19/20 @ 08:22 by Joel Ivy DO) Brain tumor COPD (chronic obstructive pulmonary disease) Diabetes Diastolic heart failure Lymphedema Non-ST elevated myocardial infarction Physical Therapy Inpatient Evaluation/Re-Eval M1 PT/OT-IP Prior Functional Status Start: 05/19/24 17:18 Freq: NEEDED Status: Active Protocol: Document 05/19/24 14:30 AB (Rec: 05/19/24 17:31 AB [id number]) Medical Review Prior Functional Status Medical History Reviewed Yes Communication able to make needs known; with confusion Mobility and Gait pt stated that she was able to walk using a 4WW Activities of Daily Living and IADL's per OT ntoe: Pt states gets assist for dressing, toileting , showering and IADL needs. Social History Household Members other Living Arrangements Assisted Living Number of Floors (Floors) One Floor Number of Stairs To Enter/Railing? pt lives at [facility] but stated that she will not be going back there and will be going to her son's house Home Environment Walk in Shower Home Equipment Four Wheel Walker,Shower Seat with Backrest,Hand Held Shower ,Grab Bars Near Toilet,Grab Bars In Shower M2 PT-IP Current Condition Start: 05/19/24 17:18 Freq: NEEDED Status: Active Protocol: Document 05/19/24 14:30 AB (Rec: 05/19/24 17:31 AB [id number]) Physical Therapy Current Condition Current Condition Evaluation Date 05/19/24 Treatment Diagnosis AMS; sepsis; UTI; difficulty in walking Onset Date 05/17/24 M3 PT-IP Subjective Start: 05/19/24 17:18 Freq: NEEDED Status: Active Protocol: Document 05/19/24 14:30 AB (Rec: 05/19/24 17:31 AB [id number]) Subjective Physical Therapy Visit Type Type Initial Evaluation Visit Start Time 14:30 Visit Stop Time 15:10 Number of SHINGLE CATCHER Visits 0 Physical Therapy Visit Comments Patient Comments with confusion and easily gets agitated; agreed to get up and walk M4 PT-IP Mobility and Gait Start: 05/19/24 17:18 Freq: NEEDED Status: Active Protocol: Document 05/19/24 14:30 AB (Rec: 05/19/24 17:31 AB [id number]) PT-Transfer Assessment Sit to and From Stand Sit to and from Stand Minimal Assistance,Maximum Assistance,1 Person Assistance ,Use of Upper Extremities Equipment Transfer Assistive Device Gait Belt,4 Wheeled Walker Orthotic/Prosthetic Devices or Brace: No Transfers Transfer Destination Bed,Chair Transfer Technique ambulated Transfer Ability Level of Assist Minimal Assistance,Maximum Assistance,1 Person Assistance ,Use of Upper Extremities Comments Mobility Comments pt sitting on the chair. obtained PLOF and home setup. pt with confusion and unable to provide clear answers. pt also gets agitated easy. pt refused to use FWW and wants to use her 4WW. sit to stand from chair min A and cues. ambulated ~ 12 ft using 4WW min to mod A and stated that she has to sit down. pt sat on EOB. pt sliding off EOB and PT assisted pt and locked 4WW. pt with confusion and unable to follow directs and gets agitated and was trying to climb over her 4WW. calmed pt down and instructed to stand up again max A from EOB. pt started to take steps and PT tried to assist pt with 4WW brakes but pt won't allow PT and pt brushed off PT's hand away. pt requiring mod to max A for ambulation using 4WW. positioned pt back to chair. call light and table placed within reach. Gait Assessment Gait Gait Assistance Required: Minimum Assistance,Moderate Assistance,Maximum Assistance, 1 Person Assist Distance (Feet) 12 Able to Maintain Weight Bearing Status Yes During Gait Assistive Devices Assistive Device Gait Belt,4 Wheeled Walker Orthotic/Prosthetic Devices or Brace: No Gait Deviations General Gait Pattern Decreased Stride Length, Decreased Feet Clearance,Step- to Gait Factors Limiting Gait Function Factors Limiting Gait Function Decreased Activity Tolerance, Decreased Strength,Difficulty Following Directions,Limited Range of Motion,Poor Balance, Poor Safety Awareness, Respiratory Distress PT-Balance Assessment Sitting Balance and Reactions Static Sitting Balance Ability Fair Dynamic Sitting Balance Ability Fair Standing Balance and Reactions Static Standing Balance Ability Fair Dynamic Standing Balance Ability Poor Device Used 4WW M5 PT-IP Objective Assessments Start: 05/19/24 17:18 Freq: NEEDED Status: Active Protocol: Document 05/19/24 14:30 AB (Rec: 05/19/24 17:31 AB [id number]) Orientation Orientation/Cognition Level of Alertness Confusional State Orientation Name Language Function Ability Hard of Hearing Safety Awareness Decreased Safety Awareness Memory Description Short Term Impaired,Third Shift Lieutenant Impaired Gross Range of Motion Lower Extremity ROM Assessment Within Functional Limits Strength Lower Extremity Strength Assessment Within Functional Limits Muscle Tone Muscle Tone WNL Yes M6 PT-IP Treatment Start: 05/19/24 17:18 Freq: NEEDED Status: Active Protocol: Document 05/19/24 14:30 AB (Rec: 05/19/24 17:31 AB [id number]) Physical Therapy Treatment Education Education Provided Safety M7 PT-IP Assessment and Plan Start: 05/19/24 17:18 Freq: NEEDED Status: Active Protocol: Document 05/19/24 14:30 AB (Rec: 05/19/24 17:31 AB [id number]) PT Summary Assessment and Plan Potential Rehabilitation Potential Fair Status of Condition at Evaluation Evolving Summary Impairments ROM,Balance,Coordination, Sensation,Cognition,Bed Mobility,Transfers,Gait, Activity Tolerance Assessment Summary pt is a 78 y/o F who is admitted for altered mental status, sepsis, UTI. pt with confusion and easily gets agitated affecting safety awareness and level of assistance needed for mobility . pt requiring min to max A and max cues. recommending 2 person assist at this time for safety due to pt's confusion and decrease cognitive level affecting pt's ability to follow instructions. pt will benefit from SNF rehab to improve overall strength and mobility. Goals Bed Mobility Goal Standby Assistance Transfer Goal Standby Assistance,Front Wheeled Walker,Four Wheeled Walker Gait Goal Standby Assistance,Front Wheel Walker,Four Wheel Walker Gait Distance 100 Days to Meet Goals 10 Frequency of Treatment Frequency Of Treatment Once a Day Treatment Plan Physical Therapy Treatment Plan Bed Mobility Training,Transfer Training,Gait Training, Therapeutic Exercise,Balance Retraining,Post Op Education, Discharge Planning,Hot or Cold Pack,Neuromuscular Re-ed, Coordination Retraining,Manual Therapy Precautions Other Precautions falls, O2 Recommendations To Nursing Amount of Assist Needed 2 Person Assist Discharge Recommendations PT Discharge Recommendations SNF Rehab Transportation Needs at Discharge Wheelchair/Cabulance - PT assist 2PA
--- NOTE | 2024-05-19 15:09 | DIET.CONS ---
Dietary Consultation Note Admission Date: 05/17/2024 17:47 Assessment: 78 y F admitted for sepsis. Nutrition screened for low MNA. Met with pt and son at bedside who report pt had good appetite during hospitalization, but didn't like food at [facility] so started adding in Ensures BID at that point to support EER. Unable to provide dietary recall or estimated % po intakes compared to usual po intakes. Pt reports appetite is improving now. Ht: 160.02 cm Wt: 80.059 kg BMI: 31.2 UBW: son reports 220 lb (100 kg) is normal weight summer of 2023 (-20% weight loss within 1 year, severe) Last BM: () MNA: 9 Beau Score: 15 Diet: 05/17/24 Dinner Carbohydrate Consistent Diet Diet Modifications: Carbohydrate level: Large (4 CHO) Reflex DM orders: No Nutrition Percent Meal Consumed 100% 05/18/24 13:09 Labs: RBC 3.53 X10^6/uL (4.0-5.2) L 05/19/24 04:40 Hgb 9.4 g/dL (12.0-16.0) L 05/19/24 04:40 Hct 28.9 % (36-46) L 05/19/24 04:40 Creatinine 0.69 mg/dL (0.52-1.04) 05/19/24 04:40 Hemoglobin A1c 4.8 % (4.0-6.0) 05/18/24 04:15 Lactate 0.6 mmol/L (0.7-2.1) L 05/17/24 16:02 NT-Pro-B Natriuret Pep 622 pg/mL (<450) H 05/17/24 12:42 Nutrition Diagnosis: Unintentional weight loss r/t recent prolonged hospitalization and dislike of living facility food options aeb 20% weight loss within 1 year Interventions: Pt ordering half orders of food or lower protein source options, ONS 1-2x/day EER: 1400 kcals (15 kcals/kg vs MSJ x1.3 sepsis) 95g protein (1.5g/kg per sepsis) Monitoring/Evaluations: po intakes Electronically Signed by: Reina Vargas 05/19/24 15:09 [address] [id number]
[2024-05-19] MEDS: ACETAMINOPHEN 325 MG TABLET 650 MG PO (16:28)
[2024-05-19] MEDS: INSULIN LISPRO 100 UNIT/ML 3ML VIAL SUBCUT (16:59)
--- NOTE | 2024-05-19 17:15 | PM.PN.1 ---
Subjective Subjective Interval history: 78 F admitted with sepsis likely due to urinary source. Intermittently agitated but generally encephalopathy is improving. Had RUE erythema and pruritis, has augmentin allergy noted. Will stop cefepime and changed to PO cipro based on sensitivities from urine culture today. Exam Vital Signs (past 8 hours): - 05/19/24 12:00 05/19/24 16:00 05/19/24 16:54 Temperature 97.9 F Pulse Rate 80 91 H 85 Respiratory Rate 24 21 22 Blood Pressure 154/68 H 110/56 L Pulse Oximetry 95 89 L 95 Oxygen Delivery Method Nasal Cannula Oxygen Flow Rate 4 2 2 Fraction of Inspired Oxygen 32 SaO2/FiO2 Ratio 303 Oxygen Delivery Method Nasal Cannula Oxygen Flow Rate 2 Narrative Exam Narrative: General:? Patient is well developed and well nourished, in no distress at this time. Improved lethargy and confusion. HEENT:? Normocephalic, atraumatic, extraocular muscles intact, oral pharynx is clear and mucous membranes are moist. Neck: supple and symmetric, trachea is midline, no cervical adenopathy. Chest:? Normal AP diameter and contour without kyphoscoliosis, no tachypnea, equal chest rise bilaterally. Lungs:? CTA b/l no wheezing rhonchi or rales. Cardio:?RRR no m/r/g. Abdomen: S NT ND. Musculoskeletal:? Muscle strength and tone are equal within normal limits, no deformity. Extremities: bilateral LE edema with skin thickening b/l LE, mildly improved edema today. She has mild erythema RUE, pruritic with scratch hernandez on her hands. Neuro:? Alert and orientated to person, location. Not time. Objective Labs 05/19/24 04:40 05/19/24 04:40 Labs: Laboratory Results - last 24 hr 05/19/24 04:40 WBC 9.9 RBC 3.53 L Hgb 9.4 L Hct 28.9 L MCV 81.9 MCH 26.8 MCHC 32.7 RDW 15.5 H Plt Count 316 Neut % (Auto) 71.3 Lymph % (Auto) 13.4 L [place] % (Auto) 11.1 Eos % (Auto) 3.3 Baso % (Auto) 0.9 Neut # (Auto) 7100 H Lymph # (Auto) 1300 [place] # (Auto) 1100 H Eos # (Auto) 300 Baso # (Auto) 100 Sodium 141 Potassium 4.3 Chloride 111 H Carbon Dioxide 27 BUN 19 H Creatinine 0.69 Estimated GFR > 60 BUN/Creatinine Ratio 27.5 H Glucose 79 L Calcium 8.4 Magnesium 2.1 Total Bilirubin 0.4 AST 20 ALT 11 Alkaline Phosphatase 57 Total Protein 6.7 Albumin 3.0 L Globulin 3.7 Albumin/Globulin Ratio 0.8 L [facility] Medical History (Updated 05/17/24 @ 16:31 by Delma Anglin MD) COPD (chronic obstructive pulmonary disease) Diastolic heart failure Brain tumor Diabetes Non-ST elevated myocardial infarction Lymphedema Surgical History (Updated 09/19/20 @ 08:23 by Joel Ivy DO) No pertinent past surgical history Social History household members: other Smoking Status: Former smoker alcohol intake: never Assessment & Plan Assessment & Plan narrative: 1. Sepsis secondary to acute cystitis with acute respiratory failure with hypoxia, acute metabolic encephalopathy. - hx of pseudomonas at [facility] in the urine, cultures with Klebsiella today. Though she previously have pseudomonas grow late at [facility]. Will transition to PO ciprofloxacin today. Continue tele to monitor QT interval, most recently 430 range. - s/p 2L IVF in the ER, held on additional fluids given hx of CHFpEF - given ceftazedime in the ER, continued cefepime 2g q12 initially but change to PO cipro today as she started developing a RUE rash. - continue to wean from O2 as tolerated. With transfusion today consider diuresis if worsened O2 requirements. 2. diastolic heart failure, chronic - TTE at [facility] 12/2023 with EF 60-65%, no indication for repeat now. - hold IV fluids for now, hold diuretics. If worsened hypoxia after 2U PRBC trial lasix but limited by low BP today. 3. Acute on chronic anemia, chronic - unclear etiology for Hg of 6.7. Per discharge summary from [facility] Hg was 9.3 then. Transfuse 2U PRBC on 05/18 with improvement to 9.4. Monitor h/h daily. No signs or symptoms of bleeding today. Started PPI empirically, will transition to PO daily. Consider surgery consult depending on h/h trend or outpatient evaluation. 4. HTN - holding home medications in setting of sepsis and anemia. Normotensive today. 5. PTSD, chronic - resume home medications 6. COPD, chronic - replace home inhalers with formulary nebulizer therapies, discussed with RT and will start duonebs and pulmicort for now. 7. Chronic cognitive impairment - SLUMS at [facility] evaluation was 01/04. with therapy today. - started seroquel on admission as patient was already confused on admission and was a bit agitated when coming upstairs. Will continue to monitor on current dose, may need to cut in half but she is better this morning. 8. 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 Nicotine dependence - has cut down, still intermittent smoking - consider nicotine patch. 10. Obesity - The patient is at much higher risk for medical and surgical complications because of their obesity. This increases the difficulty and complexity of medical and surgical interventions and increases the chances of poor outcomes such as morbidity and mortality. Dispo: Admitted inpatient. Likely SNF on discharge, possible 1-2 more days pending stability of h/h. surrogate decision maker is the patient's son. patient stated previously she is full code. DVT: On rivaroxaban, but will hold given h/h drop. SCDs. I have utilized all available immediate resources to obtain, update, or review the patient's current medications. Additional history obtained via discussions with the bedside nurse, patient case coordinator, pharmacist today. These discussions contributed to the creation of the above assessment and plan. I have reviewed patient's presenting documentation, labs, and imaging personally. Time-Based Coding :: [TOTAL MINUTES] spent with patient and on the chart (including review of chart, obtaining history, exam, reviewing outside data, placing orders, documenting exam and treatment plan, and counseling patient) on [DATE].
[2024-05-19] MEDS: QUETIAPINE 25 MG TABLET PO (20:59)
[2024-05-19] MEDS: CIPROFLOXACIN 250 MG TABLET 500 MG PO (21:00)
[2024-05-20] VITALS (8 sets, daily range): BP systolic 119–145; BP diastolic 53–61; PULSE 74–84; RESP 20–31; TEMP 36.4–36.7; O2SAT 86–94
[2024-05-20 05:55] LABS: Add Manual Diff / Slide Review NO; Basophils Absolute Auto 100 /uL (0-100); Basophils Percent Auto 0.6 % (0-2); Eosinophils Absolute Auto 500 /uL (0-450); Eosinophils Percent Auto 5.1 % (2-4); Hematocrit 28.4 % (36-46); Hemoglobin 9.3 g/dL (12.0-16.0); Lymphocytes Absolute Auto 1400 /uL (1100-4500); Lymphocytes Percent Auto 14.5 % (25-40); Mean Corpuscular HGB Conc 32.6 % (30-36); Mean Corpuscular Hemoglobin 26.5 PG (26-34); Mean Corpuscular Volume 81.2 fL (80-100); Monocytes Absolute Auto 1000 /uL (0-900); Neutrophils Absolute Auto 6900 /uL (1500-7000); Neutrophils Percent Auto 69.8 % (50-75); Platelet Count 338 X10^3/uL (150-400); Red Cell Distribution Width 15.7 % (11.6-14.8); White Blood Cell Count 9.9 X10^3/uL (4.5-11.0)
[2024-05-20 06:05] LABS: Alanine Aminotransferase 11 IU/L (<35); Albumin Globulin Ratio 0.8 (1.0-2.8); Alkaline Phosphatase 59 U/L (38-126); Aspartate Aminotransferase 17 IU/L (14-36); BUN Creatinine Ratio 24.6 (6-22); Bilirubin Total 0.3 mg/dL (0.2-1.3); Blood Urea Nitrogen 14 mg/dL (7-17); Calcium 8.5 mg/dL (8.4-10.2); Carbon Dioxide 26 mmol/L (22-32); Chloride 107 mmol/L (98-107); Estimated Glomerular Filt Rate > 60 mL/min (>60); Globulin 3.7 g/dL (1.7-4.1); Glucose 99 mg/dL (80-110); HEMOLYSIS < 15 (0-50); Magnesium 1.9 mg/dL (1.6-2.3); Sodium 138 mmol/L (137-145); Total Protein 6.7 g/dL (6.3-8.2)
[2024-05-20] MEDS: CIPROFLOXACIN 250 MG TABLET 500 MG PO (06:23)
[2024-05-20] MEDS: PANTOPRAZOLE DR 40 MG TABLET PO (06:23)
[2024-05-20] MEDS: ESCITALOPRAM 10 MG TABLET 20 MG PO (08:16)
[2024-05-20] MEDS: ATORVASTATIN 20 MG TABLET 40 MG PO (08:16)
[2024-05-20] MEDS: BUSPIRONE 5 MG TABLET PO (08:16)
[2024-05-20] MEDS: SODIUM CHLORIDE 0.9% FLUSH 10 ML IV (08:16)
[2024-05-20] MEDS: diphenhydrAMINE 25 MG TABLET PO (09:55)
[2024-05-20] MEDS: ACETAMINOPHEN 325 MG TABLET 650 MG PO (09:55)
--- NOTE | 2024-05-20 10:14 | PM.DS.1 ---
History of Present Illness History of Present Illness Date Patient Seen: 05/20/24 Time Patient Seen: 10:14 Chief complaint: AMS Narrative: This is a 78-year-old female with a past medical history of HFpEF, VTE on Xarelto, DM2, obesity, COPD, HTN, HLD, tobacco use, PTSD who was admitted in February of [address] [facility] with altered mentation and treated for a UTI, pneumonia, influenza, and C diff infection. Patient was discharged from the hospital to [facility] where she has resided since. The patient presented to the emergency room today with lethargy per the emergency room provider. The patient is to encephalopathic at the moment to provide a reliable history but she is more alert now. She denies recent fever, chest pain, cough, dyspnea on exertion, abdominal pain. She felt nauseous earlier today she states but no other symptoms. Discharge Providers Provider Date of admission: 05/17/24 17:47 Discharge Date: 05/20/24 Primary care physician: George Sood MD Consults: 05/17/24 18:36 Consult to Occupational Therapy Evaluate & Treat Comment: Physician Instructions: Evaluate and treat Consult to Physical Therapy Evaluate & Treat Comment: Physician Instructions: Evaluate and Treat Discharge provider: Joel Ivy DO Summary Hospital Course Discharge Diagnosis: Please see hospital course by problem list noted below: Hospital Course: 1. Sepsis secondary to acute cystitis with acute respiratory failure with hypoxia, acute metabolic encephalopathy. - hx of pseudomonas at [facility] in the urine, cultures with Klebsiella here, though she previously have pseudomonas grow late at [facility] this did not happen this admission. Transitioned to PO ciprofloxacin 05/19 with end date for antibiotics on 05/23. No significant prolonged Qt on tele despite cipro and seroquel additions. - s/p 2L IVF in the ER, held on additional fluids given hx of CHFpEF after admission. - given ceftazedime in the ER, continued cefepime 2g q12 initially but changed to PO cipro as patient developed a rash presumably from cefepime (has augmentin allergy reported). - she was weaned off of supplemental oxygen, some drops overnight consider outpatient sleep study if patient tolerates. 2. diastolic heart failure, chronic - TTE at [facility] 12/2023 with EF 60-65%, no indication for repeat this admission. - held additional IV fluids for now as discussed above. Okay to resume aldactone on discharge. Okay to resume furosemide 40 mg on discharge as well. 3. Acute on chronic anemia, POA - unclear etiology for Hg of 6.7 on 05/18, may have been due to fluid resuscitation on admission. Per discharge summary from [facility] Hg was 9.3 then. Transfused 2U PRBC on 05/18 with improvement to 9.4 and stable afterwards. No signs or symptoms of bleeding throughout her stay. Started PPI empirically when Hg was 6.7, then transitioned to PO daily. Recommend outpatient evaluation after discharge. Her rivaroxaban was stopped as this was for a DVT in 2020 after risk and benefit discussion. 4. HTN - held home medications in setting of sepsis and anemia. She was resumed on losartan on discharge. 5. PTSD, chronic - resume home medications - started seroquel for help with this 6. COPD, chronic - replaced home inhalers with formulary nebulizer therapies, discussed with RT and will start duonebs and pulmicort for now. No changes to previous inhalers. 7. Chronic cognitive impairment - SLUMS at [facility] evaluation was 01/04. with therapy today. - started seroquel on admission as patient was already confused on admission and was a bit agitated when coming upstairs. Will continue to monitor on current dose, may need to cut in half but she is better this morning. 8. 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 Nicotine dependence - has cut down, still intermittent smoking - consider nicotine patch. 10. Obesity - The patient is at much higher risk for medical and surgical complications because of their obesity. This increases the difficulty and complexity of medical and surgical interventions and increases the chances of poor outcomes such as morbidity and mortality. Time Spent with Patient Time spent: Greater than 30 minutes Exam Vital Signs (past 8 hours): - 05/20/24 04:00 05/20/24 04:00 05/20/24 06:00 Temperature Pulse Rate 84 81 Respiratory Rate 20 21 Blood Pressure 119/58 L Pulse Oximetry 94 86 L Oxygen Delivery Method Oxygen Flow Rate 05/20/24 07:00 05/20/24 07:42 05/20/24 07:42 Temperature Pulse Rate 82 Respiratory Rate 22 Blood Pressure 145/60 H Pulse Oximetry 93 Oxygen Delivery Method Nasal Cannula Oxygen Flow Rate 05/20/24 08:00 05/20/24 08:00 Temperature 98.1 F Pulse Rate 80 Respiratory Rate 23 Blood Pressure 121/53 L Pulse Oximetry 92 Oxygen Delivery Method Oxygen Flow Rate 2 Fraction of Inspired Oxygen 32 SaO2/FiO2 Ratio 303 Oxygen Delivery Method Nasal Cannula Oxygen Flow Rate 2 Narrative Exam Narrative: General:? Patient is well developed and well nourished, in no distress at this time. Improved lethargy and confusion. HEENT:? Normocephalic, atraumatic, extraocular muscles intact, oral pharynx is clear and mucous membranes are moist. Neck: supple and symmetric, trachea is midline, no cervical adenopathy. Chest:? Normal AP diameter and contour without kyphoscoliosis, no tachypnea, equal chest rise bilaterally. Lungs:? CTA b/l no wheezing rhonchi or rales. Cardio:?RRR no m/r/g. Abdomen: S NT ND. Musculoskeletal:? Muscle strength and tone are equal within normal limits, no deformity. Extremities: bilateral LE edema with skin thickening b/l LE, mildly improved edema today. She has mild erythema RUE, pruritic with scratch hernandez on her hands. Neuro:? Alert and orientated to person, location. Not time. Objective Labs 05/20/24 04:40 05/20/24 04:40 Labs: Laboratory Results - last 24 hr 05/20/24 04:40 WBC 9.9 RBC 3.50 L Hgb 9.3 L Hct 28.4 L MCV 81.2 MCH 26.5 MCHC 32.6 RDW 15.7 H Plt Count 338 Neut % (Auto) 69.8 Lymph % (Auto) 14.5 L Mills % (Auto) 10.0 Eos % (Auto) 5.1 H Baso % (Auto) 0.6 Neut # (Auto) 6900 Lymph # (Auto) 1400 Mills # (Auto) 1000 H Eos # (Auto) 500 H Baso # (Auto) 100 Sodium 138 Potassium 4.0 Chloride 107 Carbon Dioxide 26 BUN 14 Creatinine 0.57 Estimated GFR > 60 BUN/Creatinine Ratio 24.6 H Glucose 99 Calcium 8.5 Magnesium 1.9 Total Bilirubin 0.3 AST 17 ALT 11 Alkaline Phosphatase 59 Total Protein 6.7 Albumin 3.0 L Globulin 3.7 Albumin/Globulin Ratio 0.8 L [facility] Medical History (Updated 03/12/25 @ 16:31 by Delma Anglin MD) COPD (chronic obstructive pulmonary disease) Diastolic heart failure Brain tumor Diabetes Non-ST elevated myocardial infarction Lymphedema Surgical History (Updated 09/19/20 @ 08:23 by Joel Ivy DO) No pertinent past surgical history Social History household members: other Smoking Status: Former smoker alcohol intake: never Discharge Plan Discharge Plan Patient Disposition: SNF Transfer to: [facility] and Healthcare Provider Discharge Comment: 78 F admitted with sepsis due to UTI. Improved with antibiotic therapy. Will complete total 7 day course of antibiotics with ciprofloxacin at discharge. Also was more anemic than previously, given 2U PRBC with stable h/h with no signs or symptoms of bleeding. Recommend stopping blood thinner for now, continue oral PPI. Consider restarting xarelto as this was done for DVT in 2020 in the near future, but given recent multiple admissions for anemia would continue outpatient evaluation prior to restarting. Started on seroquel for help with sleep in the setting of prior PTSD. Discharge orders & Medications Prescriptions: New ciprofloxacin HCl 500 mg tablet 500 mg PO 0700,2100 3 Days Qty: 6 0RF quetiapine 25 mg Tablet 25 mg PO BEDTIME Qty: 30 0RF pantoprazole 40 mg Tablet,Delayed Release (Dr/Ec) 40 mg PO 0700 Qty: 30 0RF Continued metformin 500 mg tablet 500 mg PO DAILY Rx Instructions: Take 500mg daily with breakfast spironolactone 25 mg tablet 12.5 mg PO DAILY Rx Instructions: Take 1/2 tablet by mouth in the morning daily potassium chloride 20 mEq tablet,ER particles/crystals 20 meq PO DAILY Rx Instructions: Take 1 tablet by mouth daily albuterol sulfate 90 mcg/actuation HFA aerosol inhaler 90 mcg INHALATION Q4H PRN (Reason: Wheezing) Patient Comments: [NO ORIGINAL SIG] escitalopram oxalate 20 mg tablet 20 mg PO DAILY buspirone 5 mg tablet 5 mg PO BID Rx Instructions: Take 1 tablet by mouth twice daily fluticasone propion-salmeterol 1 puff inhalation BID Rx Instructions: 100-50MCG/ACT 1 inhalation inhale orally two times a day for Copd Inhale 1 puff 2x a day rinse mouth with water after use losartan 25 mg tablet 25 mg PO DAILY Rx Instructions: Take 25 mg tablet by mouth daily atorvastatin 40 mg tablet 40 mg PO BEDTIME Rx Instructions: Give 40 mg by mouth at bedtime acetaminophen 325 mg Tablet 325 mg PO Q6H PRN (Reason: Mild Pain (Scale Score 1-4)) Rx Instructions: Take 1 tablet by mouth every 6 hours as needed for mild pain carvedilol 6.25 mg tablet 12.5 mg PO BID Patient Comments: [NO ORIGINAL SIG] Rx Instructions: Give 2 tablet by mouth two times daily diphenhydramine HCl [Allergy (diphenhydramine)] 25 mg Tablet 25 mg PO Q12H PRN (Reason: Itching) Rx Instructions: Take 1 tablet by mouth every 12 hours for itching hydrocodone-acetaminophen 10-325 mg tablet 1 tab PO Q6H PRN (Reason: Moderate Pain (Scale Score 5-6)) 7 Days Qty: 20 0RF Rx Instructions: Give 1 tablet by mouth every 6 hours as needed for moderate pain furosemide 40 mg tablet 40 mg PO DAILY Rx Instructions: Take 1 tablet by mouth once daily Discontinued Xarelto 10 mg tablet 10 mg PO BEDTIME Rx Instructions: Give 10 mg by mouth at bedtime Follow up/Referrals: George Sood MD [Primary Care Provider] - Discharge Health Status Multidrug resistant organism: No MDRO Diet/Activity/Treatments Diet: Diet as Tolerated and Regular Liquid consistency: Normal/Thin Food texture: Regular Activity: As tolerated, no restrictions Special Rehabilitation Services Reason for rehabilitation: Recovery r/t decondition Rehab type: Physical therapy and Occupational therapy Visit Report/Discharge Packet Stand Alone Forms: Patient Portal/API Discharge Data Primary Care Provider: George Sood
--- NOTE | 2024-05-20 11:14 | PC.NURSE ---
[facility] @ 1130, all belongings in patient belongings bags. Belongings of note are PJ set on a steel hanger, shirt, heavy socks, cell phone and 2 chargers with blocks, tablet, ensure drinks and a floral covered box containing pt spouse remains (pt keeps them with her at all times), pt also has a walker that is maroon with a seat. Cellphone and tablet are tagged with patient stickers from . No other belongings in patient's room. It is noted that all other pt belongings are currently at pts previous residence [facility] and pt jose juan Chirinos has an appointment on Monday 05/22 to pick them up. (this includes pts purse and wallet). No further pt needs at this time, care ongoing until discharge.
[2024-05-20] MEDS: BUDESONIDE 0.5 MG/2 ML NEB INH (11:23)
[2024-05-20] MEDS: ALBUTEROL/IPRATROPIUM 3 ML AMPUL INH (11:23)
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
== END 2024-05-20 11:46 | DRG 871 ==
LOC: ED 14:13 → AC 17:48 → ICU 18:06
PROVIDERS: Admitting Provider Internal Medicine; Emergency Provider Emergency Medicine; PCP Family Medicine; Referring Provider Emergency Medicine; Visit Provider Internal Medicine
DX: A41.9 Sepsis, unspecified organism (principal); G93.41 Metabolic encephalopathy; J96.01 Acute respiratory failure with hypoxia; I50.32 Chronic diastolic (congestive) heart failure; N30.00 Acute cystitis without hematuria; R65.20 Severe sepsis without septic shock; D64.9 Anemia, unspecified; I11.0 Hypertensive heart disease with heart failure; F43.10 Post-traumatic stress disorder, unspecified; J44.9 Chronic obstructive pulmonary disease, unspecified; E66.9 Obesity, unspecified; G31.84 Mild cognitive impairment of uncertain or unknown etiology; B96.1 Klebsiella pneumoniae [K. pneumoniae] as the cause of diseases classified elsewhere; E11.9 Type 2 diabetes mellitus without complications; E78.5 Hyperlipidemia, unspecified; F17.200 Nicotine dependence, unspecified, uncomplicated; I25.2 Old myocardial infarction; Z79.84 Long term (current) use of oral hypoglycemic drugs; Z68.31 Body mass index [BMI] 31.0-31.9, adult; Z79.01 Long term (current) use of anticoagulants; Z86.718 Personal history of other venous thrombosis and embolism
CPT/HCPCS: 0241U; 36415; 36430; 36600; 70450; 71045; 74176; 80053; 81003; 81015; 82550; 82805; 82962; 83036; 83605; 83690; 83735; 83880; 84145; 84484; 85025; 85610; 85730; 86850; 86900; 86901; 87040; 87077; 87086; 87186; 87797; 93005; 94640; 94762; 94799; 96361; 96365; 96367; 96375; 97129; 97162; 97166; 97530; 99285; 99291; P9016; J0692; J0713; J1642; J1815; J2405; J2470

== ENCOUNTER 2024-05-20 13:27 | Observation (INO) | payer MEDICARE, MEDICAID, SELFPAY ==
[2024-05-17 19:30] VITALS: BMI 31.2
[2024-05-20] VITALS (13 sets, daily range): BP systolic 131–155; BP diastolic 53–84; PULSE 73–84; RESP 16–18; TEMP 36.5–36.7; O2SAT 92–97; BMI 33.7
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
--- NOTE | 2024-05-20 15:26 | PC.NURSE ---
Joo pts sone and grandson here in ED wanting to visit pt. Informed pt isn't accepting visitors right now. GEOPHYSICAL COMPUTER aware.
--- NOTE | 2024-05-20 15:33 | CM.DPNOTE ---
DCP Note PROPOSAL COORDINATOR notified by ED PROPOSAL COORDINATOR that pt returned to ED after pt dc'd from [facility] two hours prior. Per ED PROPOSAL COORDINATOR, pt called 911 from lobby after refusing to sign intake paperwork. Per PT/OT notes from 05/19/24, rec SNF. OT note [facility] . PROPOSAL COORDINATOR met with pt in room. Pt claims to not remember conversation with this PROPOSAL COORDINATOR from earlier this morning about her preference to DC to [facility] for rehab. (See previous admission PROPOSAL COORDINATOR note from 05.20.24 from this author for more). Per the conversation this PROPOSAL COORDINATOR had with pt/son (RAFI) Taran in room this morning, pt was agreeable/her preference was to dc to [facility]. Pt reports she refuses to return to [place] or go back to [facility]. Pt unable to give a reason why. Pt became agitated during conversation with this PROPOSAL COORDINATOR. when PROPOSAL COORDINATOR attempted to remind pt of conversation with this PROPOSAL COORDINATOR this morning pt became agitated/started to yell at this PROPOSAL COORDINATOR. RN at bedside. Per Paz at , pt seemed to have a PTSD panic attack and refused to leave waiting room. Per their admin team, now refusing to accept her back at this time due to their in ability to meet her behavioral health/mental health needs. PROPOSAL COORDINATOR reviewed with PROPOSAL COORDINATOR admissions supervisor [place]/ED PROPOSAL COORDINATOR/hospitalist often throughout afternoon. See provider notes/ ED PROPOSAL COORDINATOR notes for more. CM team will continue to follow closely HAYDE Leonardo
--- NOTE | 2024-05-20 16:16 | P.HP_ITS ---
History of Present Illness History of Present Illness Date Patient Seen: 05/20/24 Chief complaint: Resp Problem Narrative: This is a 78-year-old female with a past medical history of HFpEF, VTE on Xarelto, DM2, obesity, COPD, HTN, HLD, tobacco use, PTSD who was admitted in February of 2024 to [facility] with altered mentation and treated for a UTI, pneumonia, influenza, and C diff infection. Patient was discharged from the hospital to [facility] where she did not like it and the care she received there. She was just discharged this morning to jail facility at [facility] after an admission here for acute encephalopathy, and another urinary tract infection which had improved. When she got there she did not like it, and was sent back to the emergency room, though I have her varied stories from different parties regarding what happened there. The patient denies any current complaints. She was recommended for jail facility, however accepting facility was no longer willing to accept her back. With this she was readmitted to look for possible placement at another nursing facility. [facility] Medical History (Updated 05/20/24 @ 18:07 by Delma Anglin MD) COPD (chronic obstructive pulmonary disease) Diastolic heart failure Brain tumor Diabetes Non-ST elevated myocardial infarction Lymphedema Surgical History (Updated 09/19/20 @ 08:23 by Joel Ivy DO) No pertinent past surgical history Social History household members: other Smoking Status: Former smoker alcohol intake: never Meds Home Medications and Allergies Home Medications Medication Instructions Recorded Confirmed Type furosemide 40 mg tablet 40 mg PO DAILY Fluid Retention 09/19/20 05/17/24 History acetaminophen 325 mg tablet 325 mg PO Q6H PRN Mild Pain (Scale 05/17/24 05/17/24 History Score 1-4) albuterol sulfate 90 mcg/actuation 90 mcg inhalation Q4H PRN Wheezing 05/17/24 05/17/24 History aerosol inhaler atorvastatin 40 mg tablet 40 mg PO BEDTIME High Cholesterol 05/17/24 05/17/24 History buspirone 5 mg tablet 5 mg PO BID Anxiety 05/17/24 05/17/24 History carvedilol 6.25 mg tablet 12.5 mg PO BID High Blood Pressure 05/17/24 05/17/24 History diphenhydramine HCl 25 mg tablet 25 mg PO Q12H PRN Itching 05/17/24 05/17/24 His tory (Allergy (diphenhydramine)) escitalopram oxalate 20 mg tablet 20 mg PO DAILY Depression 05/17/24 05/17/24 History fluticasone propion-salmeterol 1 puff inhalation BID COPD 05/17/24 05/18/24 History losartan 25 mg tablet 25 mg PO DAILY High Blood Pressure 05/17/24 05/17/24 History metformin 500 mg tablet 500 mg PO DAILY Diabetes 05/17/24 05/17/24 History potassium chloride 20 mEq 20 meq PO DAILY Low Potassium 05/17/24 05/17/24 History tablet,extended release(part/cryst) spironolactone 25 mg tablet 12.5 mg PO DAILY High Blood 05/17/24 05/17/24 History Pressure ciprofloxacin HCl 500 mg tablet 500 mg PO 0700,2100 3 days #6 tabs 05/20/24 Rx hydrocodone 10 mg-acetaminophen 1 tab PO Q6H PRN Moderate Pain 05/20/24 Rx 325 mg tablet (Scale Score 5-6) 7 days #20 tabs pantoprazole 40 mg tablet,delayed 40 mg PO 0700 #30 tabs 05/20/24 Rx release quetiapine 25 mg tablet 25 mg PO BEDTIME #30 tabs 05/20/24 Rx Allergies Allergy/AdvReac Type Severity Reaction Status Date / Time Iodinated Contrast Media Allergy Mild Verified 05/20/24 13:40 [Iodinated Contrast Media - IV Dye] Sulfa (Sulfonamide Allergy Mild Verified 05/20/24 13:40 Antibiotics) amoxicillin [From Augmentin] Allergy Verified 05/20/24 13:40 clavulanic acid Allergy Verified 05/20/24 13:40 [From Augmentin] Review of Systems Review of Systems Narrative: All other systems reviewed with the patient and are negative unless otherwise stated. Exam Vital Signs (past 8 hours): - 05/20/24 13:31 05/20/24 13:31 05/20/24 13:36 Temperature 98.1 F Pulse Rate 79 80 Respiratory Rate 18 Blood Pressure 131/84 131/84 Pulse Oximetry 93 95 Oxygen Delivery Method Nasal Cannula 05/20/24 14:00 05/20/24 14:00 05/20/24 14:30 Temperature Pulse Rate 80 80 Respiratory Rate Blood Pressure 138/63 Pulse Oximetry 94 96 Oxygen Delivery Method 05/20/24 14:31 05/20/24 14:31 05/20/24 15:02 Temperature Pulse Rate 81 79 Respiratory Rate Blood Pressure 131/59 L Pulse Oximetry 96 97 Oxygen Delivery Method Oxygen Delivery Method Nasal Cannula Narrative Exam Narrative: General:? Patient is well developed and well nourished, in no distress at this time. Improved lethargy and confusion. HEENT:? Normocephalic, atraumatic, extraocular muscles intact, oral pharynx is clear and mucous membranes are moist. Neck: supple and symmetric, trachea is midline, no cervical adenopathy. Chest:? Normal AP diameter and contour without kyphoscoliosis, no tachypnea, equal chest rise bilaterally. Lungs:? CTA b/l no wheezing rhonchi or rales. Cardio:?RRR no m/r/g. Abdomen: S NT ND. Musculoskeletal:? Muscle strength and tone are equal within normal limits, no deformity. Extremities: bilateral LE edema with skin thickening b/l LE Neuro:? Alert and orientated to person, location. Not time. Assessment & Plan Assessment & Plan narrative: 1. Sepsis secondary to acute cystitis with acute respiratory failure with hypoxia, acute metabolic encephalopathy. Improving from recent admission. - hx of pseudomonas at [facility] in the urine, cultures with Klebsiella here, though she previously have pseudomonas grow late at [facility] this did not happen this admi ssion. Transitioned to PO ciprofloxacin 05/19 with end date for antibiotics on 05/23. No significant prolonged Qt on tele despite cipro and seroquel additions. - will continue ciprofloxacin until 05/23 here this admission. - she was weaned off of supplemental oxygen, some drops overnight consider outpatient sleep study if patient tolerates. 2. diastolic heart failure, chronic - TTE at [facility] 12/2023 with EF 60-65%, no indication for repeat. - Okay to resume furosemide 40 mg daily, held last admit with sepsis. Now improved. 3. Acute on chronic anemia, stable, - recently transfused but stable h/h. - will obtain CBC tomorrow, this morning her h/h (previous admission technically) was stable 4. HTN - resume home losartan. 5. PTSD, chronic - resume home medications - started seroquel last admission for help with this 6. COPD, chronic - replaced home inhalers with formulary nebulizer therapies, discussed with RT and will start duonebs and pulmicort for now. No changes to previous inhalers. 7. Chronic cognitive impairment - SLUMS at [facility] evaluation was 01/04. with therapy 05/19. 8. Hx VTE - on chronic rivaroxaban, stopped last admission. VTE was in 2020 per [facility] documentation. 9. Nicotine dependence - has cut down, still intermittent smoking - consider nicotine patch. 10. Obesity - The patient is at much higher risk for medical and surgical complications because of their obesity. This increases the difficulty and complexity of medical and surgical interventions and increases the chances of poor outcomes such as morbidity and mortality. Dispo: Admitted observation. Likely SNF on discharge (recommendation from PT on last admit), medically stable now for SNF though needs to find new facility after today's events. Okay with no tele now or IV access. surrogate decision maker is the patient's son. patient stated previously she is full code. DVT: Lovenox daily. Stopped rivaroxaban as noted above. I have utilized all available immediate resources to obtain, update, or review the patient's current medications. Additional history obtained via discussions with the ER provider, telephonic case manager / social services today. These discussions contributed to the creation of the above assessment and plan. I have reviewed patient's presenting documentation, labs, and imaging personally. Time-Based Coding :: [TOTAL MINUTES] spent with patient and on the chart (including review of chart, obtaining history, exam, reviewing outside data, placing orders, documenting exam and treatment plan, and counseling patient) on [DATE].
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
[2024-05-20] MEDS: METFORMIN HCL 500 MG TABLET PO (18:04)
--- NOTE | 2024-05-20 18:14 | PC.NURSE ---
Assumed patient care at 1645. Patient arrived on 2L NC. This nurse trailed off o2 but patient didn't lolis. well. O2 sat dropped to 87-89% RA. Placed patient back on 1L NC and sustaining mid 90's. Pt has no IV access, provider aware and okay to maintain no access. Patient is resting with eye closed but arrouses when staff enters room, VSS, bed in low pos. alarm on, call light with in reach. continueing with plan of care at this time.
[2024-05-20] MEDS: CIPROFLOXACIN 250 MG TABLET 500 MG PO (21:45)
[2024-05-20] MEDS: ATORVASTATIN 20 MG TABLET 40 MG PO (21:53)
[2024-05-20] MEDS: BUSPIRONE 5 MG TABLET PO (21:53)
[2024-05-20] MEDS: QUETIAPINE 25 MG TABLET PO (21:53)
[2024-05-20] MEDS: HYDROCODONE/ACET 10/325 TABLET 1 TAB PO (21:53)
[2024-05-20] MEDS: carvediloL 3.125 MG TABLET 6.25 MG PO (21:54)
[2024-05-20] MEDS: NYSTATIN POWDER 15GM 1 APPLIC TOP (21:55)
[2024-05-21] VITALS (9 sets, daily range): BP systolic 106–129; BP diastolic 44–68; PULSE 58–82; RESP 16–20; TEMP 36.5–36.7; O2SAT 88–98
[2024-05-21 06:03] LABS: Add Manual Diff / Slide Review NO; Basophils Absolute Auto 100 /uL (0-100); Basophils Percent Auto 1.2 % (0-2); Eosinophils Absolute Auto 500 /uL (0-450); Eosinophils Percent Auto 5.2 % (2-4); Hematocrit 28.9 % (36-46); Hemoglobin 9.2 g/dL (12.0-16.0); Lymphocytes Absolute Auto 1500 /uL (1100-4500); Lymphocytes Percent Auto 16.7 % (25-40); Mean Corpuscular HGB Conc 31.9 % (30-36); Mean Corpuscular Hemoglobin 26.2 PG (26-34); Mean Corpuscular Volume 82.1 fL (80-100); Monocytes Absolute Auto 1000 /uL (0-900); Neutrophils Absolute Auto 6100 /uL (1500-7000); Neutrophils Percent Auto 65.9 % (50-75); Platelet Count 342 X10^3/uL (150-400); Red Blood Cell Count 3.51 X10^6/uL (4.0-5.2); White Blood Cell Count 9.3 X10^3/uL (4.5-11.0)
[2024-05-21 06:17] LABS: BUN Creatinine Ratio 21.9 (6-22); Blood Urea Nitrogen 14 mg/dL (7-17); Calcium 8.6 mg/dL (8.4-10.2); Carbon Dioxide 25 mmol/L (22-32); Chloride 109 mmol/L (98-107); Estimated Glomerular Filt Rate > 60 mL/min (>60); Glucose 94 mg/dL (80-110); HEMOLYSIS < 15 (0-50); Potassium 3.9 mmol/L (3.4-5.1); Sodium 139 mmol/L (137-145)
[2024-05-21] MEDS: PANTOPRAZOLE DR 40 MG TABLET PO (06:43)
[2024-05-21] MEDS: CIPROFLOXACIN 250 MG TABLET 500 MG PO ×2 (06:54→20:46)
[2024-05-21] MEDS: POTASSIUM CHLORIDE 20 MEQ/15 ML UDC PO (08:18)
[2024-05-21] MEDS: FUROSEMIDE 40 MG TABLET PO (08:18)
[2024-05-21] MEDS: SPIRONOLACTONE 12.5 MG TABLET PO (08:18)
[2024-05-21] MEDS: BUSPIRONE 5 MG TABLET PO ×2 (08:18→20:08)
[2024-05-21] MEDS: ESCITALOPRAM 10 MG TABLET 20 MG PO (08:18)
[2024-05-21] MEDS: carvediloL 3.125 MG TABLET 6.25 MG PO ×2 (08:19→20:08)
[2024-05-21] MEDS: ENOXAPARIN 40 MG/0.4 ML SYRINGE SUBCUT (08:20)
[2024-05-21] MEDS: LOSARTAN 25 MG TABLET PO (08:21)
[2024-05-21] MEDS: METFORMIN HCL 500 MG TABLET PO ×2 (08:22→18:04)
[2024-05-21] MEDS: ACETAMINOPHEN 325 MG TABLET 650 MG PO (08:55)
--- NOTE | 2024-05-21 11:34 | PM.PN.1 ---
Subjective Subjective Interval history: 78 F re-admitted yesterday after refusing to stay at nursing facility once she arrived there and was not able to go back. Re-admitted for further PT/OT, finding another SNF facility, or possibly being able to go home with home health if improving. Exam Vital Signs (past 8 hours): - 05/21/24 04:00 05/21/24 07:45 05/21/24 07:45 Temperature 98.1 F Pulse Rate 63 Respiratory Rate 20 Blood Pressure 122/59 L Pulse Oximetry 96 98 95 Oxygen Delivery Method Nasal Cannula Nasal Cannula Oxygen Flow Rate 1 05/21/24 08:19 05/21/24 08:21 Temperature Pulse Rate 58 L 58 L Respiratory Rate Blood Pressure 129/61 123/61 Pulse Oximetry Oxygen Delivery Method Oxygen Flow Rate Oxygen Delivery Method Nasal Cannula Oxygen Flow Rate 1 Narrative Exam Narrative: General:? Patient is well developed and well nourished, in no distress at this time. Improved lethargy and confusion. HEENT:? Normocephalic, atraumatic, extraocular muscles intact, oral pharynx is clear and mucous membranes are moist. Neck: supple and symmetric, trachea is midline, no cervical adenopathy. Chest:? Normal AP diameter and contour without kyphoscoliosis, no tachypnea, equal chest rise bilaterally. Lungs:? CTA b/l no wheezing rhonchi or rales. Cardio:?RRR no m/r/g. Abdomen: S NT ND. Musculoskeletal:? Muscle strength and tone are equal within normal limits, no deformity. Extremities: bilateral LE edema with skin thickening b/l LE Neuro:? Alert and orientated to person, location. Not time. Objective Labs 05/21/24 05:20 05/21/24 05:20 Labs: Laboratory Results - last 24 hr 05/21/24 05:20 WBC 9.3 RBC 3.51 L Hgb 9.2 L Hct 28.9 L MCV 82.1 MCH 26.2 MCHC 31.9 RDW 16.0 H Plt Count 342 Neut % (Auto) 65.9 Lymph % (Auto) 16.7 L [place] % (Auto) 11.0 Eos % (Auto) 5.2 H Baso % (Auto) 1.2 Neut # (Auto) 6100 Lymph # (Auto) 1500 [place] # (Auto) 1000 H Eos # (Auto) 500 H Baso # (Auto) 100 Sodium 139 Potassium 3.9 Chloride 109 H Carbon Dioxide 25 BUN 14 Creatinine 0.64 Estimated GFR > 60 BUN/Creatinine Ratio 21.9 Glucose 94 Calcium 8.6 Magnesium 2.0 [facility] Medical History (Updated 05/20/24 @ 18:07 by Delma Anglin MD) COPD (chronic obstructive pulmonary disease) Diastolic heart failure Brain tumor Diabetes Non-ST elevated myocardial infarction Lymphedema Surgical History (Updated 09/19/20 @ 08:23 by Joel Ivy DO) No pertinent past surgical history Social History household members: other Smoking Status: Former smoker alcohol intake: never Assessment & Plan Assessment & Plan narrative: 1. Sepsis secondary to acute cystitis with acute respiratory failure with hypoxia, acute metabolic encephalopathy. Improving from recent admission. - hx of pseudomonas at [facility] in the urine, cultures with Klebsiella here last admission, though she previously have pseudomonas grow late at [facility] this did not happen this admission. Transitioned to PO ciprofloxacin 05/19 with end date for antibiotics on 05/23. No significant prolonged Qt on tele despite cipro and seroquel additions. - will continue ciprofloxacin until 05/23 here this admission. - she was weaned off of supplemental oxygen, some drops overnight consider outpatient sleep study if patient tolerates. -restart PT/OT -intermittent O2 use, likely underlying AMILCAR as predominantly this occurs when she is asleep. recommend outpatient sleep study. 2. diastolic heart failure, chronic - TTE at [facility] 12/2023 with EF 60-65%, no indication for repeat. - Okay to resume home furosemide 40 mg daily, held last admit with sepsis. Now improved. 3. Acute on chronic anemia, stable, - slow downtrend in h/h, but essentially stable since last admission where she received 2U PRBC transfusion for a Hg of 6.7. Her anticoagulation for DVT in 2020 was stopped last admission. Will continue to follow CBC. 4. HTN - resume home losartan. 5. PTSD, chronic - resume home medications - started seroquel last admission for help with this 6. COPD, chronic - replaced home inhalers with formulary nebulizer therapies, discussed with RT and will start duonebs and pulmicort for now. No changes to previous inhalers. 7. Chronic cognitive impairment - SLUMS at [facility] evaluation was 01/04. with therapy 05/19. 8. Hx VTE - on chronic rivaroxaban, stopped last admission. VTE was in [address] [facility] documentation. 9. Nicotine dependence - has cut down, still intermittent smoking - consider nicotine patch. 10. Obesity - The patient is at much higher risk for medical and surgical complications because of their obesity. This increases the difficulty and complexity of medical and surgical interventions and increases the chances of poor outcomes such as morbidity and mortality. Dispo: Admitted observation. Likely SNF on discharge (recommendation from PT on last admit), medically stable now for SNF though needs to find new facility. If improving with therapies may be able to discharge home with home health though there have been APS referrals. Okay with no tele now or IV access. surrogate decision maker is the patient's son. patient stated previously she is full code. DVT: Lovenox daily. Stopped rivaroxaban as noted above. I have utilized all available immediate resources to obtain, update, or review the patient's current medications. Additional history obtained via discussions with the rn field case manager / manager social work today. These discussions contributed to the creation of the above assessment and plan. I have reviewed patient's presenting documentation, labs, and imaging personally. Time-Based Coding :: [TOTAL MINUTES] spent with patient and on the chart (including review of chart, obtaining history, exam, reviewing outside data, placing orders, documenting exam and treatment plan, and counseling patient) on [DATE].
--- NOTE | 2024-05-21 12:24 | PT.IIE ---
Surgical History (Last Updated 09/19/20 @ 08:23 by Joel Ivy DO) No pertinent past surgical history Medical History (Last Updated 09/19/20 @ 08:22 by Joel Ivy DO) Brain tumor COPD (chronic obstructive pulmonary disease) Diabetes Diastolic heart failure Lymphedema Non-ST elevated myocardial infarction Physical Therapy Inpatient Evaluation/Re-Eval M1 PT/OT-IP Prior Functional Status Start: 05/21/24 11:39 Freq: NEEDED Status: Active Protocol: Document 05/21/24 11:39 MB (Rec: 05/21/24 12:24 MB [id number]) Medical Review Prior Functional Status Medical History Reviewed Yes Communication Unsure baseline diet Mobility and Gait Pt uses rollator at baseline Activities of Daily Living and IADL's Pt does not answer ADL and IADL questions when PT asks her. When asks where she has most recently lived, she states she does not have a home. She was at [facility], [facility], [facility], [facility] and returned same day and now back at [facility]. Social History Household Members other Living Arrangements Assisted Living Number of Stairs To Enter/Railing? Unclear PLOF, per rounds, was at [facility] before last [facility] adm, but did not like it Home Equipment Four Wheel Walker M2 PT-IP Current Condition Start: 05/21/24 11:39 Freq: NEEDED Status: Active Protocol: Document 05/21/24 11:39 MB (Rec: 05/21/24 12:24 MB [id number]) Physical Therapy Current Condition Current Condition Evaluation Date 05/21/24 Treatment Diagnosis Return from [facility] without new medical dx, did not like facility M3 PT-IP Subjective Start: 05/21/24 11:39 Freq: NEEDED Status: Active Protocol: Document 05/21/24 11:39 MB (Rec: 05/21/24 12:24 MB [id number]) Subjective Physical Therapy Visit Type Type Initial Evaluation Visit Start Time 11:39 Visit Stop Time 11:56 Notes Pt with recent adm with sepsis d/t cystitis, history of COPD and decreased oxygenation Number of COMPLIANCE OFFICER Visits 0 Physical Therapy Visit Comments Patient Comments Pt is agreeable to PT, states she is wet even though she has purewick and cannot tell if she needs to get up to urinate on BSC Therapy Pain Assessment Pain When Pain Assessed At Rest Pain Present Pain Present Denied Pain M4 PT-IP Mobility and Gait Start: 05/21/24 11:39 Freq: NEEDED Status: Active Protocol: Document 05/21/24 11:39 MB (Rec: 05/21/24 12:24 MB [id number]) PT-Bed Mobility Assessment Rolling Type of Rolling Roll to Right Level of Assist Standby Assistance Supine to Sit Supine to Sit Standby Assistance,Head of Bed Elevated,Bedrails Scooting Scooting to Edge of Bed Standby Assistance PT-Transfer Assessment Sit to and From Stand Sit to and from Stand Standby Assistance Equipment Transfer Assistive Device Gait Belt,Front Wheeled Walker Orthotic/Prosthetic Devices or Brace: No Transfers Transfer Destination Bedside Commode Transfer Technique Stepping Transfer Ability Level of Assist Contact Guard Assistance,1 Person Assistance,Use of Upper Extremities Comments Mobility Comments Pt incontinent of urine upon standing and stepping to [facility] and left with nsg for toileting and hygiene, who are also in room with pt. O2 sats on RA when not talking are 89% and decrease to 86% when pt is talking. Pt with B LE skin changes, redness and edema, greater on the LLE Gait Assessment Gait Gait Assistance Required: Contact Guard Assist Distance (Feet) 2 Able to Maintain Weight Bearing Status Yes During Gait Assistive Devices Assistive Device Gait Belt,Front Wheeled Walker Gait Deviations General Gait Pattern Decreased Stride Length, Decreased Feet Clearance, Flexed Trunk,Step-to Gait,Wide Based Gait Factors Limiting Gait Function Factors Limiting Gait Function Decreased Activity Tolerance, Poor Balance,Poor Safety Awareness PT-Balance Assessment Sitting Balance and Reactions Static Sitting Balance Ability Good Dynamic Sitting Balance Ability Good Standing Balance and Reactions Static Standing Balance Ability Good Dynamic Standing Balance Ability Good Device Used RW M5 PT-IP Objective Assessments Start: 05/21/24 11:39 Freq: NEEDED Status: Active Protocol: Document 05/21/24 11:39 MB (Rec: 05/21/24 12:24 MB [id number]) Orientation Orientation/Cognition Level of Alertness Alert Orientation Name,Place,Situation Language Function Ability No Deficits Noted Safety Awareness Decreased Safety Awareness Comments Pt does not answer all questions when asked Gross Range of Motion Upper Extremity ROM Impairments Defer to OT Lower Extremity ROM Assessment Bilaterally Impaired Impairments Limited B ankles Strength Lower Extremity Strength Assessment Bilaterally Impaired Comments Strength Comments B ankles limited range and strength Coordination Assessment Assessment Coordination Comments NT Sensation Assessment Comments Sensation Comments NT M7 PT-IP Assessment and Plan Start: 05/21/24 11:39 Freq: NEEDED Status: Active Protocol: Document 05/21/24 11:39 MB (Rec: 05/21/24 12:24 MB [id number]) PT Summary Assessment and Plan Potential Rehabilitation Potential Fair Status of Condition at Evaluation Evolving Summary Impairments Pain,ROM,Strength,Balance, Coordination,Sensation, Cognition,Bed Mobility, Transfers,Gait,Activity Tolerance Progress Towards Goals Slow Progress - Other Assessment Summary Pt is a 69 y/o female readm same day d/cd to [facility] . Pt has no new medical dxs and had recent adm and d/c d/t sepsis d/t cystitis and she has a history of COPD with O2 desat on RA. Pt presents with urinary incontinence limiting PT today despite having purewick in bed. O2 sats decrease with talking and mouth breathing and increase when mouth closed. Pt does not provide much information on PLOF. Per team, plan is to d/c to another SNF. [facility] long-term may be appropriate for pt. Goals Bed Mobility Goal Independent Transfer Goal Independent,Front Wheeled Walker,Four Wheeled Walker Gait Goal Independent,Front Wheel Walker ,Four Wheel Walker Gait Distance 100 Days to Meet Goals 5 Frequency of Treatment Frequency Of Treatment Once a Day Treatment Plan Physical Therapy Treatment Plan Bed Mobility Training,Transfer Training,Gait Training, Therapeutic Exercise,Balance Retraining,Discharge Planning, Hot or Cold Pack,Neuromuscular Re-ed,Coordination Retraining ,Manual Therapy Precautions Other Precautions Urinary incontinence Recommendations To Nursing Amount of Assist Needed 1 Person Assist Discharge Recommendations PT Discharge Recommendations SNF Rehab Transportation Needs at Discharge Private Vehicle - PT assist x1
[2024-05-21] MEDS: HYDROCODONE/ACET 10/325 TABLET 1 TAB PO ×2 (12:56→20:08)
--- NOTE | 2024-05-21 13:42 | CM.DPNOTE ---
LUL[facility] Cont Met w/patient and her son Taran this morning. Patient calm, cooperative, alert and oriented- tracks this conversation. Patient reports wanting Taran involved in the planning. Taran agreeable to this. Taran remains hopeful another facility will accept patient to give her a chance to rehab. Taran would like to take patient home; states he would like a bath aide to help in order to give patient privacy. Discussed the potential for patient's facility based ELLIE coverage to be transitioned to in home care coverage, Taran states this would be very helpful. Getting SNF packet together now to send out to [facility], [facility], [facility], [facility] and [facility]. CM team could consider broadening search if these facilities decline. Patient remains a good SNF candidate. Patient has dementia w/what appears to be paranoid features, suspect trauma history w/anxiety and depression compounding patient's trouble trusting new people. Patient is agreeable to SNF stay and is hopeful her son can bring her home for care after rehab. CM team will plan to follow closely for placement efforts. HAYDE Little
[2024-05-21] MEDS: NYSTATIN POWDER 15GM 1 APPLIC TOP (18:04)
[2024-05-21] MEDS: ATORVASTATIN 20 MG TABLET 40 MG PO (20:08)
[2024-05-21] MEDS: QUETIAPINE 25 MG TABLET PO (20:08)
[2024-05-22 06:00] LABS: Add Manual Diff / Slide Review NO; Basophils Absolute Auto 100 /uL (0-100); Basophils Percent Auto 0.7 % (0-2); Eosinophils Absolute Auto 400 /uL (0-450); Eosinophils Percent Auto 3.8 % (2-4); Hematocrit 28.1 % (36-46); Lymphocytes Absolute Auto 2000 /uL (1100-4500); Lymphocytes Percent Auto 18.1 % (25-40); Mean Corpuscular HGB Conc 32.1 % (30-36); Mean Corpuscular Hemoglobin 26.4 PG (26-34); Mean Corpuscular Volume 82.2 fL (80-100); Monocytes Absolute Auto 900 /uL (0-900); Monocytes Percent Auto 7.8 % (3-14); Neutrophils Absolute Auto 7600 /uL (1500-7000); Neutrophils Percent Auto 69.6 % (50-75); Platelet Count 354 X10^3/uL (150-400); Red Blood Cell Count 3.42 X10^6/uL (4.0-5.2); Red Cell Distribution Width 15.9 % (11.6-14.8); White Blood Cell Count 10.9 X10^3/uL (4.5-11.0)
[2024-05-22 06:10] LABS: BUN Creatinine Ratio 27.7 (6-22); Blood Urea Nitrogen 18 mg/dL (7-17); Calcium 8.6 mg/dL (8.4-10.2); Carbon Dioxide 24 mmol/L (22-32); Chloride 108 mmol/L (98-107); Estimated Glomerular Filt Rate > 60 mL/min (>60); Glucose 97 mg/dL (80-110); HEMOLYSIS < 15 (0-50); Magnesium 1.7 mg/dL (1.6-2.3); Potassium 3.9 mmol/L (3.4-5.1); Sodium 139 mmol/L (137-145)
[2024-05-22] MEDS: CIPROFLOXACIN 250 MG TABLET 500 MG PO (06:58)
[2024-05-22] MEDS: PANTOPRAZOLE DR 40 MG TABLET PO (06:58)
[2024-05-22 08:00] VITALS: BP 108/52; PULSE 87; RESP 21; TEMP 36.8; O2SAT 93
[2024-05-22 08:30] VITALS: BP 108/52; PULSE 87
[2024-05-22] MEDS: POTASSIUM CHLORIDE 20 MEQ/15 ML UDC PO (08:30)
[2024-05-22] MEDS: carvediloL 3.125 MG TABLET 6.25 MG PO (08:30)
[2024-05-22] MEDS: FUROSEMIDE 40 MG TABLET PO (08:30)
[2024-05-22 08:31] VITALS: BP 108/52; PULSE 87
[2024-05-22] MEDS: ESCITALOPRAM 10 MG TABLET 20 MG PO (08:31)
[2024-05-22] MEDS: METFORMIN HCL 500 MG TABLET PO (08:31)
[2024-05-22] MEDS: SPIRONOLACTONE 12.5 MG TABLET PO (08:31)
[2024-05-22] MEDS: BUSPIRONE 5 MG TABLET PO (08:31)
[2024-05-22] MEDS: ENOXAPARIN 40 MG/0.4 ML SYRINGE SUBCUT (08:31)
[2024-05-22] MEDS: LOSARTAN 25 MG TABLET PO (08:31)
[2024-05-22] MEDS: HYDROCODONE/ACET 10/325 TABLET 1 TAB PO (09:04)
--- NOTE | 2024-05-22 09:04 | PC.WOUNDPHOT ---
Late entry: photos taken by Chase FORMAN, 05/20 at 1730
--- NOTE | 2024-05-22 10:18 | OT.IP.EVAL ---
Past Medical History (Last Updated 09/19/20 @ 08:22 by Joel Ivy DO) Brain tumor COPD (chronic obstructive pulmonary disease) Diabetes Diastolic heart failure Lymphedema Non-ST elevated myocardial infarction Surgical History (Last Updated 09/19/20 @ 08:23 by Joel Ivy DO) No pertinent past surgical history Occupational Therapy Inpatient Evaluation/Re-Eval M1 PT/OT-IP Prior Functional Status Start: 05/21/24 11:39 Freq: NEEDED Status: Active Protocol: Document 05/22/24 10:49 CGR (Rec: 05/22/24 11:11 CGR [id number]) Medical Review Prior Functional Status Medical History Reviewed Yes Communication Unsure baseline diet Mobility and Gait Pt uses rollator at baseline Activities of Daily Living and IADL's Pt states that she was IND and taking care of herself living in an apartment in [place]. Pt states that her passed recently and then she was at [facility] and returned same day and now back at [facility]. In that time she was evicted from her apartment and she says she currently does not have a home . Social History Household Members other Living Arrangements Other Home Equipment Four Wheel Walker Employment Status Retired Additional Social History Comment Pt states that she was IND and taking care of herself living in an apartment in [place]. Pt states that her passed recently and then she was at [facility] and returned same day and now back at [facility]. In that time she was evicted from her apartment and she says she currently does not have a home . M2 OT-IP Current Condition Start: 05/22/24 10:48 Freq: Status: Active Protocol: Document 05/22/24 10:49 CGR (Rec: 05/22/24 11:11 CGR [id number]) Occupational Therapy Current Condition Current Condition Evaluation Date 05/22/24 Treatment Diagnosis readmit d/t pt refusing [facility] rehab. Previously sepsis Diagnosis Onset Date 05/20/24 M3 OT- IP Subjective and Pain Start: 05/22/24 10:48 Freq: Status: Active Protocol: Document 05/22/24 10:49 CGR (Rec: 05/22/24 11:11 CGR [id number]) OT- Subjective Occupational Therapy Visit Type Type Initial Evaluation Visit Start Time 09:54 Visit Stop Time 10:18 Notes Pt needs extra time to voice her concerns regarding her current situation. OT Pain Assessment Pain Present Pain Present Denied Pain M4 OT- IP ADL's Start: 05/22/24 10:48 Freq: Status: Active Protocol: Document 05/22/24 10:49 CGR (Rec: 05/22/24 11:11 CGR [id number]) OT [id number] Comments OT Self-Feeding Comments not meal time OT ADL-Grooming Comments OT Grooming Comments Pt declined to perform, requesting to talk with her son. OT ADL-Oral Care Comments Oral Care Comments Pt declined to perform, requesting to talk with her son. OT ADL-Dressing General Eval Lower Body Dressing Ability Total Assistance Areas Needing Assistance Socks Comments OT Dressing Comments Pt states that she hasn't been putting on her socks. OT ADL-Toileting Comments OT Toileting Comments Pt declined to perform OT ADL-Bathing Comments OT Bathing Comments not performed M5 OT- IP IADL's Start: 05/22/24 10:48 Freq: Status: Active Protocol: Document 05/22/24 10:49 CGR (Rec: 05/22/24 11:11 CGR [id number]) OT-Instrumental Activities of Daily Living Deficits IADL Deficits Identified Deficits Home Safety Awareness Awareness of Need for Assistance at Home Decreased Awareness Ability to Problem Solve Emergency Able to Problem Solve Situations Home Safety Comments Pt's recent SLUMS performed on 05/19/24 she scored 13/30. Medication Management Medication Management Comments Concerns regarding her ability to perform safely. Money Management Money Management Comments Concerns regarding her ability to perform safely. Meal Preparation Meal Preparation Comments Concerns regarding her ability to perform safely. Instructional Support Specialist Instructional Support Specialist Comments Concerns regarding her ability to perform safely. Driving Driving Comments Unsure if patient drives at baseline. M6 OT- IP Functional Cognition Start: 05/22/24 10:48 Freq: Status: Active Protocol: Document 05/22/24 10:49 CGR (Rec: 05/22/24 11:11 CGR [id number]) Cognitive Factors Limiting Selfcare Function Cognitive Ability Level of Alertness Alert Patient Orientation Name,Age,Birthday,Month,Date, Year,Day of Week,Place, Situation Attention Span Ability Capable of Focused Attention, Unable to Sustain Attention Ability to Follow Commands Able to Follow One Step Commands with Increased Time, Able to Follow One Step Commands with Repetition OT- Vision and Hearing OT- Hearing Assessment OT- Hearing Assessment WFL OT- Vision Assessment Visual Acuity WFL Visual Attentiveness WFL Occular Pursuits WFL Visual Convergence WFL M7 OT- IP Mobility and Balance Start: 05/22/24 10:48 Freq: Status: Active Protocol: Document 05/22/24 10:49 CGR (Rec: 05/22/24 11:11 CGR [id number]) OT- Bed Mobility Assessment Supine to Sit Supine to Sit Assist Standby Assistance,Bedrails Scooting Scooting to Edge of Bed Standby Assistance,Bedrails OT-Transfer Assessment Sit to and From Stand Sit to and from Stand Contact Guard Assistance Transfers Transfer Ability Contact Guard Assistance Technique Transfer Destination Bed,Chair Transfer Technique Stand Step Pivot Devices Transfer Assistive Devices Gait Belt,Front Wheeled Walker Comments Mobility Comments Pt needed extra time for performing bed mobility but was able to do with SBA. Pt stood and transered to chair with CGA and some SOB but recovered quickly. Pt declined further activity. OT- Balance Assessment Sitting Balance and Reactions Static Sitting Balance Ability Good Dynamic Sitting Balance Ability Fair M8 OT- IP Objective Assessments Start: 05/22/24 10:48 Freq: Status: Active Protocol: Document 05/22/24 10:49 CGR (Rec: 05/22/24 11:11 CGR [id number]) OT Gross Range of Motion Upper Extremity Range of Motion Assessment Within Functional Limits OT Strength Upper Extremity Strength Assessment Within Functional Limits Comments Strength Comments Grossly 4-/5 throughout. Pt states that her right arm inconsistently will drop losing all strength but this is her baseline that has been ongoing for years. OT- Coordination Assessment Upper Extremity Finger to Nose Test Within Functional Limits Finger Tapping Test Within Functional Limits OT-Muscle Tone Assessment Muscle Tone WNL Yes OT Sensation Assessment Edema Edema Absent M9 OT- IP Assessment and Plan Start: 05/22/24 10:48 Freq: Status: Active Protocol: Document 05/22/24 10:49 CGR (Rec: 05/22/24 11:11 CGR [id number]) OT Summary Assessment and Plan Potential Rehabilitation Potential Good Analytic Complexity at Evaluation Moderate Summary OT Impairments Strength,Balance,Functional Cognition,Functional Mobility, Grooming,Dressing,Toileting, Bathing,Toilet Transfers, Shower Transfers,Activity Tolerance Progress Towards Goals Progressing Toward Goals Assessment Summary Pt presents as a moderate complexity evaluation s/p readmit because pt refused the SNF when she arrived at the facility. Pt is progressing well and will likely continue to progress with further therapies. Pt appears reluctant to agree to SNF but son appears to want SNF. Will continue to follow. Goals Grooming Goal Independent Dressing Goal Independent Toileting Goal Independent Bathing Goal Independent Toilet Transfer Goal Independent Shower Transfer Goal Independent Days to Meet Goals 10 Frequency of Treatment Other frequency 5x per week Treatment Plan OT Treatment Plan ADL Training,Functional Cognition Training,Functional Mobility,Patient/Family Education,Discharge Planning Other Treatment Recommendations and Next Up to bathroom if able. Treatment Focus Discharge Recommendations OT Discharge Recommendations SNF Rehab,[facility] Transportation Needs at Discharge Private Vehicle
[2024-05-22] MEDS: MAGNESIUM CHLORIDE 64 MG TABLET 128 MG PO (11:11)
--- NOTE | 2024-05-22 11:16 | PM.DS.1 ---
History of Present Illness History of Present Illness Chief complaint: Resp Problem Narrative: From H&P: This is a 78-year-old female with a past medical history of HFpEF, VTE on Xarelto, DM2, obesity, COPD, HTN, HLD, tobacco use, PTSD who was admitted in February of 2024 to [facility] with altered mentation and treated for a UTI, pneumonia, influenza, and C diff infection. Patient was discharged from the hospital to [facility] where she did not like it and the care she received there. She was just discharged this morning to [facility] facility at [facility] after an admission here for acute encephalopathy, and another urinary tract infection which had improved. When she got there she did not like it, and was sent back to the emergency room, though I have her varied stories from different parties regarding what happened there. The patient denies any current complaints. She was recommended for mcc facility, however accepting facility was no longer willing to accept her back. With this she was readmitted to look for possible placement at another nursing facility. Discharge Providers Provider Date of admission: 05/20/24 15:52 Discharge Date: 05/22/24 Primary care physician: George Sood MD Consults: 05/20/24 14:02 Consult to [facility] [place] Hand Developer Stat Comment: Hand Developer Consult needed for:: Other reason (Comment) 05/20/24 17:58 Consult to [facility] [place] Hand Developer Routine Comment: Hand Developer Consult needed for:: Homeless 05/21/24 11:35 Consult to Occupational Therapy Evaluate & Treat Comment: Physician Instructions: Evaluate and treat Consult to Physical Therapy Evaluate & Treat Comment: Physician Instructions: Evaluate and Treat Discharge provider: Rafi Hollis MD Summary Hospital Course Discharge Diagnosis: 1. Sepsis secondary to acute cystitis with acute respiratory failure with hypoxia, acute metabolic encephalopathy. Improving from recent admission. - hx of pseudomonas at [facility] in the urine, cultures with Klebsiella here last admission, though she previously have pseudomonas grow late at [facility] this did not happen this admission. Transitioned to PO ciprofloxacin 05/19 with end date for antibiotics on 05/23. No significant prolonged Qt on tele despite cipro and seroquel additions. - Continued ciprofloxacin until 05/23 here this admission. - she was weaned off of supplemental oxygen, some drops overnight consider outpatient sleep study if patient tolerates. -restart PT/OT -intermittent O2 use, likely underlying AMILCAR as predominantly this occurs when she is asleep. recommend outpatient sleep study. 2. Diastolic heart failure, chronic and stable. - TTE at [facility] 12/2023 with EF 60-65%, no indication for repeat. - Okay to resume home furosemide 40 mg daily, held last admit with sepsis. Now improved. 3. Acute on chronic anemia, stable, - slow downtrend in h/h, but essentially stable since last admission where she received 2U PRBC transfusion for a Hg of 6.7. Her anticoagulation for DVT in 2020 was stopped last admission. Will continue to follow CBC. 4. HTN, stable. - resume home losartan. 5. PTSD, stable. - resume home medications - started seroquel last admission for help with this 6. COPD, stable. - replaced home inhalers with formulary nebulizer therapies, discussed with RT and will start duonebs and pulmicort for now. No changes to previous inhalers. 7. Chronic cognitive impairment, stable. - SLUMS at [facility] evaluation was 01/04. with therapy 05/19. 8. Hx VTE, stable. - on chronic rivaroxaban, stopped last admission. VTE was in 2020 per [facility] documentation. 9. Nicotine dependence, active. - has cut down, still intermittent smoking - consider nicotine patch. 10. Obesity, active. - The patient is at much higher risk for medical and surgical complications because of their obesity. This increases the difficulty and complexity of medical and surgical interventions and increases the chances of poor outcomes such as morbidity and mortality. Hospital Course: She was admitted and continued with IV fluids and Cipro. She had discharge planning soon we will ultimately be discharged to [facility] living today. Her family was involved in discharge planning and the patient was in agreement. Status at Discharge Cognitive/behavioral status at discharge: oriented Functional status at discharge: uses cane/walker Overall status at discharge: patient is back to baseline Time Spent with Patient Time spent: Greater than 30 minutes Exam Vital Signs (past 8 hours): - 05/22/24 08:00 05/22/24 08:00 05/22/24 08:30 Temperature 98.3 F Pulse Rate 87 87 Respiratory Rate 21 Blood Pressure 108/52 L 108/52 L Pulse Oximetry 93 93 Oxygen Delivery Method Room Air 05/22/24 08:31 Temperature Pulse Rate 87 Respiratory Rate Blood Pressure 108/52 L Pulse Oximetry Oxygen Delivery Method Oxygen Delivery Method Room Air Oxygen Flow Rate 0 Narrative Exam Narrative: NAD, alert and oriented. Fluent speech. Lungs are clear, normal rate and effort. Heart is regular, no murmur gallop or rub. Abdomen is soft, non distended. Extremities are free of edema. Objective Labs 05/22/24 05:30 05/22/24 05:30 Labs: Laboratory Results - last 24 hr 05/22/24 05:30 WBC 10.9 RBC 3.42 L Hgb 9.0 L Hct 28.1 L MCV 82.2 MCH 26.4 MCHC 32.1 RDW 15.9 H Plt Count 354 Neut % (Auto) 69.6 Lymph % (Auto) 18.1 L [place] % (Auto) 7.8 Eos % (Auto) 3.8 Baso % (Auto) 0.7 Neut # (Auto) 7600 H Lymph # (Auto) 2000 [place] # (Auto) 900 Eos # (Auto) 400 Baso # (Auto) 100 Sodium 139 Potassium 3.9 Chloride 108 H Carbon Dioxide 24 BUN 18 H Creatinine 0.65 Estimated GFR > 60 BUN/Creatinine Ratio 27.7 H Glucose 97 Calcium 8.6 Magnesium 1.7 PFSH Medical History COPD (chronic obstructive pulmonary disease) Diastolic heart failure Brain tumor Diabetes Non-ST elevated myocardial infarction Lymphedema Surgical History No pertinent past surgical history Social History household members: other Smoking Status: Former smoker alcohol intake: never Discharge Assessment & Plan Assessment and Plan Assessment: 1. UTI, present on admission and improved. Plan of Treatment: Discharge to [facility]. Meagan amaya. to finish her treatment course on May 23. Discharge Plan Discharge Plan Patient Disposition: Assisted Living Transfer to: [facility] Transportation: Private vehicle Provider Discharge Comment: Stable for discharge to [facility]. Discharge orders & Medications Discharge Orders: Discharge (Order); Ordered 05/22/24 Ordered By: Rafi Hollis Prescriptions: New ciprofloxacin HCl 250 mg Tablet 500 mg PO 0700,2100 Qty: 3 0RF Continued metformin 500 mg tablet 500 mg PO DAILY Rx Instructions: Take 500mg daily with breakfast spironolactone 25 mg tablet 12.5 mg PO DAILY Rx Instructions: Take 1/2 tablet by mouth in the morning daily potassium chloride 20 mEq tablet,ER particles/crystals 20 meq PO DAILY Rx Instructions: Take 1 tablet by mouth daily albuterol sulfate 90 mcg/actuation HFA aerosol inhaler 90 mcg INHALATION Q4H PRN (Reason: Wheezing) Patient Comments: [NO ORIGINAL SIG] escitalopram oxalate 20 mg tablet 20 mg PO DAILY buspirone 5 mg tablet 5 mg PO BID Rx Instructions: Take 1 tablet by mouth twice daily fluticasone propion-salmeterol 1 puff inhalation BID Rx Instructions: 100-50MCG/ACT 1 inhalation inhale orally two times a day for Copd Inhale 1 puff 2x a day rinse mouth with water after use losartan 25 mg tablet 25 mg PO DAILY Rx Instructions: Take 25 mg tablet by mouth daily atorvastatin 40 mg tablet 40 mg PO BEDTIME Rx Instructions: Give 40 mg by mouth at bedtime acetaminophen 325 mg Tablet 325 mg PO Q6H PRN (Reason: Mild Pain (Scale Score 1-4)) Rx Instructions: Take 1 tablet by mouth every 6 hours as needed for mild pain carvedilol 6.25 mg tablet 12.5 mg PO BID Patient Comments: [NO ORIGINAL SIG] Rx Instructions: Give 2 tablet by mouth two times daily diphenhydramine HCl [Allergy (diphenhydramine)] 25 mg Tablet 25 mg PO Q12H PRN (Reason: Itching) Rx Instructions: Take 1 tablet by mouth every 12 hours for itching quetiapine 25 mg Tablet 25 mg PO BEDTIME Qty: 30 0RF pantoprazole 40 mg Tablet,Delayed Release (Dr/Ec) 40 mg PO 0700 Qty: 30 0RF hydrocodone-acetaminophen 10-325 mg tablet 1 tab PO Q6H PRN (Reason: Moderate Pain (Scale Score 5-6)) 7 Days Qty: 20 0RF Rx Instructions: Give 1 tablet by mouth every 6 hours as needed for moderate pain furosemide 40 mg tablet 40 mg PO DAILY Rx Instructions: Take 1 tablet by mouth once daily Discontinued ciprofloxacin HCl 500 mg tablet 500 mg PO 0700,2100 3 Days Qty: 6 0RF Follow up/Referrals: George Sood MD [Non-Staff] - Skin/Wound/Dressing Care Report to your healthcare provider any signs of infection, such as:: chills, fever and increased pain Visit Report/Discharge Packet Instructions: DI for Urinary Tract Infection (UTI) Stand Alone Forms: Patient Portal/API, Stroke Signs & Symptoms Discharge Data Primary Care Provider: Jorge Hollis Attending Provider: Joel Ivy Admroberto Date/Time: 05/20/24 15:52
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
--- NOTE | 2024-05-22 11:51 | PT-IP ANOTE ---
PT checks in with nsg who reports that pt will d/c back to [facility] today.
== END 2024-05-22 12:52 ==
LOC: ED 13:40 → AC 15:53
PROVIDERS: Admitting Provider Internal Medicine; Emergency Provider Emergency Medicine; PCP Physician Assistant; Referring Provider Emergency Medicine; Visit Provider Internal Medicine
DX: A41.9 Sepsis, unspecified organism (principal); N30.00 Acute cystitis without hematuria; F41.9 Anxiety disorder, unspecified; G93.41 Metabolic encephalopathy; J96.01 Acute respiratory failure with hypoxia; I11.0 Hypertensive heart disease with heart failure; I50.32 Chronic diastolic (congestive) heart failure; J44.9 Chronic obstructive pulmonary disease, unspecified; E78.5 Hyperlipidemia, unspecified; E11.9 Type 2 diabetes mellitus without complications; F43.10 Post-traumatic stress disorder, unspecified; G31.84 Mild cognitive impairment of uncertain or unknown etiology; E66.9 Obesity, unspecified; Z79.84 Long term (current) use of oral hypoglycemic drugs; Z79.01 Long term (current) use of anticoagulants; F17.210 Nicotine dependence, cigarettes, uncomplicated
CPT/HCPCS: 36415; 80048; 83735; 85025; 94760; 96372; 97162; 97166; 97530; 99284; G0378; J1650

== ENCOUNTER 2024-06-13 17:20 | Emergency (ER) | payer MEDICARE, MEDICAID, SELFPAY ==
[2024-05-20 17:46] VITALS: BMI 33.7
[2024-06-13] VITALS (12 sets, daily range): BP systolic 127–168; BP diastolic 59–69; PULSE 84–93; RESP 16–24; TEMP 37.6; O2SAT 91–95; BMI 32.5
--- NOTE | 2024-06-13 17:13 | DI.CT.S_ITS ---
PROCEDURE: CT CERVICAL SPINE WO CON INDICATIONS: fall on thinners TECHNIQUE: Noncontrast 3 mm thick sections acquired from the skull base to the T4 level. Sagittal and coronal reformats were then constructed. For radiation dose reduction, the following was used: automated exposure control, adjustment of mA and/or kV according to patient size. COMPARISON: None. FINDINGS: Image quality: Excellent. Bones: No fractures or dislocations. Loss of disc height, degenerative endplate changes and bilateral uncovertebral hypertrophic changes are noted throughout cervical spine more notably at C5-6 and C6-7 levels. Visualized superior ribs are intact. Soft tissues: Prevertebral soft tissues are normal in thickness. No paravertebral hematomas. No apical pneumothoraces. IMPRESSION: No displaced fracture or traumatic subluxation. Multilevel spondylitic changes throughout cervical spine. Dictated by: Shashi Mtz M.D. on 06/13/2024 at 17:45 Approved by: Shashi Mtz M.D. on 06/13/2024 at 17:46
--- NOTE | 2024-06-13 17:13 | DI.CT.S_ITS ---
PROCEDURE: CT FACIAL BONES WO CON INDICATIONS: fall on thinners TECHNIQUE: Noncontrast 2.5 mm thick axial images acquired from the mandible through the frontal sinuses, with coronal and sagittal reformatting. For radiation dose reduction, the following was used: automated exposure control, adjustment of mA and/or kV according to patient size. COMPARISON: None. FINDINGS: Image quality: Excellent. Bones and teeth: Orbital ayoub are intact. Sinus ayoub show no fracture or deformity. Nasal bones and septum are intact. Visualized portions of the mandible demonstrate no fractures or subluxation. Zygomatic arches are intact. Pterygoid plates are intact. Visualized portions of the skull base and auditory canals are intact. Sinuses: There is mucosal thickening in bilateral ethmoid sinuses. Rest of the paranasal sinuses are well aerated. Mastoid air cells are aerated. Soft tissues: Right frontal scalp swelling and hematoma is seen. No enlarged lymph nodes. No soft tissue lacerations or debris. Vascular: Visualized vascular structures appear normal in the absence of contrast. Bony vascular foramina and canals are intact. IMPRESSION: 1. Right frontal scalp hematoma and swelling. No acute facial bone or nasal bone fracture. Bilateral orbital ayoub and orbital globes are intact. 2. Bilateral ethmoid sinusitis. Bilateral mastoids are well aerated. Dictated by: Shashi Mtz M.D. on 06/13/2024 at 17:38 Approved by: Shashi Mtz M.D. on 06/13/2024 at 17:43
--- NOTE | 2024-06-13 17:13 | DI.CT.S_ITS ---
PROCEDURE: CT HEAD/BRAIN WO CON INDICATIONS: fall on thinners TECHNIQUE: Noncontrast 4.5 mm thick angled axial sections acquired from the foramen magnum to the vertex, with coronal and sagittal reformats. For radiation dose reduction, the following was used: automated exposure control, adjustment of mA and/or kV according to patient size. COMPARISON: [facility], CT, CT HEAD/BRAIN WO CON, 05/17/2024, 12:49. FINDINGS: Image quality: Diagnostic. CSF spaces: Basal cisterns are patent. No extra-axial fluid collections. The ventricles are symmetric in size and shape. Brain: No intracranial bleeds or masses. There is cerebral volume loss for age, with resultant ventricular and sulcal prominence. There are periventricular and deep white matter chronic small vessel ischemic changes. There is intracranial internal carotid artery atherosclerosis. Skull and face: Right frontal scalp hematoma and swelling with small amount of subcutaneous emphysema. No acute skull fracture. Sinuses: Mucosal thickening in bilateral ethmoid sinuses are seen. Bilateral mastoid air cells are well aerated. IMPRESSION: 1. No acute intracranial pathology. 2. Right frontal scalp hematoma and swelling with subcutaneous emphysema. No acute skull fracture. Mild bilateral ethmoid sinusitis. Dictated by: Shashi Mtz M.D. on 06/13/2024 at 17:43 Approved by: Shashi Mtz M.D. on 06/13/2024 at 17:45
--- NOTE | 2024-06-13 17:30 | DI.RAD.S_ITS ---
PROCEDURE: XR CHEST 1V INDICATIONS: chest pain TECHNIQUE: One view of the chest was acquired. COMPARISON: [facility], CR, XR CHEST 1V, 05/17/2024, 11:35. [facility], CR, XR CHEST 2V, 11/01/2018, 15:05. [facility], CR, XR CHEST 2V, 10/09/2018, 5:27. [facility], CR, CHEST 2 VIEW, 11/14/2014, 16:01. FINDINGS: Surgical changes and devices: None. Lungs and pleura: Mild perihilar opacification extending to the medial lung bases. No pleural effusions or pneumothorax. Mediastinum: Mediastinal contours appear normal. Cardiomegaly. Bones and chest wall: No suspicious bony lesions. Overlying soft tissues appear unremarkable. IMPRESSION: Cardiomegaly and mild pulmonary edema, likely representing a congestive heart failure exacerbation. Dictated by: Layton Marshall M.D. on 06/13/2024 at 18:06 Approved by: Layton Marshall M.D. on 06/13/2024 at 18:06
--- NOTE | 2024-06-13 17:30 | EKG_ITS ---
[facility] [address] [place] [address] Test Date: 2024-06-13 Pat Name: Chetna Arellano Department: Room: Gender: Female Strip Stamp Straightener: ALEJANDRO : 1945 Requested By: Order Number: [id number] Reading MD: Joel Ivy Measurements Intervals [place] Rate: 90 P: CT: QRS: -13 QRSD: 72 T: 29 QT: 392 QTc: 479 Interpretive Statements Accelerated Junctional rhythm with premature ventricular complexes or fusion complexes Nonspecific ST and T wave abnormality Prolonged QT Electronically Signed On 06-19-2024 18:54:28 PDT by Joel Ivy
[2024-06-13 17:51] LABS: Add Manual Diff / Slide Review NO; Basophils Absolute Auto 100 /uL (0-100); Basophils Percent Auto 1.3 % (0-2); Eosinophils Absolute Auto 200 /uL (0-450); Eosinophils Percent Auto 2.8 % (2-4); Lymphocytes Absolute Auto 1600 /uL (1100-4500); Lymphocytes Percent Auto 18.6 % (25-40); Mean Corpuscular Hemoglobin 24.5 PG (26-34); Mean Corpuscular Volume 76.5 fL (80-100); Monocytes Absolute Auto 1300 /uL (0-900); Monocytes Percent Auto 14.8 % (3-14); Neutrophils Absolute Auto 5500 /uL (1500-7000); Neutrophils Percent Auto 62.5 % (50-75); Platelet Count 398 X10^3/uL (150-400); Red Blood Cell Count 3.27 X10^6/uL (4.0-5.2); Red Cell Distribution Width 16.5 % (11.6-14.8); White Blood Cell Count 8.8 X10^3/uL (4.5-11.0)
[2024-06-13 17:54] LABS: INR 1.2 (0.9-1.3); Prothrombin Time 14.1 SECONDS (9.4-12.5)
[2024-06-13 17:57] LABS: PTT Partial Thromboplastin Tim 38 SECONDS (25.1-36.5)
[2024-06-13 17:59] LABS: Alanine Aminotransferase 15 IU/L (<35); Albumin 3.8 g/dL (3.5-5.0); Albumin Globulin Ratio 0.9 (1.0-2.8); Alkaline Phosphatase 72 U/L (38-126); Aspartate Aminotransferase 23 IU/L (14-36); BUN Creatinine Ratio 32.7 (6-22); Bilirubin Total 0.4 mg/dL (0.2-1.3); Blood Urea Nitrogen 32 mg/dL (7-17); Carbon Dioxide 24 mmol/L (22-32); Chloride 104 mmol/L (98-107); Creatine Kinase 52 U/L (30-135); Estimated Glomerular Filt Rate 58 mL/min (>60); Globulin 4.3 g/dL (1.7-4.1); Glucose 112 mg/dL (80-110); HEMOLYSIS < 15 (0-50); Lipase 113 U/L (23-300); Magnesium 2.1 mg/dL (1.6-2.3); Potassium 4.6 mmol/L (3.4-5.1); Sodium 137 mmol/L (137-145); Total Protein 8.1 g/dL (6.3-8.2)
--- NOTE | 2024-06-13 18:01 | EKG_ITS ---
[facility] [address] [place] [address] Test Date: 2024-06-13 Pat Name: Chetna Arellano Department: Room: Gender: Female Roadway Technician: ALEJANDRO : 1945 Requested By: Order Number: [id number] Reading MD: Joel Ivy Measurements Intervals [place] Rate: 91 P: 15 FL: 158 QRS: -15 QRSD: 70 T: 13 QT: 392 QTc: 482 Interpretive Statements Sinus rhythm with premature ventricular complexes or fusion complexes Nonspecific ST and T wave abnormality Electronically Signed On 06-19-2024 18:54:29 PDT by Joel Ivy
[2024-06-13 18:10] LABS: NT-proBNP (BNP-Adult 18+) 1450 pg/mL (<450); Troponin I < 0.012 ng/mL (0.01-0.034)
--- NOTE | 2024-06-13 18:18 | DI.RAD.S_ITS ---
PROCEDURE: XR ANKLE RT MIN 3V INDICATIONS: fall TECHNIQUE: 3 views of the ankle were acquired. COMPARISON: None. FINDINGS: Bones: There is osteopenia. No gross acute fractures or dislocations. Osteoarthritic changes are noted in midfoot and hindfoot joints. Ankle mortise is normally aligned. No suspicious bony lesions. Soft tissues: Significant lateral ankle soft tissue swelling is seen. No tibiotalar joint effusion. Achilles tendon appears normal. IMPRESSION: No gross acute ankle fracture or dislocation. Osteopenia. Lateral ankle soft tissue swelling. Ankle joint osteoarthritis. Dictated by: Shashi Mtz M.D. on 06/13/2024 at 19:15 Approved by: Shashi Mtz M.D. on 06/13/2024 at 19:18
--- NOTE | 2024-06-13 18:20 | PC.NURSE ---
Oxygen saturation at 86-87% on RA. Pt placed on 2L via NC. Oxygen now at 92% on 2L NC.
--- NOTE | 2024-06-13 21:04 | ED_ITS ---
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 Patient states that she fell out of her wheelchair, she states that she is not really sure how this happened however she denies any loss of consciousness, at time of evaluation GCS 15, patient complaining of left ankle pain. Patient states that she is wheelchair at baseline, family members at bedside state that she always has difficulty standing/ambulating, states that any time she tries to get up by herself she does fall. Patient not complaining of any other symptoms at this time. Related Data Home Medications Medication Instructions Recorded Confirmed furosemide 40 mg tablet 40 mg PO DAILY Fluid Retention 09/19/20 05/20/24 acetaminophen 325 mg tablet 325 mg PO Q6H PRN Mild Pain (Scale 05/17/24 05/20/24 Score 1-4) albuterol sulfate 90 mcg/actuation 90 mcg inhalation Q4H PRN Wheezing 05/17/24 05/20/24 aerosol inhaler atorvastatin 40 mg tablet 40 mg PO BEDTIME High Cholesterol 05/17/24 05/20/24 buspirone 5 mg tablet 5 mg PO BID Anxiety 05/17/24 05/20/24 carvedilol 6.25 mg tablet 12.5 mg PO BID High Blood Pressure 05/17/24 05/20/24 diphenhydramine HCl 25 mg tablet 25 mg PO Q12H PRN Itching 05/17/24 05/20/24 (Allergy (diphenhydramine)) escitalopram oxalate 20 mg tablet 20 mg PO DAILY Depression 05/17/24 05/20/24 fluticasone propion-salmeterol 1 puff inhalation BID COPD 05/17/24 05/20/24 losartan 25 mg tablet 25 mg PO DAILY High Blood Pressure 05/17/24 05/20/24 metformin 500 mg tablet 500 mg PO DAILY Diabetes 05/17/24 05/20/24 potassium chloride 20 mEq 20 meq PO DAILY Low Potassium 05/17/24 05/20/24 tablet,extended release(part/cryst) spironolactone 25 mg tablet 12.5 mg PO DAILY High Blood 05/17/24 05/20/24 Pressure Previous Rx's Medication Instructions Recorded hydrocodone 10 mg-acetaminophen 1 tab PO Q6H PRN Moderate Pain 05/20/24 325 mg tablet (Scale Score 5-6) 7 days #20 tabs pantoprazole 40 mg tablet,delayed 40 mg PO 0700 #30 tabs 05/20/24 release quetiapine 25 mg tablet 25 mg PO BEDTIME #30 tabs 05/20/24 ciprofloxacin HCl 250 mg tablet 500 mg (2 x 250 mg) PO 0700,2100 05/22/24 #3 tabs Allergies Allergy/AdvReac Type Severity Reaction Status Date / Time Iodinated Contrast Media Allergy Mild Verified 05/20/24 13:40 [Iodinated Contrast Media - IV Dye] Sulfa (Sulfonamide Allergy Mild Verified 05/20/24 13:40 Antibiotics) amoxicillin [From Augmentin] Allergy Verified 05/20/24 13:40 clavulanic acid Allergy Verified 05/20/24 13:40 [From Augmentin] Review of Systems Review of Systems Narrative: General: Fall, Denies fever, chills, weight loss HEENT: Denies headache, eye drainage, eye irritation, head trauma, sore throat, voice change Cardiovascular: Denies any chest pain, palpitations, tachycardia Respiratory: Denies any shortness of breath, cough, wheeze, stridor GI/: Denies any abdominal pain, nausea, vomiting, diarrhea, bright red blood per rectum, melanotic stools, urinary frequency, urinary retention, dysuria, hematuria MSK: Denies any joint pain, muscle pains, swelling Skin: Denies any rashes, lesions, discoloration Neuro: Denies any headache, lightheadedness, dizziness, fainting, weakness Psych: Denies SI/HI Patient History Medical History COPD (chronic obstructive pulmonary disease) Diastolic heart failure Brain tumor Diabetes Non-ST elevated myocardial infarction Lymphedema Surgical History No pertinent past surgical history Social History household members: other Smoking Status: Current some day smoker alcohol intake: never Smoking Status: Current some day smoker tobacco type: cigarettes alcohol intake frequency: holidays/special occasions only Exam Narrative Exam Narrative: General: Cooperative, well-developed, not in acute distress HEENT: Hematoma noted to the top right frontal region of forehead, not actively bleeding no palpable step-offs, PERRLA, normal sclera, eyelids normal Neck: Active full range of motion, atraumatic Chest: Normal to inspection, negative crepitus, no overlying erythema ecchymosis Respiratory: Normal respiratory effort, not in acute respiratory distress, clear to auscultation bilaterally negative cough, wheeze, tachypnea, rhonchi, rales Cardiology: Regular rate rhythm negative gallop, murmur, rubs GI/: No tenderness to palpation, soft, non rigid, normal to inspection, exam deferred MSK: Full active range of motion in all 4 extremities, atraumatic, no tenderness to palpation of any bony prominences, patient with +2 pitting bilateral lower extremity edema, patient stating this is baseline Skin: No rashes or lesions noted Neuro: Alert awake oriented x3, moves all 4 extremities spontaneously, cranial nerves intact, able to answer all questions appropriately follows commands appropriately Psych: Cooperative, negative suicidal or homicidal ideations Initial Vital Signs Initial Vital Signs: Vital Signs Pulse Rate 88 06/13/24 17:22 Respiratory Rate 16 06/13/24 17:22 Blood Pressure 136/62 06/13/24 17:22 Pulse Oximetry 93 06/13/24 17:22 Oxygen Delivery Method Room Air 06/13/24 17:22 Course Orders Ordered: ED Orders 06/13/24 17:13 CT cervical spine wo con Stat CT facial bones wo con Stat CT head/brain wo con Stat 06/13/24 17:30 XR chest 1V Stat EKG-12 Lead Stat 06/13/24 17:38 Complete Blood Count AUTO DIFF Stat Comprehensive Metabolic Panel Stat Lipase Stat Magnesium Stat NT-proBNP (BNP-Adult 18+) Stat PTT Partial Thromboplastin Wolf Stat Prothrombin Time INR Stat Troponin & CK Cardiac Panel Stat 06/13/24 18:18 XR ankle RT min 3V Stat Vital Signs Vital signs: Vital Signs - 8 hr 06/13/24 17:22 06/13/24 17:27 06/13/24 17:28 Pulse Rate 88 85 86 Respiratory Rate 16 21 20 Blood Pressure 136/62 Pulse Oximetry 93 93 95 Oxygen Delivery Method Room Air 06/13/24 17:28 06/13/24 17:30 06/13/24 17:30 Pulse Rate 84 Respiratory Rate 21 Blood Pressure 127/60 131/62 Pulse Oximetry 95 Oxygen Delivery Method 06/13/24 18:00 06/13/24 18:00 06/13/24 18:30 Pulse Rate 89 92 H Respiratory Rate 21 Blood Pressure 150/65 H Pulse Oximetry 91 95 Oxygen Delivery Method 06/13/24 18:31 06/13/24 18:31 06/13/24 19:00 Pulse Rate 92 H 93 H Respiratory Rate 24 Blood Pressure 168/68 H Pulse Oximetry 93 94 Oxygen Delivery Method 06/13/24 19:00 06/13/24 19:30 06/13/24 19:30 Pulse Rate 90 Respiratory Rate 23 Blood Pressure 136/63 143/63 H Pulse Oximetry 95 Oxygen Delivery Method 06/13/24 20:00 06/13/24 20:00 Pulse Rate 87 Respiratory Rate 21 Blood Pressure 147/66 H Pulse Oximetry 94 Oxygen Delivery Method MDM - Fall Differential Diagnosis Differential diagnosis: Likely other (Closed head injury, intracranial hemorrhage, fracture, ACS pneumonia electrolyte abnormality CHF) Lab Data 06/13/24 17:38 06/13/24 17:38 Labs: Lab Results 06/13/24 Range/Units 17:38 WBC 8.8 (4.5-11.0) X10^3/uL RBC 3.27 L (4.0-5.2) X10^6/uL Hgb 8.0 L (12.0-16.0) g/dL Hct 25.0 L (36-46) % MCV 76.5 L (80-100) fL MCH 24.5 L (26-34) PG MCHC 32.0 (30-36) % RDW 16.5 H (11.6-14.8) % Plt Count 398 (150-400) X10^3/uL Neut % (Auto) 62.5 (50-75) % Lymph % (Auto) 18.6 L (25-40) % Yancey % (Auto) 14.8 H (3-14) % Eos % (Auto) 2.8 (2-4) % Baso % (Auto) 1.3 (0-2) % Neut # (Auto) 5500 (7219-0274) /uL Lymph # (Auto) 1600 (8590-2372) /uL Yancey # (Auto) 1300 H (0-900) /uL Eos # (Auto) 200 (0-450) /uL Baso # (Auto) 100 (0-100) /uL PT 14.1 H (9.4-12.5) SECONDS INR 1.2 (0.9-1.3) APTT 38 H (25.1-36.5) SECONDS Sodium 137 (137-145) mmol/L Potassium 4.6 (3.4-5.1) mmol/L Chloride 104 (98-107) mmol/L Carbon Dioxide 24 (22-32) mmol/L BUN 32 H (7-17) mg/dL Creatinine 0.98 (0.52-1.04) mg/dL Estimated GFR 58 L (>60) mL/min BUN/Creatinine Ratio 32.7 H (6-22) Glucose 112 H (80-110) mg/dL Calcium 9.0 (8.4-10.2) mg/dL Magnesium 2.1 (1.6-2.3) mg/dL Total Bilirubin 0.4 (0.2-1.3) mg/dL AST 23 (14-36) IU/L ALT 15 (<35) IU/L Alkaline Phosphatase 72 (38-126) U/L Total Creatine Kinase 52 (30-135) U/L Troponin I < 0.012 (0.01-0.034) ng/mL NT-Pro-B Natriuret Pep 1450 H (<450) pg/mL Total Protein 8.1 (6.3-8.2) g/dL Albumin 3.8 (3.5-5.0) g/dL Globulin 4.3 H (1.7-4.1) g/dL Albumin/Globulin Ratio 0.9 L (1.0-2.8) Lipase 113 (23-300) U/L Point of Care Testing Glucose POC [address] scan - head: Radiologist's Impression: [address] [address] [address] Scan Report Signed Patient: Chetna Arellano MR#: [id number] : 1945 Acct:[id number] Age/Sex: 79 / F Date of Service: 06/13/24 Loc: ED Accession Number: [id number] Procedure: CT head/brain wo con Ordering Provider: Ricky West MD PROCEDURE: CT HEAD/BRAIN WO CON INDICATIONS: fall on thinners TECHNIQUE: Noncontrast 4.5 mm thick angled axial sections acquired from the foramen magnum to the vertex, with coronal and sagittal reformats. For radiation dose reduction, the following was used: automated exposure control, adjustment of mA and/or kV according to patient size. COMPARISON: [facility], CT, CT HEAD/BRAIN WO CON, 05/17/2024, 12:49. FINDINGS: Image quality: Diagnostic. CSF spaces: Basal cisterns are patent. No extra-axial fluid collections. The ventricles are symmetric in size and shape. Brain: No intracranial bleeds or masses. There is cerebral volume loss for age, with resultant ventricular and sulcal prominence. There are periventricular and deep white matter chronic small vessel ischemic changes. There is intracranial internal carotid artery atherosclerosis. Skull and face: Right frontal scalp hematoma and swelling with small amount of subcutaneous emphysema. No acute skull fracture. Sinuses: Mucosal thickening in bilateral ethmoid sinuses are seen. Bilateral mastoid air cells are well aerated. IMPRESSION: 1. No acute intracranial pathology. 2. Right frontal scalp hematoma and swelling with subcutaneous emphysema. No acute skull fracture. Mild bilateral ethmoid sinusitis. CT - cervical spine: Radiologist's Impression: [place] [address] CT Scan Report Signed Patient: Chetna Arellano MR#: [id number] : 1945 Acct:[id number] Age/Sex: 79 / F Date of Service: 06/13/24 Loc: ED Accession Number: [id number] Procedure: CT cervical spine wo con Ordering Provider: Ricky West MD PROCEDURE: CT CERVICAL SPINE WO CON INDICATIONS: fall on thinners TECHNIQUE: Noncontrast 3 mm thick sections acquired from the skull base to the T4 level. Sagittal and coronal reformats were then constructed. For radiation dose reduction, the following was used: automated exposure control, adjustment of mA and/or kV according to patient size. COMPARISON: None. FINDINGS: Image quality: Excellent. Bones: No fractures or dislocations. Loss of disc height, degenerative endplate changes and bilateral uncovertebral hypertrophic changes are noted throughout cervical spine more notably at C5-6 and C6-7 levels. Visualized superior ribs are intact. Soft tissues: Prevertebral soft tissues are normal in thickness. No paravertebral hematomas. No apical pneumothoraces. IMPRESSION: No displaced fracture or traumatic subluxation. Multilevel spondylitic changes throughout cervical spine. Face CT: Radiologist's Impression: [address] [address] [address] Scan Report Signed Patient: Chetna Arellano MR#: [id number] : 1945 Acct:[id number] Age/Sex: 79 / F Date of Service: 06/13/24 Loc: ED Accession Number: [id number] Procedure: CT facial bones wo con Ordering Provider: Ricky West MD PROCEDURE: CT FACIAL BONES WO CON INDICATIONS: fall on thinners TECHNIQUE: Noncontrast 2.5 mm thick axial images acquired from the mandible through the frontal sinuses, with coronal and sagittal reformatting. For radiation dose reduction, the following was used: automated exposure control, adjustment of mA and/or kV according to patient size. COMPARISON: None. FINDINGS: Image quality: Excellent. Bones and teeth: Orbital ayoub are intact. Sinus ayoub show no fracture or deformity. Nasal bones and septum are intact. Visualized portions of the mandible demonstrate no fractures or subluxation. Zygomatic arches are intact. Pterygoid plates are intact. Visualized portions of the skull base and auditory canals are intact. Sinuses: There is mucosal thickening in bilateral ethmoid sinuses. Rest of the paranasal sinuses are well aerated. Mastoid air cells are aerated. Soft tissues: Right frontal scalp swelling and hematoma is seen. No enlarged lymph nodes. No soft tissue lacerations or debris. Vascular: Visualized vascular structures appear normal in the absence of contrast. Bony vascular foramina and canals are intact. IMPRESSION: 1. Right frontal scalp hematoma and swelling. No acute facial bone or nasal bone fracture. Bilateral orbital ayoub and orbital globes are intact. 2. Bilateral ethmoid sinusitis. Bilateral mastoids are well aerated. Extremity x-ray #1: Radiologist's Impression: [address] [address] XRay Report Signed Patient: Chetna Arellano MR#: [id number] : 1945 Acct:[id number] Age/Sex: 79 / F Date of Service: 06/13/24 Loc: ED Accession Number: [id number] Procedure: XR ankle RT min 3V Ordering Provider: Joel Olmos D.O. PROCEDURE: XR ANKLE RT MIN 3V INDICATIONS: fall TECHNIQUE: 3 views of the ankle were acquired. COMPARISON: None. FINDINGS: Bones: There is osteopenia. No gross acute fractures or dislocations. Osteoarthritic changes are noted in midfoot and hindfoot joints. Ankle mortise is normally aligned. No suspicious bony lesions. Soft tissues: Significant lateral ankle soft tissue swelling is seen. No tibiotalar joint effusion. Achilles tendon appears normal. IMPRESSION: No gross acute ankle fracture or dislocation. Osteopenia. Lateral ankle soft tissue swelling. Ankle joint osteoarthritis. Chest x-ray: My Impression: [address] [address] XRay Report Signed Patient: Chetna Arellano MR#: [id number] : 1945 Acct:[id number] Age/Sex: 79 / F Date of Service: 06/13/24 Loc: ED Accession Number: [id number] Procedure: XR chest 1V Ordering Provider: Ricky West MD PROCEDURE: XR CHEST 1V INDICATIONS: chest pain TECHNIQUE: One view of the chest was acquired. COMPARISON: [facility], CR, XR CHEST 1V, 05/17/2024, 11:35. [facility], CR, XR CHEST 2V, 11/01/2018, 15:05. [facility], CR, XR CHEST 2V, 10/09/2018, 5:27. [facility], CR, CHEST 2 VIEW, 11/14/2014, 16:01. FINDINGS: Surgical changes and devices: None. Lungs and pleura: Mild perihilar opacification extending to the medial lung bases. No pleural effusions or pneumothorax. Mediastinum: Mediastinal contours appear normal. Cardiomegaly. Bones and chest wall: No suspicious bony lesions. Overlying soft tissues appear unremarkable. IMPRESSION: Cardiomegaly and mild pulmonary edema, likely representing a congestive heart failure exacerbation. ECG Data Interpretation: EKG interpreted ED physician sinus 90 beats per minute occasional PVC noted QTC [address] changes no STEMI MDM Narrative Medical decision making narrative: 79-year-old female with past medical history of thromboembolic events on Xarelto, CHF, diabetes, hypertension, hyperlipidemia presenting for fall. Patient is from [place], she does intermittently require oxygen at baseline, 2 L. Patient not requiring supplemental oxygen here currently. CT scan of head face neck without any acute fractures, did show scalp hematoma with subcutaneous emphysema but without any acute skull fracture. Patient did have EKG performed here in the emergency department nonischemic in nature. Patient was also complaining of right ankle pain, x-ray without any signs of fracture dislocation, lab work not showing any leukocytosis, patient's hemoglobin baseline at 8.0, Chem panel unremarkable troponin negative, patient did have a slight bump in BNP at 1450 however she she has not requiring any supplemental oxygen, did instruct patient to increase her Lasix and follow up with her primary care doctor. Family at bedside understand and agree with patient being discharged back to facility, patient was given strict return precautions verbalized understanding of this and agrees to being discharged home with outpatient follow up Discharge Plan Departure Patient Disposition: Home Clinical Impression: Closed head injury, Ground-level fall, CHF exacerbation Instructions: DI for Closed Head Injury Activity Restrictions/Additional Instructions: Please double your Lasix for the next day, please follow up with your primary care doctor and your platform engineer in outpatient setting Please read the discharge instructions sheet carefully and bring all papers to all doctor follow-up visits, as it may contain information that your doctor may want to see. Disease processes change and evolve, if your symptoms worsen or if you develop any new symptoms that are concerning to you please return for evaluation. Your evaluation today does not show any evidence of any life- threatening/serious illnesses requiring admission to the hospital or surgery. Please follow-up with your doctor for re-evaluation in approximately 1 day. Seek immediate medical attention for any worrisome symptoms. *If you do not have a primary care provider please contact the [facility] Resource line at [phone]. They will ask some questions about your medical history and help get you set up with a doctor in the community. Prescriptions: No Action metformin 500 mg tablet 500 mg PO DAILY Rx Instructions: Take 500mg daily with breakfast spironolactone 25 mg tablet 12.5 mg PO DAILY Rx Instructions: Take 1/2 tablet by mouth in the morning daily potassium chloride 20 mEq tablet,ER particles/crystals 20 meq PO DAILY Rx Instructions: Take 1 tablet by mouth daily albuterol sulfate 90 mcg/actuation HFA aerosol inhaler 90 mcg INHALATION Q4H PRN (Reason: Wheezing) Patient Comments: [NO ORIGINAL SIG] escitalopram oxalate 20 mg tablet 20 mg PO DAILY buspirone 5 mg tablet 5 mg PO BID Rx Instructions: Take 1 tablet by mouth twice daily fluticasone propion-salmeterol 1 puff inhalation BID Rx Instructions: 100-50MCG/ACT 1 inhalation inhale orally two times a day for Copd Inhale 1 puff 2x a day rinse mouth with water after use losartan 25 mg tablet 25 mg PO DAILY Rx Instructions: Take 25 mg tablet by mouth daily atorvastatin 40 mg tablet 40 mg PO BEDTIME Rx Instructions: Give 40 mg by mouth at bedtime acetaminophen 325 mg Tablet 325 mg PO Q6H PRN (Reason: Mild Pain (Scale Score 1-4)) Rx Instructions: Take 1 tablet by mouth every 6 hours as needed for mild pain carvedilol 6.25 mg tablet 12.5 mg PO BID Patient Comments: [NO ORIGINAL SIG] Rx Instructions: Give 2 tablet by mouth two times daily diphenhydramine HCl [Allergy (diphenhydramine)] 25 mg Tablet 25 mg PO Q12H PRN (Reason: Itching) Rx Instructions: Take 1 tablet by mouth every 12 hours for itching quetiapine 25 mg Tablet 25 mg PO BEDTIME Qty: 30 0RF pantoprazole 40 mg Tablet,Delayed Release (Dr/Ec) 40 mg PO 0700 Qty: 30 0RF hydrocodone-acetaminophen 10-325 mg tablet 1 tab PO Q6H PRN (Reason: Moderate Pain (Scale Score 5-6)) 7 Days Qty: 20 0RF Rx Instructions: Give 1 tablet by mouth every 6 hours as needed for moderate pain ciprofloxacin HCl 250 mg Tablet 500 mg PO 0700,2100 Qty: 3 0RF furosemide 40 mg tablet 40 mg PO DAILY Rx Instructions: Take 1 tablet by mouth once daily Referrals: Jorge Hollis PA-C [Primary Care Provider] - Stand Alone Forms: Patient Portal/API/Survey
== END 2024-06-13 21:42 | disposition home or self-care (01) ==
PROVIDERS: Emergency Medicine; Emergency Provider Student in an Organized Health Care Education/Training Program; PCP Physician Assistant
DX: S09.90XA Unspecified injury of head, initial encounter (principal); Z79.01 Long term (current) use of anticoagulants; M25.571 Pain in right ankle and joints of right foot; W05.0XXA Fall from non-moving wheelchair, initial encounter; E11.9 Type 2 diabetes mellitus without complications; R07.9 Chest pain, unspecified
CPT/HCPCS: 70450; 70486; 71045; 72125; 73610; 80053; 82550; 83690; 83735; 83880; 84484; 85025; 85610; 85730; 93005; 99283; 99285

== ENCOUNTER → 2024-06-15 15:05 | Outpatient (ROUT) | payer MEDICARE, MEDICAID, SELFPAY ==
[2024-05-20 17:46] VITALS: BMI 33.7
[2024-06-15 17:05] LABS: Appearance Urine UA CLOUDY; Bilirubin Urine UA NEGATIVE (NEGATIVE); Color Urine UA YELLOW; Glucose Urine UA NEGATIVE (Negative); Ketones Urine UA NEGATIVE (NEGATIVE); Leukocyte Esterase Urine UA 3+ (NEGATIVE); Nitrite Urine UA NEGATIVE (Negative); Occult Blood Urine UA TRACE-LYSED (Negative); Protein Urine UA NEGATIVE (Negative); Urobilinogen Urine UA 0.2 E.U./dL (0.2)
[2024-06-15 17:38] LABS: Amorphous Sediment Urine 2+; Bacteria Urine Many (>30); Culture Indicated Urine Specimen Cultured; RBC Urine None Seen (0-5/HPF); Squamous Epithelial Cell Urine 5-10 /HPF (0-5/HPF); Urine Volume 10mL (spun); WBC Urine 10-30/HPF (0-5/HPF)
== END ==
PROVIDERS: PCP Physician Assistant; Visit Provider Physician Assistant
DX: Z13.89 Encounter for screening for other disorder (principal)
CPT/HCPCS: 81001; 87077; 87086; 87186